=== PATIENT | female | born 1950 | race Two or more races ===

== ENCOUNTER 2020-11-10 10:00 | Outpatient (RCR) | payer MEDICARE, SELFPAY | END 2020-12-15 10:14 | disposition home or self-care (01) | LOC: HO.OT 10:00 | PROVIDERS: Visit Provider Orthopaedic Surgery | DX: S52.502P Unspecified fracture of the lower end of left radius, subsequent encounter for closed fracture with malunion (principal) | CPT/HCPCS: 29125; 97110; 97165; 97760 ==

== ENCOUNTER 2024-02-01 13:22 | Emergency (ER) | payer MEDICARE, SELFPAY ==
--- NOTE | ~2024-02-01 | XR_ITS ---
EXAMINATION: XR RIBS, RIGHT CLINICAL INFORMATION: Tenderness to palpation right-sided rib cage. COMPARISON: Chest radiograph 03/29/2017. TECHNIQUE: 3 views of the right ribs were obtained. FINDINGS: Normal appearance of the cardiomediastinal silhouette. No focal consolidation, pleural effusion or pneumothorax. Nondisplaced deformity of the left posterior fourth rib. Otherwise, no evidence of displaced rib fractures. XR/XR ribs RT min 3V w CXR1V IMPRESSION: 1. Nondisplaced fracture of the left posterior fourth rib. 2. No acute cardiopulmonary findings. 3. No evidence of right-sided rib fractures. Electronically signed by: Ilene Olivas MD 02/01/2024 03:00 PM EDT
[2024-02-01 13:33] VITALS: BP 145/84; PULSE 66; RESP 14; TEMP 36.1; O2SAT 95; BMI 27.1
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
--- NOTE | 2024-02-01 15:03 | ECG_ITS ---
Test Reason : rt side pain Blood Pressure : / mmHG Vent. Rate : 060 BPM Atrial Rate : 060 BPM P-R Int : 126 ms QRS Dur : 090 ms QT Int : 356 ms P-R-T Axes : 065 053 070 degrees QTc Int : 356 ms Normal sinus rhythm Nonspecific T wave abnormality Abnormal ECG When compared with ECG of 29-MAR-2017 17:31, Nonspecific T wave abnormality now evident in Lateral leads Referred By: Cony Flores Electronically Signed By:DANNY SANCHEZ
[2024-02-01 15:44] VITALS: BP 145/84; PULSE 66; RESP 14; TEMP 36.1; O2SAT 95
== END 2024-02-01 15:45 | disposition home or self-care (01) ==
PROVIDERS: Emergency Provider Emergency Medicine Emergency Medical Services
DX: R07.89 Other chest pain (principal); N64.4 Mastodynia; S22.32XA Fracture of one rib, left side, initial encounter for closed fracture; S27.9XXA Injury of unspecified intrathoracic organ, initial encounter; X58.XXXA Exposure to other specified factors, initial encounter; Y93.9 Activity, unspecified; Y92.9 Unspecified place or not applicable; Y99.9 Unspecified external cause status
CPT/HCPCS: 71101; 93005; 99283

== ENCOUNTER 2024-03-16 10:12 | Inpatient (IN) | payer MEDICARE, MEDICAID, SELFPAY ==
--- NOTE | ~2024-03-16 | XR_ITS ---
EXAMINATION: XR CHEST CLINICAL INFORMATION: Cough COMPARISON: Chest x-ray on 03/29/2017 TECHNIQUE: Frontal view of the chest was obtained. FINDINGS: The cardiac silhouette is normal. There is mild diffuse bronchial wall thickening. There are no areas of consolidation. There are no pleural effusions or pneumothoraces. The bones and soft tissues are unremarkable for the patient's age. XR/XR chest 1V IMPRESSION: Bronchial wall thickening may be infectious and/or inflammatory in etiology. Electronically signed by: Kathleen Long MD 03/16/2024 12:36 [place] [facility] [place]
[2024-03-16 10:26] VITALS: BP 126/37; PULSE 76; RESP 18; TEMP 36; O2SAT 92; BMI 31.8
--- NOTE | 2024-03-16 14:23 | ED.GENADULT ---
HPI - General Adult General Chief complaint: Dyspnea Stated complaint: sob Time Seen by Provider: 03/16/24 14:20 Source: patient and family Mode of arrival: ambulatory Limitations: no limitations History of Present Illness ED Provider: Sandra [facility] narrative: Patient is a 73-year-old female with history of COPD, smoking, currently smoking <1/2 PPD presenting to the emergency department with complaint of ongoing shortness of breath, dyspnea on exertion, cough productive of green sputum after recent treatment with azithromycin, prednisone and albuterol. Does not currently have a PCP because she recently arrived from [place], but has an appointment to establish care with one on 03/26. Denies chest pain or palpitations. Denies fevers. MD complaint: shortness of breath Onset (ago): week(s) Relieving factors: rest Exacerbating factors: other (exertion) Associated symptoms: cough Treatments prior to arrival: other Related Data Allergies Allergy/AdvReac Type Severity Reaction Status Date / Time No Known Allergies Allergy Verified 03/16/24 10:29 Review of Systems Review of Systems: As per HPI. Yes all other systems are reviewed and are negative Constitutional: Constitutional: Reports as per HPI [facility] Social History Social History Unable to assess alcohol history related to: Unknown Use of substances other than those prescribed or required for medical reasons: Unknown Advance Directives: No Advance Directives Information Provided: Yes Do you have a plan to hurt others: No Plan Physical Exam ED Vital Signs: Vital Signs - 24 hr 03/16/24 10:26 03/16/24 15:40 03/16/24 15:46 Temperature 96.8 F 98.7 F Pulse Rate 76 77 73 Respiratory Rate 18 18 18 Blood Pressure 126/37 L 135/52 L Pulse Oximetry 92 90 L Oxygen Delivery Method Room Air Room Air Oxygen Flow Rate 03/16/24 15:59 03/16/24 15:59 Temperature Pulse Rate Respiratory Rate Blood Pressure Pulse Oximetry 83 L 93 Oxygen Delivery Method Nasal Cannula Oxygen Flow Rate 2 BMI result Body Mass Index 31.8 Vital signs have been reviewed and appear to be correct. Blood pressure normal. Heart rate normal. Respiratory rate normal. Temperature normal. Oxygen saturation normal. Const General: cooperative, healthy appearing and no acute distress Orientation/consciousness: oriented to person, oriented to place, oriented to time and patient oriented x3 Limitations: no limitations HENMT Head: Yes normocephalic and Yes atraumatic Ears: external ears normal General nose exam: Normal external nose present Face and sinus: Yes face symmetric Mouth: oropharynx normal and moist mucous membranes Throat: Yes uvula midline Eyes Pupils: Equal, round and reactive pupils present Neck Neck: Yes normal visual inspection and Yes supple Resp Effort & Inspection: normal respiratory effort and able to speak in complete sentences Auscultation: diminished lung sounds diffuse Cardio Rate: regular rate Rhythm: regular rhythm Heart sounds: S1 normal heart sound present and S2 normal heart sound present GI Palpation (GI): Soft to palpation and nontender Auscultation: normoactive bowel sounds General: Yes no CVA tenderness Back/Spine/Pelvis Back: no CVA tenderness Skin General skin exam: elasticity normal and turgor normal Neuro General: oriented to person, oriented to place, oriented to time, patient oriented x3, moves all extremities, no focal motor deficits and CN's II-XI intact bilaterally Cranial nerves: Yes Equal, round and reactive pupils present Cognition (Neuro): normal cognition Extrem General: Yes full ROM, Yes no pedal edema and Yes no calf tenderness Psych Mental Status: mental status grossly normal Affect: normal affect Thought process: Normal thought process present Medications Administered Discontinued Medications Generic Name Dose Route Start Last Admin Trade Name Freq PRN Reason Stop Dose Admin Albuterol Sulfate 2.5 mg/ 0 mg 03/16/24 15:37 03/16/24 15:40 Albuterol/Ipratropium 3 ml INHALE 03/16/24 15:38 1 dose ONCE ONE Administration Medical Decision Making Medical Decision Making [facility] Narrative: Patient is a 73-year-old female with history of COPD, smoking, currently smoking <1/2 PPD presenting to the emergency department with complaint of ongoing shortness of breath, dyspnea on exertion, cough productive of green sputum after recent treatment with azithromycin, prednisone and albuterol. On exam patient is awake, A+Ox3, hypoxic on room air, VS otherwise WNL, afebrile, normal neurological exam without focal deficits, physical exam findings as above. Given reported symptoms and physical exam findings, initial differential includes COPD exacerbation, viral illness, covid, flu, bronchitis, pneumonia. Labs notable for slight leukocytosis without left shift. X-ray chest notable for bronchial wall thickening. My interpretation is in agreement with the radiologist's interpretation. Oxygen noted to drop to 83% on room air during ambulation trial. Patient placed on oxygen at 2lpm. VBG and respiratory panel ordered as well as mag and solu-medrol. Admission accepted by Haris Garcia NP. Differential Diagnosis Differential Diagnoses: The differential diagnosis associated with the presentation includes As per [facility] Admission/Observation Consideration of admission/observation: Escalation of care including admission/observation considered Consult Healthcare Provider Management of the patient was discussed with: Hospitalist Lab Data [facility] Lab Attestation statement: I reviewed the patient's lab results. As per [facility] 03/16/24 15:18 03/16/24 15:18 Labs: Lab Results 03/16/24 03/16/24 Range/Units 14:17 15:18 WBC 11.0 H (4.8-10.8) X10*3/uL RBC 4.53 (4.20-5.50) X10*6/uL Hgb 12.5 (12.0-16.0) g/dl Hct 39.5 (37.0-47.0) % MCV 87.2 (80.0-98.0) fL MCH 27.6 (27.0-33.0) pg MCHC 31.6 (31.0-35.0) g/dl RDW 15.9 (11.0-16.0) % Plt Count 330 (160-400) X10*3/uL MPV 9.5 (9.4-12.3) fL Immature Gran % (Auto) 0.7 H (0.0-0.4) % Neut % (Auto) 65.4 (45-73) % Lymph % (Auto) 23.3 (20-40) % [place] % (Auto) 9.4 (2-11) % Eos % (Auto) 0.8 (0-4) % Baso % (Auto) 0.4 (0-2) % Lymph # (Auto) 2.6 (1.2-4.9) X10*3/uL [place] # (Auto) 1.0 (0.1-1.2) X10*3/uL Eos # (Auto) 0.1 (0.0-0.4) X10*3/uL Baso # (Auto) 0.0 (0.0-0.2) X10*3/uL Abs Immat Gran (auto) 0.08 H (0.00-0.03) X10*3/uL Absolute Neuts (auto) 7.2 (2.0-8.3) x10*3/uL Absolute Nucleated RBC 0.000 (0.0-0.012) X10*3/uL Nucleated RBC % (auto) 0.0 (0.0-0.2) /100WBC Sodium 142 (135-145) mmol/L Potassium 4.4 (3.3-5.1) mmol/L Chloride 105 (96-108) mmol/L Carbon Dioxide 27 (22-29) mmol/L Anion Gap 14 (12-20) BUN 17 H (9-16) mg/dL Creatinine 0.88 (0.5-1.4) mg/dL Estim Creat Clear Calc 59.6 Estimated GFR > 60 Random Glucose 97 (60-115) mg/dL Calcium 9.5 (8.4-10.2) mg/dL Total Bilirubin 0.4 (0.0-1.0) mg/dL AST 16 (5-31) U/L ALT 11 (0-31) U/L Alkaline Phosphatase 61 (39-117) U/L Total Protein 7.2 (6.5-8.0) g/dL Albumin 3.7 (3.5-5.0) g/dL Influenza Type A (PCR) NEGATIVE (Negative) Influenza Type B (PCR) NEGATIVE (Negative) RSV RNA Qual (PCR) NEGATIVE (Negative) SARS-CoV-2 RNA (RT-PCR) NEGATIVE (Negative) Independent Interpretation I performed an independent interpretation of an: Plain X-Ray Interpretation: Bronchial wall thickening on cxr Radiology Impression Discussion of test interpretation with radiology: I have reviewed the radiologist's reading. Radiologist Impression: XR/XR chest 1V IMPRESSION: Bronchial wall thickening may be infectious and/or inflammatory in etiology. External Record Review External record reviewed: Inpatient record, Office record and Outpatient record Prescription Management I considered prescription management with: Antibiotic and Other Chronic Conditions Patient?s care impacted by: Other Discharge Plan Discharge Patient Disposition: Admitted As Inpatient Print Language: Greenlandic
[2024-03-16 15:18] LABS: Influenza A PCR NEGATIVE (Negative); Influenza B PCR NEGATIVE (Negative); Resp Syncy Virus RNA Qual PCR NEGATIVE (Negative); SARS COV2 PCR INHOUSE NEGATIVE (Negative)
[2024-03-16 15:21] LABS: MANUAL DIFF FLAG NO
[2024-03-16 15:24] LABS: Basophils Percent Auto 0.4 % (0-2); Eosinophils Absolute Auto 0.1 X10*3/uL (0.0-0.4); Eosinophils Percent Auto 0.8 % (0-4); Hematocrit 39.5 % (37.0-47.0); Hemoglobin 12.5 g/dl (12.0-16.0); Imm Gran Abs Auto 0.08 X10*3/uL (0.00-0.03); Imm Gran Pct Auto 0.7 % (0.0-0.4); Lymphocytes Absolute Auto 2.6 X10*3/uL (1.2-4.9); Lymphocytes Percent Auto 23.3 % (20-40); Mean Corpuscular HGB Conc 31.6 g/dl (31.0-35.0); Mean Corpuscular Hemoglobin 27.6 pg (27.0-33.0); Mean Corpuscular Volume 87.2 fL (80.0-98.0); Mean Platelet Volume 9.5 fL (9.4-12.3); Monocytes Percent Auto 9.4 % (2-11); Neutrophils Absolute Auto 7.2 x10*3/uL (2.0-8.3); Neutrophils Percent Auto 65.4 % (45-73); Platelet Count 330 X10*3/uL (160-400); Red Blood Count 4.53 X10*6/uL (4.20-5.50); Red Cell Distribution Width 15.9 % (11.0-16.0)
[2024-03-16 15:38] LABS: Alanine Aminotransferase 11 U/L (0-31); Albumin Level 3.7 g/dL (3.5-5.0); Alkaline Phosphatase 61 U/L (39-117); Anion Gap 14 (12-20); Aspartate Amino Transferase 16 U/L (5-31); Bilirubin Total 0.4 mg/dL (0.0-1.0); Blood Urea Nitrogen 17 mg/dL (9-16); Calcium 9.5 mg/dL (8.4-10.2); Carbon Dioxide 27 mmol/L (22-29); Chloride 105 mmol/L (96-108); Creatinine Clr Calc Pharmacy 59.6; Estimated Glomerular Filt Rate > 60; Glucose Random 97 mg/dL (60-115); Potassium 4.4 mmol/L (3.3-5.1); Sodium 142 mmol/L (135-145); Total Protein 7.2 g/dL (6.5-8.0)
[2024-03-16 15:40] VITALS: PULSE 77; RESP 18; O2SAT 91
[2024-03-16] MEDS: Albuterol Sulfate 2.5 MG, Albuterol/Iprat 2.5/0.5MG 3 ML 3 ML INHALE (15:40)
[2024-03-16 15:46] VITALS: BP 135/52; PULSE 73; RESP 18; TEMP 37.1; O2SAT 90
[2024-03-16 15:59] VITALS: O2SAT 83; O2SAT 93
--- NOTE | 2024-03-16 15:59 | PC.NURSE ---
this nurse took over care of patient at 3pm, RT was at bedside giving patient an updraft, this nurse obtained vitals while updraft was obtained pt was low 90s during updraft, a walking O2 ambulatioin trial was done- pt became WOO and began wheezing, pt O2 sat dropped to 83%, pt was returned to [facility] and placed on O2- pt currently 94% on 2L NC
[2024-03-16 17:21] LABS: Venous Blood Gas Refer to POC result
[2024-03-16 17:23] LABS: VBG Base Excess 5.2 mmol/L; VBG HCO3 31 mmol/L (22-26); VBG pCO2 53 mmHg; VBG pH 7.38 (7.32-7.43); VBG pO2 59 mmHg
--- NOTE | 2024-03-16 17:26 | PM.IMHP ---
History of Present Illness Date of Service: 03/16/24 Chief Complaint: cough 73-year-old woman presented with complaints of worsening shortness of breath and cough. She reports that she was treated for COPD exacerbation paroxysmal 1 week ago and completed a short steroid taper and antibiotics but she continued to feel unwell. She went to urgent care today and they sent her to the ER. Chest x-ray did show possible infectious process. Flu, RSV and COVID negative. No fever leukocytosis. Patient denied chest pain, nausea, vomiting, diarrhea, recent illness, sick contacts. She reports that she still smokes about half a pack of cigarettes a day. In the ER she was given a dose of albuterol, Rocephin, doxycycline and Solu-Medrol. She will be admitted for further management and treatment of acute hypoxic respiratory failure secondary to COPD exacerbation and pneumonia. Review of Systems Review of Systems: Denies any recent fever chills or decrease in appetite respiratory See HPI cardiovascular denied chest pain gastrointestinal denies any dysphagia abdominal pain nausea vomiting or diarrhea genitourinary denies any dysuria frequency or hematuria musculoskeletal denies any joint pain or swelling neuropsych denies any weakness or seizures all other systems reviewed are negative [facility] Medical History (Updated 03/16/24 @ 17:28 by Sabrina Garcia NP) Smoker COPD (chronic obstructive pulmonary disease) Social History Unable to assess alcohol history related to: Unknown Patient Tobacco Use Status: Current everyday Tobacco user Use of substances other than those prescribed or required for medical reasons: Unknown Advance Directives: No Advance Directives Information Provided: Yes Do you have a plan to hurt others: No Plan Nutrition Risks: No Nutritional Risk Meds Allergies Allergy/AdvReac Type Severity Reaction Status Date / Time No Known Allergies Allergy Verified 03/16/24 10:29 Active Medications: Current Medications Acetaminophen (Acetaminophen 325 Mg Tablet) 650 mg PO Q6H PRN PRN Reason: Pain, Mild (Pain Scale 1-3), fever or headache Albuterol Sulfate (Albuterol Sulfate (0.083%) 2.5 Mg/3 Ml Vial.Neb) 2.5 mg INHALE RQ4H WHILE AWAKE ASHELY Calcium Carbonate (Calcium Carbonate 750 Mg Tab.Chew) 750 mg PO Q4H PRN PRN Reason: Heartburn Ceftriaxone Sodium (Ceftriaxone Sodium 1 Gm Vial) 1 gm IVPUSH Q24H ASHELY Enoxaparin Sodium (Enoxaparin Sodium 40 Mg/0.4 Ml Syringe) 40 mg SUBCUT Q24H ASHELY Magnesium Sulfate (Magnesium Sulfate/H2o) 2 gm in 50 mls @ 25 mls/hr IV ONCE ONE Stop: 03/16/24 18:26 Azithromycin 500 mg/ Sodium (Chloride) 250 mls @ 125 mls/hr IV Q24H ASHELY Magnesium Hydroxide (Milk Of Magnesia 30 Ml Oral.Susp) 30 ml PO DAILY PRN PRN Reason: Constipation Melatonin (Melatonin 3 Mg Tablet) 6 mg PO BEDTIME PRN PRN Reason: Insomnia Methylprednisolone Sodium Succinate (Methylprednisolone Sod Succ 40 Mg/Ml Vial) 40 mg IVPUSH Q12H ASHELY Ondansetron HCl (Ondansetron Hcl 4 Mg/2 Ml Vial) 4 mg IVPUSH Q8H PRN PRN Reason: Nausea and Vomiting Sodium Chloride (0.9 % Sodium Chloride Flush 3 Ml Syringe) 3 ml IVFLUSH QSHIFT [facility] Home Medications ?Medication ?Instructions ?Recorded ?Confirmed ?Last Taken ?Type albuterol sulfate 0.63 mg/3 mL 0.63 mg inhalation Q4-6H wheezing 03/16/24 Unknown History solution for nebulization Physical Exam Vital Signs and Narrative: Vital Signs: Last Vital Signs Temp 98.7 F 03/16/24 15:46 Pulse 73 03/16/24 15:46 Resp 18 03/16/24 15:46 BP 135/52 L 03/16/24 15:46 Pulse Ox 93 03/16/24 15:59 O2 Del Method Nasal Cannula 03/16/24 15:59 O2 Flow Rate 2 03/16/24 15:59 BMI result Body Mass Index 31.8 Appearing in no acute distress head is normocephalic atraumatic eyes pupils are PERRLA sclera is anicteric mouth throat mucous membranes are intact and moist neck is supple no lymphadenopathy, no JVD noted lung sounds diminished heart regular rate rhythm, clear S1, S2 positive bowel sounds, abdomen is soft, nontender neuro patient is alert x3, no focal deficits Results Labs 03/16/24 15:18 03/16/24 15:18 Labs: Laboratory Results - last 24 hr 03/16/24 03/16/24 03/16/24 14:17 15:18 17:18 MCV 87.2 MCH 27.6 MCHC 31.6 RDW 15.9 Plt Count 330 MPV 9.5 Immature Gran % (Auto) 0.7 H Neut % (Auto) 65.4 Lymph % (Auto) 23.3 [place] % (Auto) 9.4 Eos % (Auto) 0.8 Baso % (Auto) 0.4 Lymph # (Auto) 2.6 [place] # (Auto) 1.0 Eos # (Auto) 0.1 Baso # (Auto) 0.0 Abs Immat Gran (auto) 0.08 H Absolute Neuts (auto) 7.2 Absolute Nucleated RBC 0.000 Nucleated RBC % (auto) 0.0 VBG pH 7.38 VBG pCO2 53 VBG pO2 59 VBG HCO3 31 H VBG O2 Saturation 91.0 VBG Base Excess 5.2 Anion Gap 14 Estim Creat Clear Calc 59.6 Estimated GFR > 60 Random Glucose 97 Calcium 9.5 Total Bilirubin 0.4 AST 16 ALT 11 Alkaline Phosphatase 61 Total Protein 7.2 Albumin 3.7 Influenza Type A (PCR) NEGATIVE Influenza Type B (PCR) NEGATIVE RSV RNA Qual (PCR) NEGATIVE SARS-CoV-2 RNA (RT-PCR) NEGATIVE Imaging Radiologist's Impressions: Impressions Chest X-Ray 03/16/24 10:50 IMPRESSION: Bronchial wall thickening may be infectious and/or inflammatory in etiology. Electronically signed by: Kathleen Long MD 03/16/2024 12:[address] [facility] Assessment and Plan (1) Acute exacerbation of chronic obstructive airways disease: Status: Acute Plan 73-year-old woman admitted with acute hypoxic respiratory failure secondary to COPD exacerbation and pneumonia Acute hypoxic respiratory failure secondary to COPD and pneumonia Failed outpatient therapy Rocephin and azithromycin Supplemental oxygen to keep oxygen saturation greater than 91% Cough suppressant Solu-Medrol, scheduled DuoNebs Smoker Discussed the importance of smoking cessation Nicotine replacement Obesity class 1. BMI 31.8 Discussed importance of weight management as this may be contributing to worsening of other comorbidities DVT prophylaxis with Lovenox Full code Quality Stroke Does the patient have a stroke diagnosis?: No VTE Prior VTE?: No VTE Risk Level:: Medical - moderate - high VTE Device Contraindication: Treatment Not Indicated VTE Drug Contraindication: N/A - Med Ordered
[2024-03-16] MEDS: cefTRIAXone sodium 1 GM VIAL IVPUSH (17:40)
[2024-03-16] MEDS: methylPREDNISolone Sod Succ 125 MG/2 ML VIAL 60 MG IVPUSH (17:40)
[2024-03-16] MEDS: Doxycycline Monohydrate 100 MG CAPSULE PO (17:40)
[2024-03-16] MEDS: Enoxaparin Sodium 40 MG/0.4 ML SYRINGE SUBCUT (17:41)
[2024-03-16] MEDS: Magnesium Sulfate/H2O 2 GM/50 ML PIGGYBACK IV (17:46)
--- NOTE | 2024-03-16 17:50 | PC.NURSE ---
pt medicated per orders, pt did not have blood cultures or lactic done- this nurse spoke with the provider who stated pt was COPD and white count wasnt elevated enough to require cultures/lactic. pt was medicated with abx per orders.
--- NOTE | 2024-03-16 17:57 | PHA.MEDREC ---
Addendum entered by Dayna Burnett RPh 03/16/24 18:27: Med rec reviewed by this [facility]. Original Note: Pharmacy Consult ? Medication Reconciliation Pharmacy has completed the medication reconciliation. Confirmed medications with patient family at bedside. They confirmed she finished the Albuterol inhaler, Prednisone 10mg tabs and Azithromycin 250mg tab last night. They confirmed she does not take any other medications; prescription or OTC.
[2024-03-16] MEDS: Azithromycin 500 MG in 0.9 % Sodium Chloride 250 ML 125 MG IV (18:16)
[2024-03-16] MEDS: Albuterol Sulfate (0.083%) 2.5 MG/3 ML VIAL.NEB INHALE (19:13)
[2024-03-16 19:14] VITALS: PULSE 73; RESP 18; O2SAT 95
[2024-03-17] VITALS (9 sets, daily range): BP systolic 131–160; BP diastolic 55–70; PULSE 65–90; RESP 16–18; TEMP 36.3–36.8; O2SAT 91–98; BMI 31.7
--- NOTE | 2024-03-17 00:47 | MHC.EDTECH ---
This pct assumed care of Patient at 0000 ,vitals taken and Patient belongings list done ,Call buchanan within Pt reach .
[2024-03-17 06:31] LABS: Basophils Percent Auto 0.1 % (0-2); Hematocrit 35.8 % (37.0-47.0); Hemoglobin 11.4 g/dl (12.0-16.0); Imm Gran Pct Auto 0.6 % (0.0-0.4); Lymphocytes Absolute Auto 1.2 X10*3/uL (1.2-4.9); Lymphocytes Percent Auto 7.7 % (20-40); MANUAL DIFF FLAG SCAN; Mean Corpuscular HGB Conc 31.8 g/dl (31.0-35.0); Mean Corpuscular Hemoglobin 27.5 pg (27.0-33.0); Mean Corpuscular Volume 86.5 fL (80.0-98.0); Mean Platelet Volume 9.7 fL (9.4-12.3); Monocytes Absolute Auto 0.2 X10*3/uL (0.1-1.2); Monocytes Percent Auto 1.3 % (2-11); Neutrophils Absolute Auto 14.1 x10*3/uL (2.0-8.3); Neutrophils Percent Auto 90.3 % (45-73); Platelet Count 328 X10*3/uL (160-400); Red Blood Count 4.14 X10*6/uL (4.20-5.50); Red Cell Distribution Width 15.7 % (11.0-16.0); SCAN SMEAR FLAG 1; White Blood Count 15.6 X10*3/uL (4.8-10.8)
[2024-03-17 06:53] LABS: Anion Gap 16 (12-20); Blood Urea Nitrogen 21 mg/dL (9-16); Calcium 9.4 mg/dL (8.4-10.2); Carbon Dioxide 25 mmol/L (22-29); Chloride 104 mmol/L (96-108); Creatinine Clr Calc Pharmacy 60.4; Estimated Glomerular Filt Rate > 60; Glucose Random 148 mg/dL (60-115); Magnesium 2.4 mg/dL (1.6-2.6); Potassium 4.6 mmol/L (3.3-5.1); Sodium 140 mmol/L (135-145)
[2024-03-17 07:23] LABS: SLIDE REVIEW VERIFIED
[2024-03-17] MEDS: Albuterol Sulfate (0.083%) 2.5 MG/3 ML VIAL.NEB INHALE ×4 (07:39→20:27)
--- NOTE | 2024-03-17 09:07 | MHC.CM.PN ---
IMM 03/17/24 Female DX COPD EXAC. Her son lives with her. She uses a cane prn. She could uses help with ADLs per son, Lux. A referral has been sent to [facility]. A new PCP appointment is scheduled 03/26/24 with Gemini Davalos. A HCP has been documented, copied + scanned into EMR. DP home with [facility]. Patients son will provide transportation home at discharge.
[2024-03-17] MEDS: guaiFENesin DM 100/10/5 ML 5 ML SYRUP PO ×2 (09:31→17:17)
[2024-03-17] MEDS: Nicotine Polacrilex 2 MG GUM BUCCAL ×2 (09:31→17:09)
[2024-03-17 09:35] LABS: Adenovirus PCR Not Detected (Not Detect.); Bordetella parapertussis PCR Not Detected (Not Detect.); Bordetella pertussis PCR Not Detected (Not Detect.); Chlamydia pneumoniae PCR Not Detected (Not Detect.); Coronavirus 229E PCR Not Detected (Not Detect.); Coronavirus HKU1 PCR Not Detected (Not Detect.); Coronavirus NL63 PCR Not Detected (Not Detect.); Coronavirus OC43 PCR Not Detected (Not Detect.); Human metapneumovirus PCR Not Detected (Not Detect.); Influenza A PCR Not Detected (Not Detect.); Influenza B PCR Not Detected (Not Detect.); Mycoplasma pneumoniae PCR Not Detected (Not Detect.); Parainfluenza 1 PCR Not Detected (Not Detect.); Parainfluenza 2 PCR Not Detected (Not Detect.); Parainfluenza 3 PCR Not Detected (Not Detect.); Parainfluenza 4 PCR Not Detected (Not Detect.); RSV PCR Not Detected (Not Detect.); Rhino/Enterovirus PCR Not Detected (Not Detect.)
[2024-03-17] MEDS: Flu Vacc TS2024-25(6mos up)/PF 0.5 ML SYRINGE IM (09:52)
[2024-03-17 10:03] LABS: SARS-CoV-2 PCR Not Detected (Not Detect.)
--- NOTE | 2024-03-17 10:20 | HO.PM.IMPN ---
Subjective Subjective Date of Service: 03/17/24 Review of Systems Follow up COPD exacerabtion feeling better but still wheezy Physical Exam Vital Signs: Vital Signs: Last Vital Signs Temp 97.3 F 03/17/24 08:00 Pulse 84 03/17/24 08:00 Resp 18 03/17/24 08:00 BP 160/70 H 03/17/24 08:00 Pulse Ox 91 L 03/17/24 08:00 O2 Del Method Room Air 03/17/24 08:00 O2 Flow Rate 1 03/17/24 06:17 BMI result Body Mass Index 31.7 Appearing in no acute distress lung sounds exp wheezing heart regular rate rhythm, clear S1, S2 positive bowel sounds, abdomen is soft, nontender neuro patient is alert x3, no focal deficits Objective Data Active Medications Acetaminophen (Acetaminophen 325 Mg Tablet) 650 mg PO Q6H PRN PRN Reason: Pain, Mild (Pain Scale 1-3), fever or headache Albuterol Sulfate (Albuterol Sulfate (0.083%) 2.5 Mg/3 Ml Vial.Neb) 2.5 mg INHALE RQ4H WHILE AWAKE [facility] Last Admin: 03/17/24 07:39 Dose: 2.5 mg Documented By: LAURENT Calcium Carbonate (Calcium Carbonate 750 Mg Tab.Chew) 750 mg PO Q4H PRN PRN Reason: Heartburn Ceftriaxone Sodium (Ceftriaxone Sodium 1 Gm Vial) 1 gm IVPUSH Q24H [facility] Enoxaparin Sodium (Enoxaparin Sodium 40 Mg/0.4 Ml Syringe) 40 mg SUBCUT Q24H [facility] Last Admin: 03/16/24 17:41 Dose: 40 mg Documented By: DUSTIN Guaifenesin/Dextromethorphan (Guaifenesin Dm 100/10/5 Ml 5 Ml Syrup) 5 ml PO Q4H PRN PRN Reason: Cough Last Admin: 03/17/24 09:31 Dose: 5 ml Documented By: CHUCK Azithromycin 500 mg/ Sodium (Chloride) 250 mls @ 125 mls/hr IV Q24H [facility] Last Infusion: 03/17/24 08:42 Dose: Infused Documented By: CHUCK Magnesium Hydroxide (Milk Of Magnesia 30 Ml Oral.Susp) 30 ml PO DAILY PRN PRN Reason: Constipation Melatonin (Melatonin 3 Mg Tablet) 6 mg PO BEDTIME PRN PRN Reason: Insomnia Methylprednisolone Sodium Succinate (Methylprednisolone Sod Succ 40 Mg/Ml Vial) 40 mg IVPUSH Q12H [facility] Nicotine Polacrilex (Nicotine Polacrilex 2 Mg Gum) 2 mg BUCCAL Q1H PRN PRN Reason: Nicotine Cravings Last Admin: 03/17/24 09:31 Dose: 2 mg Documented By: CHUCK Ondansetron HCl (Ondansetron Hcl 4 Mg/2 Ml Vial) 4 mg IVPUSH Q8H PRN PRN Reason: Nausea and Vomiting Sodium Chloride (0.9 % Sodium Chloride Flush 3 Ml Syringe) 3 ml IVFLUSH QSHIFT [facility] Last Admin: 03/17/24 08:42 Dose: Not Given Documented By: CHUCK Non-Admin Reason: Off Unit: Surgery Labs 03/17/24 06:23 03/17/24 06:23 Labs: Laboratory Results - last 24 hr 03/16/24 03/16/24 03/16/24 14:17 15:18 17:18 MCV 87.2 MCH 27.6 MCHC 31.6 RDW 15.9 Plt Count 330 MPV 9.5 Immature Gran % (Auto) 0.7 H Neut % (Auto) 65.4 Lymph % (Auto) 23.3 [place] % (Auto) 9.4 Eos % (Auto) 0.8 Baso % (Auto) 0.4 Lymph # (Auto) 2.6 [place] # (Auto) 1.0 Eos # (Auto) 0.1 Baso # (Auto) 0.0 Abs Immat Gran (auto) 0.08 H Absolute Neuts (auto) 7.2 Absolute Nucleated RBC 0.000 Nucleated RBC % (auto) 0.0 Smear Tech's Comments VBG pH 7.38 VBG pCO2 53 VBG pO2 59 VBG HCO3 31 H VBG O2 Saturation 91.0 VBG Base Excess 5.2 Anion Gap 14 Estim Creat Clear Calc 59.6 Estimated GFR > 60 Random Glucose 97 Calcium 9.5 Magnesium Total Bilirubin 0.4 AST 16 ALT 11 Alkaline Phosphatase 61 Total Protein 7.2 Albumin 3.7 Respiratory Panel [place]alera Adenovirus (Rapid PCR) B.pert (TEM-PCR) B.parapertussis DNA PCR C. pneumoniae DNA (PCR) Coronavirus OC43 (PCR) Coronavirus HKU1 (PCR) Coronavirus 229E (PCR) Coronavirus NL63 (PCR) Human Metapneumovir PCR Influenza A (RT-PCR) Influenza Type A (PCR) NEGATIVE Influenza B (RT-PCR) Influenza Type B (PCR) NEGATIVE M. pneumoniae (PCR) Parainfluenza 1 (PCR) Parainfluenza 2 (PCR) Parainfluenza 3 (PCR) Parainfluenza 4 (PCR) RSV (PCR) RSV RNA Qual (PCR) NEGATIVE Entero/Rhino (PCR) SARS-CoV-2 RNA (RT-PCR) NEGATIVE 03/16/24 03/17/24 19:52 06:23 MCV 86.5 MCH 27.5 MCHC 31.8 RDW 15.7 Plt Count 328 MPV 9.7 Immature Gran % (Auto) 0.6 H Neut % (Auto) 90.3 H Lymph % (Auto) 7.7 L [place] % (Auto) 1.3 L Eos % (Auto) 0.0 Baso % (Auto) 0.1 Lymph # (Auto) 1.2 [place] # (Auto) 0.2 Eos # (Auto) 0.0 Baso # (Auto) 0.0 Abs Immat Gran (auto) 0.10 H Absolute Neuts (auto) 14.1 H Absolute Nucleated RBC 0.000 Nucleated RBC % (auto) 0.0 Smear Tech's Comments VERIFIED VBG pH VBG pCO2 VBG pO2 VBG HCO3 VBG O2 Saturation VBG Base Excess Anion Gap 16 Estim Creat Clear Calc 60.4 Estimated GFR > 60 Random Glucose 148 H Calcium 9.4 Magnesium 2.4 Total Bilirubin AST ALT Alkaline Phosphatase Total Protein Albumin Respiratory Panel Escalera See Note Adenovirus (Rapid PCR) Not Detected B.pert (TEM-PCR) Not Detected B.parapertussis DNA PCR Not Detected C. pneumoniae DNA (PCR) Not Detected Coronavirus OC43 (PCR) Not Detected Coronavirus HKU1 (PCR) Not Detected Coronavirus 229E (PCR) Not Detected Coronavirus NL63 (PCR) Not Detected Human Metapneumovir PCR Not Detected Influenza A (RT-PCR) Not Detected Influenza Type A (PCR) Influenza B (RT-PCR) Not Detected Influenza Type B (PCR) M. pneumoniae (PCR) Not Detected Parainfluenza 1 (PCR) Not Detected Parainfluenza 2 (PCR) Not Detected Parainfluenza 3 (PCR) Not Detected Parainfluenza 4 (PCR) Not Detected RSV (PCR) Not Detected RSV RNA Qual (PCR) Entero/Rhino (PCR) Not Detected SARS-CoV-2 RNA (RT-PCR) Not Detected Assessment and Plan (1) Acute exacerbation of chronic obstructive airways disease: Status: Acute Plan 73-year-old woman admitted with acute hypoxic respiratory failure secondary to COPD exacerbation and pneumonia Acute hypoxic respiratory failure secondary to COPD and pneumonia Failed outpatient therapy Continue Rocephin and azithromycin, cough suppressant Solu-Medrol, scheduled DuoNebs Supplemental oxygen to keep oxygen saturation greater than 91% Leukocytosis Likely secondary to steroids Smoker Discussed the importance of smoking cessation Nicotine replacement Obesity class 1. BMI 31.7 Discussed importance of weight management as this may be contributing to worsening of other comorbidities DVT prophylaxis with Lovenox Attending Dr. Vora Full code Quality Stroke Does the patient have a stroke diagnosis?: No VTE Prior VTE?: No VTE Risk Level:: Medical - moderate - high VTE Device Contraindication: Treatment Not Indicated VTE Drug Contraindication: N/A - Med Ordered
[2024-03-17] MEDS: Enoxaparin Sodium 40 MG/0.4 ML SYRINGE SUBCUT (17:08)
[2024-03-17] MEDS: cefTRIAXone sodium 1 GM VIAL IVPUSH (17:09)
[2024-03-17] MEDS: 0.9 % Sodium Chloride Flush 3 ML SYRINGE IVFLUSH ×2 (17:09→22:00)
[2024-03-17] MEDS: Azithromycin 500 MG in 0.9 % Sodium Chloride 250 ML 125 MG IV (17:17)
--- NOTE | 2024-03-17 18:07 | P.DS_ITS ---
DS: Providers Provider Date of admission: 03/16/24 17:19 Primary care physician: Lindsay Nelson MD DS: Diagnosis Discharge Diagnosis (1) Acute exacerbation of chronic obstructive airways disease: Status: Acute DS: Summary Hospital Course Hospital Course: HP as per admitting provider. 73-year-old woman presented with complaints of worsening shortness of breath and cough. She reports that she was treated for COPD exacerbation paroxysmal 1 week ago and completed a short steroid taper and antibiotics but she continued to feel unwell. She went to urgent care today and they sent her to the ER. Chest x-ray did show possible infectious process. Flu, RSV and COVID negative. No fever leukocytosis. Patient denied chest pain, nausea, vomiting, diarrhea, recent illness, sick contacts. She reports that she still smokes about half a pack of cigarettes a day. In the ER she was given a d ose of albuterol, Rocephin, doxycycline and Solu-Medrol. She will be admitted for further management and treatment of acute hypoxic respiratory failure secondary to COPD exacerbation and pneumonia. 73 year old women admitted for acute hypoxic respiratory failure secondary to COPD exacerbation and pneumonia. Treated with scheduled IV steroids and duonebs as well as rocephin and azithromycin for pneumonia. Patient has been off oxygen and ambulating without difficulty. Leukocytosis secondary to steroid use and not sepsis. She is a smoker and was educated in the importance of smoking cessation to avoid further episodes of COPD exacerbation. Plan is to discharge patient on short course of prednisone taper and albuterol inhalor. She can follow up with her PCP on management of this. Obesity class 1. BMI 31.7 Discussed importance of weight management as this may be contributing to worsening of other comorbidities Physical Exam Vital Signs: Vital Signs: Last Vital Signs Temp 97.8 F 03/17/24 15:29 Pulse 90 03/17/24 17:04 Resp 17 03/17/24 17:04 BP 132/58 L 03/17/24 15:29 Pulse Ox 92 03/17/24 15:29 O2 Del Method Room Air 03/17/24 15:29 O2 Flow Rate 1 03/17/24 06:17 BMI result Body Mass Index 31.7 DS: Data Data Completed and Pending Labs on day of discharge: Laboratory Results - last 24 hr 03/16/24 03/17/24 19:52 06:23 WBC 15.6 H RBC 4.14 L Hgb 11.4 L Hct 35.8 L MCV 86.5 MCH 27.5 MCHC 31.8 RDW 15.7 Plt Count 328 MPV 9.7 Immature Gran % (Auto) 0.6 H Neut % (Auto) 90.3 H Lymph % (Auto) 7.7 L [place] % (Auto) 1.3 L Eos % (Auto) 0.0 Baso % (Auto) 0.1 Lymph # (Auto) 1.2 [place] # (Auto) 0.2 Eos # (Auto) 0.0 Baso # (Auto) 0.0 Abs Immat Gran (auto) 0.10 H Absolute Neuts (auto) 14.1 H Absolute Nucleated RBC 0.000 Nucleated RBC % (auto) 0.0 Smear Tech's Comments VERIFIED Sodium 140 Potassium 4.6 Chloride 104 Carbon Dioxide 25 Anion Gap 16 BUN 21 H Creatinine 0.87 Estim Creat Clear Calc 60.4 Estimated GFR > 60 Random Glucose 148 H Calcium 9.4 Magnesium 2.4 Respiratory Panel Escalera See Note Adenovirus (Rapid PCR) Not Detected B.pert (TEM-PCR) Not Detected B.parapertussis DNA PCR Not Detected C. pneumoniae DNA (PCR) Not Detected Coronavirus OC43 (PCR) Not Detected Coronavirus HKU1 (PCR) Not Detected Coronavirus 229E (PCR) Not Detected Coronavirus NL63 (PCR) Not Detected Human Metapneumovir PCR Not Detected Influenza A (RT-PCR) Not Detected Influenza B (RT-PCR) Not Detected M. pneumoniae (PCR) Not Detected Parainfluenza 1 (PCR) Not Detected Parainfluenza 2 (PCR) Not Detected Parainfluenza 3 (PCR) Not Detected Parainfluenza 4 (PCR) Not Detected RSV (PCR) Not Detected Entero/Rhino (PCR) Not Detected SARS-CoV-2 RNA (RT-PCR) Not Detected Discharge Plan Discharge Patient Disposition: Home, Self-Care Discharge Diagnosis: COPD exacerbation Referrals: Lindsay Nelson MD [Primary Care Provider] - 1 Week Discharge Medications: New albuterol sulfate 90 mcg/actuation aerosol powdr breath activated 2 inh inhalation Q4H PRN (Reason: shortness of breath or wheezing) Qty: 1 0RF prednisone 10 mg tablet See Taper PO DIRECTED Qty: 20 0RF Taper: Prednisone 40 mg daily for 2 Days and 0 Hour 30 mg daily for 2 Days and 0 Hour 20 mg daily for 2 Days and 0 Hour 10 mg daily for 2 Days and 0 Hour Rx Instructions: see taper instructions No Action No Known Home Meds Diet: Advance to usual diet Activity on Discharge: As tolerated Stand Alone Forms: Patient Portal Discharge page Print Language: [place]anian Care Plan Goals: Complete prednisone taper use albuterol as needed Health Concerns: COPD exacerbation Plan of Treatment: Follow up with primary care provider as needed Assessment: See discharge summary
[2024-03-17] MEDS: methylPREDNISolone Sod Succ 40 MG/ML VIAL IVPUSH (21:59)
[2024-03-18] VITALS (8 sets, daily range): BP systolic 142–163; BP diastolic 63–71; PULSE 62–79; RESP 16–24; TEMP 36.1–37.1; O2SAT 91–98
[2024-03-18] MEDS: Albuterol Sulfate (0.083%) 2.5 MG/3 ML VIAL.NEB INHALE ×4 (03:30→21:09)
[2024-03-18] MEDS: methylPREDNISolone Sod Succ 40 MG/ML VIAL IVPUSH (08:25)
[2024-03-18] MEDS: 0.9 % Sodium Chloride Flush 3 ML SYRINGE IVFLUSH ×3 (08:25→20:14)
--- NOTE | 2024-03-18 11:25 | MHC.CM.PN ---
Per MD rounds no DC today. Patient continues with wheezing. Steroid dose has been increased. DP home with [facility]. Her son will provide transportation home.
--- NOTE | 2024-03-18 12:03 | P.PNIM_ITS ---
Subjective Subjective Date of Service: 03/18/24 Interval History: Minimal improvement since admission per patient. States feels short of breath with minimal exertion Review of Systems Denies chest pain Admits shortness of breath Denies nausea vomiting diarrhea Denies fever chills Physical Exam 2 Vital Signs: Vital Signs: Last Vital Signs Temp 97.6 F 03/18/24 07:36 Pulse 76 03/18/24 11:40 Resp 18 03/18/24 11:40 BP 145/65 H 03/18/24 07:36 Pulse Ox 97 03/18/24 07:36 O2 Del Method Room Air 03/18/24 07:36 O2 Flow Rate 1 03/17/24 06:17 BMI result Body Mass Index 31.7 Const: Other: Awake alert oriented x3 speaking in short sentences only Resp: Other: Diminished throughout with dense expiratory wheezes in bases Cardio: Other: No S4; positive S1-S2; no S3 murmurs rubs or gallops GI: Other: Soft nontender nondistended normoactive bowel sounds Neuro: Other: Cranial nerves 2-12 grossly intact as tested. Motor 5/5 all extremities. Sensation is intact. Gait not observed Extrem: Other: No edema bilaterally Objective Data Active Medications Acetaminophen (Acetaminophen 325 Mg Tablet) 650 mg PO Q6H PRN PRN Reason: Pain, Mild (Pain Scale 1-3), fever or headache Albuterol Sulfate (Albuterol Sulfate (0.083%) 2.5 Mg/3 Ml Vial.Neb) 2.5 mg INHALE RQ4H WHILE AWAKE [facility] Last Admin: 03/18/24 11:38 Dose: 2.5 mg Documented By: TRINA Calcium Carbonate (Calcium Carbonate 750 Mg Tab.Chew) 750 mg PO Q4H PRN PRN Reason: Heartburn Ceftriaxone Sodium (Ceftriaxone Sodium 1 Gm Vial) 1 gm IVPUSH Q24H [facility] Last Admin: 03/17/24 17:09 Dose: 1 gm Documented By: CHUCK Enoxaparin Sodium (Enoxaparin Sodium 40 Mg/0.4 Ml Syringe) 40 mg SUBCUT Q24H [facility] Last Admin: 03/17/24 17:08 Dose: 40 mg Documented By: CHUCK Guaifenesin/Dextromethorphan (Guaifenesin Dm 100/10/5 Ml 5 Ml Syrup) 5 ml PO Q4H PRN PRN Reason: Cough Last Admin: 03/17/24 17:17 Dose: 5 ml Documented By: CHUCK Azithromycin 500 mg/ Sodium (Chloride) 250 mls @ 125 mls/hr IV Q24H [facility] Last Infusion: 03/17/24 20:47 Dose: Infused Documented By: JONATHAN Magnesium Hydroxide (Milk Of Magnesia 30 Ml Oral.Susp) 30 ml PO DAILY PRN PRN Reason: Constipation Melatonin (Melatonin 3 Mg Tablet) 6 mg PO BEDTIME PRN PRN Reason: Insomnia Methylprednisolone Sodium Succinate (Methylprednisolone Sod Succ 125 Mg/2 Ml Vial) 60 mg IVPUSH Q6H [facility] Nicotine Polacrilex (Nicotine Polacrilex 2 Mg Gum) 2 mg BUCCAL Q1H PRN PRN Reason: Nicotine Cravings Last Admin: 03/17/24 17:09 Dose: 2 mg Documented By: CHUCK Ondansetron HCl (Ondansetron Hcl 4 Mg/2 Ml Vial) 4 mg IVPUSH Q8H PRN PRN Reason: Nausea and Vomiting Sodium Chloride (0.9 % Sodium Chloride Flush 3 Ml Syringe) 3 ml IVFLUSH QSHIFT [facility] Last Admin: 03/18/24 08:25 Dose: 3 ml Documented By: LUCY Labs 03/17/24 06:23 03/17/24 06:23 Assessment and Plan (1) Acute exacerbation of chronic obstructive airways disease: Status: Acute (2) Pneumonia: Status: Acute Plan 73-year-old woman admitted with acute hypoxic respiratory failure secondary to COPD exacerbation and pneumonia ; failed outpatient therapies. Minimal improvement since admission 1.Acute hypoxic respiratory failure secondary to COPD and pneumonia -CTX/azithromycin (3) -increase solu-Medrol to 60 mg q.6 hours -supplemental O2 to maintain saturation greater than 91% -scheduled DuoNebs 2.Leukocytosis -reactive -follow CBC in a.m. Lovenox Full code Requires ongoing hospitalization to treat pneumonia with IV antibiotics that has failed outpatient therapies and to receive IV steroids Quality Stroke Does the patient have a stroke diagnosis?: No VTE Prior VTE?: No VTE Risk Level:: Medical - moderate - high VTE Device Contraindication: Treatment Not Indicated VTE Drug Contraindication: N/A - Med Ordered
[2024-03-18] MEDS: methylPREDNISolone Sod Succ 125 MG/2 ML VIAL 60 MG IVPUSH ×2 (15:14→20:13)
[2024-03-18] MEDS: cefTRIAXone sodium 1 GM VIAL IVPUSH (18:08)
[2024-03-18] MEDS: Enoxaparin Sodium 40 MG/0.4 ML SYRINGE SUBCUT (18:08)
[2024-03-18] MEDS: Azithromycin 500 MG in 0.9 % Sodium Chloride 250 ML 125 MG IV (18:14)
[2024-03-18] MEDS: Acetaminophen 325 MG TABLET 650 MG PO (21:02)
[2024-03-19] MEDS: methylPREDNISolone Sod Succ 125 MG/2 ML VIAL 60 MG IVPUSH ×2 (02:50→07:50)
[2024-03-19 03:37] VITALS: BP 150/65; PULSE 75; RESP 15; TEMP 36.2; O2SAT 92
[2024-03-19 06:54] LABS: Basophils Percent Auto 0.1 % (0-2); Hematocrit 35.9 % (37.0-47.0); Hemoglobin 11.3 g/dl (12.0-16.0); Imm Gran Abs Auto 0.18 X10*3/uL (0.00-0.03); Lymphocytes Absolute Auto 0.8 X10*3/uL (1.2-4.9); Lymphocytes Percent Auto 4.8 % (20-40); MANUAL DIFF FLAG SCAN; Mean Corpuscular HGB Conc 31.5 g/dl (31.0-35.0); Mean Corpuscular Hemoglobin 27.2 pg (27.0-33.0); Mean Corpuscular Volume 86.5 fL (80.0-98.0); Mean Platelet Volume 10.7 fL (9.4-12.3); Monocytes Absolute Auto 0.2 X10*3/uL (0.1-1.2); Monocytes Percent Auto 1.3 % (2-11); Neutrophils Absolute Auto 16.4 x10*3/uL (2.0-8.3); Neutrophils Percent Auto 92.8 % (45-73); Platelet Count 361 X10*3/uL (160-400); Red Blood Count 4.15 X10*6/uL (4.20-5.50); Red Cell Distribution Width 15.8 % (11.0-16.0); SCAN SMEAR FLAG 1; White Blood Count 17.7 X10*3/uL (4.8-10.8)
[2024-03-19 07:13] LABS: Alanine Aminotransferase 9 U/L (0-31); Albumin Level 3.4 g/dL (3.5-5.0); Alkaline Phosphatase 58 U/L (39-117); Anion Gap 14 (12-20); Aspartate Amino Transferase 13 U/L (5-31); Bilirubin Total 0.3 mg/dL (0.0-1.0); Blood Urea Nitrogen 22 mg/dL (9-16); Calcium 9.4 mg/dL (8.4-10.2); Carbon Dioxide 25 mmol/L (22-29); Chloride 105 mmol/L (96-108); Creatinine Clr Calc Pharmacy 62.5; Estimated Glomerular Filt Rate > 60; Glucose Fasting 164 mg/dL (60-99); Potassium 4.4 mmol/L (3.3-5.1); Sodium 140 mmol/L (135-145); Total Protein 6.5 g/dL (6.5-8.0)
[2024-03-19 07:43] VITALS: BP 163/71; PULSE 64; RESP 17; TEMP 36.6; O2SAT 92
[2024-03-19] MEDS: 0.9 % Sodium Chloride Flush 3 ML SYRINGE IVFLUSH (07:51)
[2024-03-19] MEDS: Albuterol Sulfate (0.083%) 2.5 MG/3 ML VIAL.NEB INHALE ×2 (08:13→11:58)
[2024-03-19 08:32] LABS: SLIDE REVIEW VERIFIED
[2024-03-19 11:01] VITALS: O2SAT 87; O2SAT 96
[2024-03-19 12:00] VITALS: PULSE 72; RESP 18
--- NOTE | 2024-03-19 13:57 | P.DS_ITS ---
DS: Providers Provider Date of Service: 03/19/24 Date of admission: 03/16/24 17:19 Date of discharge: 03/19/24 Primary care physician: Lindsay Nelson MD DS: Diagnosis Discharge Diagnosis (1) Acute exacerbation of chronic obstructive airways disease: Status: Acute (2) Pneumonia: Status: Acute DS: Summary Hospital Course Hospital Course: HP as per admitting provider. 73-year-old woman presented with complaints of worsening shortness of breath and cough. She reports that she was treated for COPD exacerbation paroxysmal 1 week ago and completed a short steroid taper and antibiotics but she continued to feel unwell. She went to urgent care today and they sent her to the ER. Chest x-ray did show possible infectious process. Flu, RSV and COVID negative. No fever leukocytosis. Patient denied chest pain, nausea, vomiting, diarrhea, recent illness, sick contacts. She reports that she still smokes about half a pack of cigarettes a day. In the ER she was given a dose of albuterol, Rocephin, doxycycline and Solu-Medrol. She will be admitted for further management and treatment of acute hypoxic respiratory failure secondary to COPD exacerbation and pneumonia. 73 year old women admitted for acute hypoxic respiratory failure secondary to COPD exacerbation and pneumonia. Treated with scheduled IV steroids and duonebs as well as rocephin and azithromycin for pneumonia. Patient has been off oxygen and ambulating without difficulty. Leukocytosis secondary to steroid use and not sepsis. She is a smoker and was educated in the importance of smoking cessation to avoid further episodes of COPD exacerbation. Plan is to discharge patient on short course of prednisone taper and albuterol inhalor. She can follow up with her PCP on management of this. Obesity class 1. BMI 31.7 Discussed importance of weight management as this may be contributing to worsening of other comorbidities Time Attestation Discharge Coordination Time (in mins): 35 Quality: Safe Use of Opioids Does Pt have an Active Cancer Diagnosis on the Problem List?: No Quality: Stroke Does the patient have a stroke diagnosis?: No Physical Exam Vital Signs: Vital Signs: Last Vital Signs Temp 98 F 03/19/24 07:43 Pulse 72 03/19/24 12:00 Resp 18 03/19/24 12:00 BP 163/71 H 03/19/24 07:43 Pulse Ox 87 L 03/19/24 11:01 O2 Del Method Room Air 03/19/24 11:01 O2 Flow Rate 1 03/17/24 06:17 BMI result Body Mass Index 31.7 Const: Other: Awake alert oriented x3 speaking in short sentences only Resp: Other: Diminished throughout with dense expiratory wheezes in bases Cardio: Other: No S4; positive S1-S2; no S3 murmurs rubs or gallops GI: Other: Soft nontender nondistended normoactive bowel sounds Neuro: Other: Cranial nerves 2-12 grossly intact as tested. Motor 5/5 all extremities. Sensation is intact. Gait not observed Extrem: Other: No edema bilaterally DS: Data Data Completed and Pending Labs on day of discharge: Laboratory Results - last 24 hr 03/19/24 05:33 WBC 17.7 H RBC 4.15 L Hgb 11.3 L Hct 35.9 L MCV 86.5 MCH 27.2 MCHC 31.5 RDW 15.8 Plt Count 361 MPV 10.7 Immature Gran % (Auto) 1.0 H Neut % (Auto) 92.8 H Lymph % (Auto) 4.8 L [place] % (Auto) 1.3 L Eos % (Auto) 0.0 Baso % (Auto) 0.1 Lymph # (Auto) 0.8 L [place] # (Auto) 0.2 Eos # (Auto) 0.0 Baso # (Auto) 0.0 Abs Immat Gran (auto) 0.18 H Absolute Neuts (auto) 16.4 H Absolute Nucleated RBC 0.000 Nucleated RBC % (auto) 0.0 Smear Tech's Comments VERIFIED Sodium 140 Potassium 4.4 Chloride 105 Carbon Dioxide 25 Anion Gap 14 BUN 22 H Creatinine 0.84 Estim Creat Clear Calc 62.5 Estimated GFR > 60 Fasting Glucose 164 H Calcium 9.4 Total Bilirubin 0.3 AST 13 ALT 9 Alkaline Phosphatase 58 Total Protein 6.5 Albumin 3.4 L Discharge Plan Discharge Anticipated Discharge Date/Time: 03/19/24 13:52 Patient Disposition: Home, Self-Care Discharge Diagnosis: COPD exacerbation Referrals: Lindsay Nelson MD [Primary Care Provider] - 1 Week Discharge Medications: New albuterol sulfate 90 mcg/actuation aerosol powdr breath activated 2 inh inhalation Q4H PRN (Reason: shortness of breath or wheezing) Qty: 1 0RF prednisone 10 mg tablet See Rx Instructions .Route .COMPLEX Qty: 45 0RF Rx Instructions: 10 mg orally; 5 tabs p.o. daily x3 days; 4 tabs p.o. daily x3 days; 3 tabs daily x3 days; 2 tabs daily x3 days; 1 tab daily x3 days cefuroxime axetil 500 mg tablet 500 mg PO BID 7 Days Qty: 14 0RF Discharge Orders: Discharge Order (Routine); Ordered 03/19/24 Ordered By: Dickson Wallace Diet: Advance to usual diet Activity on Discharge: As tolerated Stand Alone Forms: Patient Portal Discharge page Print Language: [place] Care Plan Goals: Complete prednisone taper use albuterol as needed Health Concerns: COPD exacerbation Plan of Treatment: Follow up with primary care provider as needed Assessment: See discharge summary
[2024-03-19 14:03] VITALS: PULSE 82; PULSE 91; O2SAT 89; O2SAT 93
--- NOTE | 2024-03-19 14:19 | MHC.CM.PN ---
IMM 03/19/24 Patient is discharged today to home self care. She has a new PCP appt scheduled 03/26/24. Her son will provide transportation home.
== END 2024-03-19 14:51 | disposition home or self-care (01) | DRG 190 ==
LOC: HO.ED 16:44 → HO.EDOVER 17:24 → HO.S3 03-17 00:37
PROVIDERS: Physician Assistant Medical; Registered Nurse Emergency; Admitting Provider Nurse Practitioner Acute Care; Emergency Provider Emergency Medicine; PCP Internal Medicine; Visit Provider Hospitalist
DX: J44.0 Chronic obstructive pulmonary disease with (acute) lower respiratory infection (principal); J18.9 Pneumonia, unspecified organism; J96.01 Acute respiratory failure with hypoxia; J44.1 Chronic obstructive pulmonary disease with (acute) exacerbation; E66.811 Obesity, class 1; Z68.31 Body mass index [BMI] 31.0-31.9, adult; Z71.3 Dietary counseling and surveillance; F17.210 Nicotine dependence, cigarettes, uncomplicated; Z71.6 Tobacco abuse counseling; Z23 Encounter for immunization
CPT/HCPCS: 0241U; 36415; 71045; 80048; 80053; 82803; 83735; 85025; 87633; 90656; 94640; 99285; J0456; J0696; J1650; J2919; J3475

== ENCOUNTER → 2024-03-16 17:19 | Outpatient (BNV) | payer MEDICARE, MEDICAID, SELFPAY | PROVIDERS: Admitting Provider Nurse Practitioner Acute Care; Emergency Provider Emergency Medicine; Visit Provider Nurse Practitioner Acute Care | DX: J44.1 Chronic obstructive pulmonary disease with (acute) exacerbation (principal); J18.9 Pneumonia, unspecified organism | CPT/HCPCS: 99223; 99232; 99239 ==

== ENCOUNTER 2024-04-01 11:34 | Outpatient (REF) | payer MEDICARE, MEDICAID, SELFPAY | END 2024-04-01 11:35 | disposition home or self-care (01) | LOC: HO.MAMMO 11:34 | PROVIDERS: PCP Internal Medicine; Visit Provider Internal Medicine | DX: Z13.89 Encounter for screening for other disorder (principal) ==

== ENCOUNTER 2024-04-21 06:38 | Outpatient (REF) | payer MEDICARE, MEDICAID, SELFPAY ==
[2024-04-21 08:07] LABS: Alanine Aminotransferase 13 U/L (0-31); Albumin Level 3.6 g/dL (3.5-5.0); Alkaline Phosphatase 70 U/L (39-117); Anion Gap 11 (12-20); Aspartate Amino Transferase 17 U/L (5-31); Bilirubin Total 0.2 mg/dL (0.0-1.0); Blood Urea Nitrogen 15 mg/dL (9-16); Calcium 9.2 mg/dL (8.4-10.2); Carbon Dioxide 28 mmol/L (22-29); Chloride 106 mmol/L (96-108); Cholesterol 185 mg/dL (<200); Estimated Glomerular Filt Rate > 60; Glucose Random 103 mg/dL (60-115); HDL Cholesterol 39 mg/dL (>40); LDL Cholesterol Calculated 120 mg/dL (<100); Potassium 4.4 mmol/L (3.3-5.1); Sodium 141 mmol/L (135-145); Total Protein 7.3 g/dL (6.5-8.0); Triglycerides 130 mg/dL (<150)
[2024-04-21 08:21] LABS: Estimated Average Glucose 146 mg/dL; Hemoglobin A1C 145.6891 umol/L; Hemoglobin A1c % 6.7 % (<6.0)
[2024-04-21 08:34] LABS: Thyroid Stimulating Hormone 2.89 uIU/mL (0.32-4.0)
== END 2024-04-21 06:39 | disposition home or self-care (01) ==
LOC: HO.LAB 06:38
PROVIDERS: PCP Internal Medicine; Visit Provider Internal Medicine
DX: H26.9 Unspecified cataract (principal); I10 Essential (primary) hypertension; J44.9 Chronic obstructive pulmonary disease, unspecified; R09.02 Hypoxemia; R73.01 Impaired fasting glucose; R92.8 Other abnormal and inconclusive findings on diagnostic imaging of breast
CPT/HCPCS: 36415; 80053; 80061; 83036; 84443

== ENCOUNTER 2024-05-13 10:35 | Outpatient (REF) | payer MEDICARE, MEDICAID, SELFPAY ==
--- NOTE | ~2024-05-13 | MM_ITS ---
EXAMINATION: MM DIAGNOSTIC DIGITAL BREAST TOMOSYNTHESIS, BILATERAL CLINICAL INFORMATION: Calcifications in the upper inner right breast from outside institution were previously recommended for biopsy. COMPARISON: Mammography: Comparison is made with relevant prior exams. TECHNIQUE: Digital breast mammography with tomosynthesis is performed in both the craniocaudal and mediolateral oblique views along with computer-aided detection (CAD). FINDINGS: There are scattered areas of fibroglandular density (ACR BI-RADS breast composition Category b). There are 3-4 punctate coarse calcifications in the upper central upper inner right breast middle depth. No suspicious masses or other abnormal findings. Results are provided to the patient at time of visit by the technologist. MM/MM tomosynthesis diagnostic BI IMPRESSION: 3-4 punctate coarse calcifications in the upper inner breast. Stereotactic core needle biopsy versus six-month follow-up was offered to the patient. The patient prefers six-month follow-up with magnification views for further evaluation of stability. ASSESSMENT: BI-RADS BI-RADS 3 - Probably benign finding(s) - 6 month follow-up suggested RECOMMENDATION: 6 Month F/U This patient's information was entered into a reminder system with a target due date for their next mammogram. Electronically signed by: Josefina Meléndez DO 05/13/2024 11:33 AM YOVANI
== END 2024-05-13 10:36 | disposition home or self-care (01) ==
LOC: HO.MAMMO 10:35
PROVIDERS: PCP Internal Medicine; Visit Provider Internal Medicine
DX: R92.8 Other abnormal and inconclusive findings on diagnostic imaging of breast (principal)
CPT/HCPCS: 77062; 77066

== ENCOUNTER → 2024-05-13 11:30 | Outpatient (BNV) | payer MEDICARE, MEDICAID, SELFPAY | PROVIDERS: PCP Internal Medicine; Visit Provider Internal Medicine | DX: R92.1 Mammographic calcification found on diagnostic imaging of breast (principal) | CPT/HCPCS: 77066; G0279 ==

== ENCOUNTER 2024-05-21 10:21 | Outpatient (AMB) | payer MEDICARE, MEDICAID, SELFPAY ==
[2024-05-21 10:22] VITALS: BP 118/60; PULSE 80; O2SAT 94
--- NOTE | 2024-05-21 10:22 | A.OFFVIS_ITS ---
Vital Signs 05/21/24 10:22 Weight 164 lb 3.91 oz BP 118/60 Blood Pressure Location Rt brachial Position Sitting Pulse 80 Pulse Source Pulse Oximeter Pulse Oximetry (%) 94 Oxygen Delivery Method Room Air Intake Visit Reasons: copd/hypoxia Allergies No Known Allergies Allergy (Verified 05/21/24 10:28) HPI Comments Details: The patient is here for pulmonary evaluation. The patient is a 74 year woman with known history tobacco dependency and COPD. The patient has been struggling now for more than a year with worsening shortness of breath. She does have an oximeter in the house and sometimes her oxygen drops to the 70s. She has been trying to get oxygen but is been hard for her to do so. The patient has been on Trelegy inhaler. She also has a nebulizer. Although is very old more than 5 years that she brought from [place]. She has not been able to get any supplies for it. Is no longer working appropriately were not providing enough air pressure. At this point the nebulizer is broken beyond repair will request a replacement. The patient did go for walking oximetry in the office. She did desaturate down to about 86% with activity. We did place her on a portable oxygen concentrator at 3 L pulsing we are able to maintain a pulse ox of 93% with activity. Therefore, she qualifies for a POC with activity in this provide her with better portability outside of the home. Patient understands that she needs to quit smoking. She is still smoking about 4 cigarettes a day. She is willing to try the Nicorette gum. She understands that she should not be smoking especially with the oxygen home. In addition to that the patient is interested in participating in the lung cancer screening program. She did have an x-ray back in March demonstrating some evidence of peribronchial cuffing in bronchitis he can also have possibly have some bronchiectasis. The patient will come back in a couple months with PFTs. If she has any issues prior to that she will call for an earlier assessment. Operative should be setting up her oxygen getting her nebulizer. [facility] Medical History (Updated 05/21/24 @ 21:49 by Raymond Garcia MD) Chronic hypoxemic respiratory failure Smoker COPD (chronic obstructive pulmonary disease) Social History Household Members: Family Housing: Apartment Do you presently have visiting nurse or other home services: No Unable to assess alcohol history related to: Unknown Patient Tobacco Use Status: Current everyday Tobacco user Tobacco use type: Cigarette Cigarettes Per Day: 10 Second Hand Smoke Exposure: No service: No Review of Systems Const Denies fever(s) Eyes Reports no additional complaints ENT Reports nasal congestion Card Denies chest pain and Reports dyspnea on exertion Resp Reports chest congestion, Reports cough, Reports dyspnea on exertion and Reports wheezing GI Reports no additional complaints Musc Reports abnormal gait and Reports myalgias Skin/Breast Denies rash Neuro Reports abnormal gait Tomás/Lymph Reports no additional complaints Aller/Immun Reports wheezing Physical Exam Vital Signs: Last Vital Signs Pulse 80 05/21/24 10:22 BP 118/60 05/21/24 10:22 Pulse Ox 94 05/21/24 10:22 Oxygen Delivery Method Room Air 05/21/24 10:22 Const General: comfortable HEENT Head: Yes normocephalic Neck Neck: Yes supple Chest Chest palpation & inspection: normal inspection of the chest Resp Effort & Inspection: normal respiratory effort Auscultation: rhonchi, wheezes and diminished lung sounds Cardio Heart sounds: S1 normal heart sound present and S2 normal heart sound present GI Palpation (GI): Soft to palpation Skin General skin exam: no rashes or lesions noted Extrem General: No cyanosis Office Procedures 6 Minute Walk Time:: 21:57 SPO2 % at rest: 94 Pulse at rest: 89 SPO2 % during excercise: 86 Pulse during excercise: 99 Distance in yards walked: 100 Romie Score: 6 Supplemental Oxygen: desaturated with activity 86%, placed on 2-3L/pulse and maintained pox 93% with acitivity 17523 - 6 Minute Walk Immunizations pneumoc 20-blanche conj-dip cr(PF) 0.5 mL IM syringe Performing Provider: Raymond Garcia MD Performing Location: [facility] Administered by: Marcelle Reece LPN on 05/21/24 11:12 Dose Route Admin Location Dispensed Lot Number Expiration Date [facility] Executive Director 0.5 mL IM Left Deltoid 0.5 mL [id number] 06/05/25 7224-8276-73 [employer] VIS Given Date VIS Provided VIS Publication Date 05/21/24 Single Vaccine 21 Eligibility Eligibility Date Funding Source Not [facility] Eligible 05/21/24 Private Assessment & Plan Assessment & Plan (1) COPD (chronic obstructive pulmonary disease): Code(s): J44.9 - Chronic obstructive pulmonary disease, unspecified Category: Medical Qualifiers: COPD type: chronic bronchitis Chronic bronchitis type: mixed simple and mucopurulent Qualified Code(s): J41.8 - Mixed simple and mucopurulent chronic bronchitis (2) Chronic hypoxemic respiratory failure: Code(s): J96.11 - Chronic respiratory failure with hypoxia Category: Medical (3) Smoker: Code(s): F17.200 - Nicotine dependence, unspecified, uncomplicated Category: Social Hx Plan increase Trelegy 200 daily MITA as needed Needs a nebulizer to continue duoneb BID PFTs LDCT referral tobacco cessation: gum start oxygen supplementatio: POC 3l/pulse with activity, 2l/min while sleeping. The POC will provide better portability and safety outside of the home. F/U 2 months Orders: Orders Pneumococcal 20 Immunization Today F17.200 - Nicotine dependence, unspecified, uncomplicated, J44.9 - Chronic obstructive pulmonary disease, unspecified, Z23 - Encounter for immunization PFT pulmonary function test Today F17.200 - Nicotine dependence, unspecified, uncomplicated, J44.9 - Chronic obstructive pulmonary disease, unspecified Referrals Lung Cancer Screening Referral F17.200 - Nicotine dependence, unspecified, uncomplicated, J44.9 - Chronic obstructive pulmonary disease, unspecified Medications: New nicotine (polacrilex) (Nicorette) 2 mg buccal Q2H 100 ea 2RF 30 days vfhvvvnusze-fsxctkuby-ttaoeivm 200-62.5-25 mcg (Trelegy Ellipta) 1 inh inhalation DAILY 60 ea 12RF 30 days Discontinued prednisone Discontinued Reason: Patient no longer taking 10 mg orally; 5 tabs p.o. daily x3 days; 4 tabs p.o. daily x3 days; 3 tabs daily x3 days; 2 tabs daily x3 days; 1 tab daily x3 days 45 tabs 0RF cefuroxime axetil Discontinued Reason: Patient Completed Course 500 mg PO BID 7 days 14 tabs 0RF Coding Level of Care Code New Pt Level 5 (82492) Diagnoses Mixed simple and mucopurulent chronic bronchitis J41.8 COPD type: chronic bronchitis Chronic bronchitis type: mixed simple and mucopurulent Chronic hypoxemic respiratory failure J96.11 Smoker F17.200 CPT Codes Coding ([id number]) Time Spent (min) 50
[2024-05-21 21:55] VITALS: PULSE 89; O2SAT 94
== END 2024-05-21 11:10 | disposition home or self-care (01) ==
PROVIDERS: PCP Internal Medicine; Visit Provider Hospitalist
DX: Z23 Encounter for immunization (principal); J41.8 Mixed simple and mucopurulent chronic bronchitis; J96.11 Chronic respiratory failure with hypoxia; F17.210 Nicotine dependence, cigarettes, uncomplicated
CPT/HCPCS: 94618; 99204

== ENCOUNTER → 2024-05-21 10:21 | Outpatient (BNVA) | payer MEDICARE, MEDICAID, SELFPAY | PROVIDERS: PCP Internal Medicine; Visit Provider Hospitalist | DX: Z23 Encounter for immunization (principal); J41.8 Mixed simple and mucopurulent chronic bronchitis; J96.11 Chronic respiratory failure with hypoxia; F17.210 Nicotine dependence, cigarettes, uncomplicated | CPT/HCPCS: 90471; 90677; 94618; 99202 ==

== ENCOUNTER 2024-06-26 10:16 | Outpatient (AMB) | payer MEDICARE, MEDICAID, SELFPAY ==
--- NOTE | 2024-06-26 07:43 | A.OFFVIS_ITS ---
Intake Visit Reasons: LDCT Allergies No Known Allergies Allergy (Verified 05/21/24 10:28) HPI HPI LDCT: Details: Initial visit for this 74yo smoker with a 90PYH. Patient started smoking at age 12 for 62 years at 1-2ppd. Recently cut down to 3 cigarets a day - as she is on portable O2. . Denies marijuana use. Denies second hand smoke exposure. Denies exposure to chemicals or substances like asbestos. . Denies known family history of lung cancer. Denies personal history of cancers. Denies chest CT in last year. . Denies recent travel outside the [place]. Denies recent respiratory illness or recent hospitalization for respiratory issues. Denies testing positive for COVID. Admits receiving COVID Vaccine. . Denies fever, chills, new/worsening cough, hemoptysis, hoarseness or dysphagia. Denies significant chest pain, significant dyspnea or unintentional weight loss. Patient Lung Cancer Screening Questionnaire reviewed with patient by provider. . Shared Decision Making Completed. Patient meets criteria. Discussed in detail with patient, the risk vs benefit of LDCT screening. Patient consents to proceed with scan. Discussed smoking cessation. [facility] Medical History (Updated 06/26/24 @ 10:28 by Diamond eDy PA-C) O2 dependent Chronic hypoxemic respiratory failure COPD (chronic obstructive pulmonary disease) Nicotine dependence, cigarettes, uncomplicated Hyperlipidemia Impaired fasting blood sugar (~2023) Osteopenia (~2011) History of hyperplastic polyp of colon (~2008) Surgical History (Updated 06/26/24 @ 10:23 by Diamond Dey PA-C) History of appendectomy History of right salpingo-oophorectomy History of colonoscopy Social History (Updated 06/26/24 @ 10:27 by Diamond Dey PA-C) Household Members: Family Housing: Apartment Do you presently have visiting nurse or other home services: No Unable to assess alcohol history related to: Unknown Patient Tobacco Use Status: Current everyday Tobacco user Tobacco use type: Cigarette Cigarettes Per Day: 3 Years Smoked: (onset 12yo, 1-2ppd x 62yrs, now 3cig/day - 90pyh) Second Hand Smoke Exposure: No service: No Assessment & Plan Assessment & Plan (1) Nicotine dependence, cigarettes, uncomplicated: Comment: (onset 12yo, 1-2ppd x 62yrs, now 3cig/day - 90pyh) Code(s): F17.210 - Nicotine dependence, cigarettes, uncomplicated Category: Medical Plan: - SDM visit completed today in office. - Patient meets criteria for LDCT for lung cancer screening purposes and is asymptomatic. - Smoking cessation counseling offered. Patients can always call [phone]. - Will arrange for a LDCT scan of the chest for screening purposes at [facility]. - Risks, benefits, and alternatives were discussed in detail and the patient agrees to proceed. - Risks discussed include but are not limited to: radiation exposure, anxiety during testing and while awaiting results, false negatives, false positives and possibility of additional intervention such as further imaging or surgical procedures for benign disease. - Benefits are obviously detection of lung cancer at an early stage which can lead to improved outcomes. - Discussed the importance of screening program compliance with adherence to yearly LDCT scan as scheduled - or sooner interval scans for personalized screening regimen. - Discussed follow up plan. Our office will send a letter discussing results and if needed set up phone call and office visit based on CT findings. - Patient educated on results categorization and the management decisions for suspicious findings potentially found on the screening LDCT scan. Any patient with a Lung RADS score of 3 or 4 will be reviewed by a multidisciplinary team at [facility] to form a plan of action in regards to scan findings. - If further work up is warranted for a suspicious lung finding this will be followed by the Lung Cancer Screening program in conjunction with the Thoracic Surgery Department at [facility]. - A copy of the office note and LDCT will be sent to the patient's PCP - as well as documentation on any associated further plans of care. - Incidental findings on LDCT are the PCP's responsibility. These findings are indicated with an S finding on the LDCT Assessment. A note discussing the findings will be sent to the PCP who is then responsible for further management. - All questions answered.? Coding Level of Care Code Lung Cancer Screening G0296 Diagnoses Nicotine dependence, cigarettes, uncomplicated F17.210
== END 2024-06-26 10:39 | disposition home or self-care (01) ==
PROVIDERS: PCP Internal Medicine; Visit Provider Physician Assistant Medical
DX: F17.210 Nicotine dependence, cigarettes, uncomplicated (principal)
CPT/HCPCS: G0296

== ENCOUNTER 2024-06-26 10:26 | Outpatient (REF) | payer MEDICARE, MEDICAID, SELFPAY ==
--- NOTE | ~2024-06-26 | CT_ITS ---
CLINICAL HISTORY: F17.210 - Nicotine dependence, cigarettes, uncomplicated CT lung cancer screening (LDCT) Comparison: CR/SR - XR CHEST 1V - 03/16/24 10:55 EST Technique: Axial CT images of the chest using low-dose technique. Referring provider counseled the patient on shared decision-making for LDCT screening. Additional counseling was provided on smoking cessation. Effective radiation dose total: DLP 44.1 mGycm, CTDIvol 1.4 mGy. Findings: Lung: Spiculated left upper lobe pulmonary nodule measuring 1.8 x 1.0 x 1.0 cm (series 6, image 33). This is suspicious. Elsewhere there are few scattered punctate pulmonary micro nodules measuring less than 6 mm. Mild pleural-parenchymal thickening/scarring at the right lung base. No pleural effusion. No pneumothorax. Coronary artery calcifications: Mild Limited upper abdomen: Unremarkable Other: None Impression: Spiculated left upper lobe pulmonary nodule measuring up to 1.8 cm. This is suspicious. Recommend pulmonology consultation and additional diagnostic testing and/or tissue sampling. LungRADS Category 4X: Suspicious, Additional diagnostics and/or tissue sampling recommended ##[id number]## Category 1: Normal; continue annual screening Category 2: Benign appearance or behavior, continue annual screening Category 3: Probably benign, [address] recommended Category 4A: Suspicious, [address] recommended; may consider PET/CT Category 4B: Suspicious, Additional diagnostics and/or tissue sampling recommended Category 4X: Suspicious, Additional diagnostics and/or tissue sampling recommended Category 0: Recalls (incomplete screen due to Incomplete coverage, Noise, Respiratory motion, Expiration, Obscured by acute abnormality) This document has been electronically signed by: Gladys Arizmendi MD on 06/26/2024 12:11:55
== END 2024-06-26 10:27 | disposition home or self-care (01) ==
LOC: HO.CT 10:26
PROVIDERS: PCP Internal Medicine; Visit Provider Physician Assistant Medical
DX: Z12.2 Encounter for screening for malignant neoplasm of respiratory organs (principal); F17.210 Nicotine dependence, cigarettes, uncomplicated
CPT/HCPCS: 71271; G0296

== ENCOUNTER → 2024-06-26 10:56 | Outpatient (BNV) | payer MEDICARE, MEDICAID, SELFPAY | PROVIDERS: PCP Internal Medicine; Visit Provider Radiology Diagnostic Radiology | DX: F17.210 Nicotine dependence, cigarettes, uncomplicated (principal) | CPT/HCPCS: 71271 ==

== ENCOUNTER 2024-07-08 08:49 | Outpatient (REF) | payer MEDICARE, MEDICAID, SELFPAY ==
--- NOTE | 2024-07-08 08:52 | PFT_ITS ---
Indication: COPD Spirometry [FEV1 to FVC 49%; FEV1 1.04 L; FVC 2.1 L. There was a significant response to bronchodilators noted.] Lung Volumes [Total lung capacity 78% predicted; residual volume 92% predicted] Diffusion Capacity [DLCO 41% predicted] Comparisons [None] Interpretation [There is an obstructive ventilatory defect consistent with moderate to severe COPD. Significant response to bronchodilators noted. Patient also appears to have a mild restrictive ventilatory defect consistent with mild restrictive lung disease. There is also a severe diffusion impairment secondary to the above. Clinical correlation warranted.] MTDD
[2024-07-08 09:31] VITALS: PULSE 78
== END 2024-07-08 08:50 | disposition home or self-care (01) ==
LOC: HO.RESP 08:49
PROVIDERS: PCP Internal Medicine; Visit Provider Hospitalist
DX: J44.9 Chronic obstructive pulmonary disease, unspecified (principal); F17.200 Nicotine dependence, unspecified, uncomplicated
CPT/HCPCS: 94010; 94640; 94727; 94729

== ENCOUNTER → 2024-07-08 08:52 | Outpatient (BNV) | payer MEDICARE, MEDICAID, SELFPAY | PROVIDERS: PCP Internal Medicine; Visit Provider Hospitalist | DX: J44.9 Chronic obstructive pulmonary disease, unspecified (principal) | CPT/HCPCS: 94060; 94727; 94729 ==

== ENCOUNTER 2024-07-13 09:23 | Outpatient (AMB) | payer MEDICARE, MEDICAID, SELFPAY ==
--- NOTE | 2024-07-13 09:28 | MHC.OFFVIS ---
Intake Visit Reasons: Lt upper lobe nodule Intake Note: Patient referred by Diamond Dey PA-C for Lt upper lobe nodule. Reports hx of cigarette smoking since age 12. Patient c/o: cough. On O2 tank. Lung CT: 06-26-2024 LFT: 07-08-2024 Sql Etl Developer Required: No Accompanied by: Mayra varner Allergies No Known Allergies Allergy (Verified 07/13/24 09:31) HPI Comments Details: Patient presents here for evaluation with a friend. She has on surveillance CT scan of chest found to have a left upper lobe spiculated very suspicious lung lesion. Patient has no new respiratory issues or complaints. She was appreciable COPD/emphysema. She is on 2 L of home O2. She has a 60 year history of smoking 1-2 packs per day. She is down through a few cigarettes a day she claims. She denies any new chronic cough, hemoptysis, chest pain. She has occasional wheezing. Her weight, energy, and appetite are stable. Chart was reviewed and patient evaluated. PFT's also evaluated. CT scan and case presentation were reviewed at the weekly thoracic surgical multidisciplinary conference. [facility] Medical History (Updated 06/26/24 @ 10:28 by Diamond Dey PA-C) O2 dependent Hyperlipidemia Impaired fasting blood sugar (~2023) Osteopenia (~2011) History of hyperplastic polyp of colon (~2008) Surgical History (Updated 07/13/24 @ 10:42 by Praveen Bradley MD) Nicotine dependence, cigarettes, uncomplicated Chronic hypoxemic respiratory failure COPD (chronic obstructive pulmonary disease) History of appendectomy History of right salpingo-oophorectomy History of colonoscopy Social History (Updated 06/26/24 @ 10:27 by Diamond Dey PA-C) Household Members: Family Housing: Apartment Do you presently have visiting nurse or other home services: No Unable to assess alcohol history related to: Unknown Patient Tobacco Use Status: Current everyday Tobacco user Tobacco use type: Cigarette Cigarettes Per Day: 3 Years Smoked: (onset 12yo, 1-2ppd x 62yrs, now 3cig/day - 90pyh) Second Hand Smoke Exposure: No service: No Physical Exam Const Other: Patient on 2 L of home/portable O2 Chest Other: Chest breath sounds bilaterally consistent with COPD. GI Other: Abdomen is soft, corpulent, benign Assessment & Plan Assessment & Plan (1) Left upper lobe pulmonary nodule: Comment: (Spiculated ALEXANDRE nodule 1.8 x 1.0 x 1.0 cm - noted on 06/26/24 LDCT) Code(s): R91.1 - Solitary pulmonary nodule Category: Surgical (2) Nicotine dependence, cigarettes, uncomplicated: Comment: (onset 12yo, 1-2ppd x 62yrs, now 3cig/day - 90pyh) Code(s): F17.210 - Nicotine dependence, cigarettes, uncomplicated Category: Surgical (3) COPD (chronic obstructive pulmonary disease): Code(s): J44.9 - Chronic obstructive pulmonary disease, unspecified Category: Surgical Qualifiers: COPD type: chronic bronchitis Chronic bronchitis type: mixed simple and mucopurulent Qualified Code(s): J41.8 - Mixed simple and mucopurulent chronic bronchitis (4) Chronic hypoxemic respiratory failure: Code(s): J96.11 - Chronic respiratory failure with hypoxia Category: Surgical Plan Patient had PET scan at [facility] and final results/readings are unavailable at this office date. Multiple attempts were made but unable to get results yet. I had reviewed with the patient therapeutic options which will be further reviewed once PET scan results are obtained. Because of the lesion location along the right heart border, at the thoracic conference, this was not felt to be amenable to IR biopsy. PET scan will be very helpful to see if this is a hot suspicious nodule as well as for staging. Has general conversation regarding interventions, we discussed possible wedge resection because the patient most probably will not be able tolerated lobectomy or radiation/chemotherapy. We will await the PET scan results indirect further therapy based these studies and she will see me after this. All questions answered. Coding Level of Care Code New Pt Level 4 (71823) Diagnoses Left upper lobe pulmonary nodule R91.1 Nicotine dependence, cigarettes, uncomplicated F17.210 Mixed simple and mucopurulent chronic bronchitis J41.8 COPD type: chronic bronchitis Chronic bronchitis type: mixed simple and mucopurulent Chronic hypoxemic respiratory failure J96.11
--- OUTSIDE RECORDS SUMMARY | 2024-07-13 10:03 | XMS_ITS | Clinical Summary ---
Author Organization [facility] Address [address] [place] [address] Phone Care Team Providers Care Tank House Operator Helper Name Role Phone Fredy Sol MD Primary Care Provider [phone] Encounters Date Type Department Care Team Description 07/10/2024 Telephone Thoracic Surgery - [place] [address] [address] Shane Loving MD new consult 07/09/2024 7:19 AM EST Hospital Encounter [facility] PET Scan [address] [place] [address] Solitary pulmonary nodule from Last 3 Months Surgical History Surgery Date Site/Laterality Comments APPENDECTOMY PROCEDURE: MT APPENDECTOMY Medical History Medical History Date Comments Asthma DX:Asthma Osteoporosis DX:Osteoporosis Osteoarthritis DX:Osteoarthriti s Hyperlipidemia DX:Hyperlipidemi a Social History Tobacco Use Types Packs/Day Years Used Date Smoking Tobacco: Every Day Cigarettes Smokeless Tobacco: Never Alcohol Use Standard Drinks/Week Comments Never 0 (1 standard drink = 0.6 oz pur e alcohol) Comments Unknown Sex and Gender Information Value Date Recorded Sex Assigned at Not on file Legal Sex Female 9:05 AM EST Gender Identity Not on file Sexual Orientation Not on file Obstetrics History Plan of Treatment Health Maintenance Due Date Last Done Comments Breast Cancer Screening 1950 DTaP,Tdap,and Td Vaccines (1 - Tdap) 1969 Zoster Vaccines (1 of 2) 2000 COVID-19 Vaccine ( - 2023-2 5 season) 2024 Colorectal Cancer Screening: Colonoscopy 07/09/2024 Depression Screening 07/09/2024 Falls Risk Assessment 07/09/2024 Hepatitis C Screening 07/09/2024 Osteoporosis Screening (Bone Density Screening) 07/09/2024 Social Influencers of Health Screening 07/09/2024 RSV Immunization Patients 60 + Years Old (1 - 1-dose 75+ series) 2025 Influenza Vaccine Completed 03/17/2024 Pneumococcal Vaccine: 50+ Years Completed HIB Vaccines Aged Out No longer eligi ble based on patient's age to complete this topic HPV Vaccines Aged Out No longer eligi ble based on patient's age to complete this topic Hepatitis A Vaccines Aged Out No long er eligible based on patient's age to complete this topic Hepatitis B Vaccines Aged Out No long er eligible based on patient's age to complete this topic IPV Vaccines Aged Out No longer eligi ble based on patient's age to complete this topic MMR Vaccines Aged Out No longer eligi ble based on patient's age to complete this topic Meningococcal ACWY Vaccine Aged Out N o longer eligible based on patient's age to complete this topic Meningococcal B Vacine Aged Out No lo nger eligible based on patient's age to complete this topic RSV Immunization Patients Un swetha 20 months Aged Out No longer eligible b ased on patient's age to complete this topic Varicella Vaccines Aged Out No longer eligible based on patient's age to complete this topic Care Teams Tank House Operator Helper Relationship Specialty Start Date End Date Fredy Sol MD [address] [place] [id number] PCP - General 02/22/1998
--- OUTSIDE RECORDS SUMMARY | 2024-07-13 10:03 | XMS_ITS | Encounter Summary ---
Author Organization [facility] Address [address] [place] [phone] Care Team Providers Care Crutching Contractor Name Role Phone Fredy Sol MD Primary Care Provider [phone] Reason for Referral * Imaging (Routine) - Pending Review Specialty Diagnoses / Procedures Referred By Contac t Referred To Contact Radiology Diagnoses Solitary pulmonary nodule Procedures PET CT Skull to Mid Thigh Initial Raymond Garcia MD [address] [address] Phone: tel: fax: [facility] Referral ID Status Reason Start Date Expiration Date V isits Requested Visits Authorized [id number] Pending Review 07/08/2024 07/08/2025 1 1 Reason for Visit * Imaging (Routine) - Pending Review Specialty Diagnoses / Procedures Referred By Lina fisher Referred To Contact Radiology Diagnoses Solitary pulmonary nodule Procedures PET CT Skull to Mid Thigh Initial Raymond Garcia MD [address] [address] Phone: tel: fax: [facility] Referral ID Status Reason Start Date Expiration Date V isits Requested Visits Authorized [id number] Pending Review 07/08/2024 07/08/2025 1 1 Encounter Details Date Type Department Care Team (Latest Contact Info) Description 07/09/2024 7:19 AM EST Hospital Encounter [facility] PET Scan [address] [place] [phone] Solitary pulmonary nodule Social History Tobacco Use Types Packs/Day Years [...] on file Sexual Orientation Not on file documented as of this encounter Plan of Treatment Pending Results Name Type Priority Associated Diagnoses Date /Time PET CT Skull to Mid Thigh Initial Imaging Routine Solitary pulmonary nodule 07/09/2024 9:25 AM EST Scheduled Orders Name Type Priority Associated Diagnoses Orde r Schedule PET CT Skull to Mid Thigh Initial Imaging Routine Solitary pulmonary nodule Once for 1 Occurrences starting 07/09/2024 until 07/09/2024 documented as of this encounter Visit Diagnoses Diagnosis Solitary pulmonary nodule documented in this encounter Administered Medications Inactive Administered Medications - up to 3 most recent administrations Medication Order MAR Action Action Date Dose Rate Site F-18 FDG pet diag radio-isotope injection 11.6 millicurie 11.6 millicurie, intravenous, Once in imaging, Starting on Nayeli 07/09/24 at 0815, For 1 dose Given 07/09/2024 8:23 AM EST 11.6 millicuries Left Hand documented in this encounter Orders Medications Ordered That Tomasz ht Not Have Been Administered Count Last Ordered Date First Ordered Date F-18 FDG pet diag radio-isot ope injection 11.6 millicurie 1 07/09/2024 documented in this encounter Care Teams Crutching Contractor Relationship Specialty Start Date End Date Fredy Sol MD [address] [place] [address] PCP - General 02/22/1998 documented as of this encounter
--- OUTSIDE RECORDS SUMMARY | 2024-07-13 10:03 | XMS_ITS | Encounter Summary ---
Author Organization [facility] Address [address] [place] [id number] Care Team Providers Care Locomotive Repairer Diesel Name Role Phone Fredy Sol MD Primary Care Provider [phone] Reason for Visit * Reason Onset Date Comments new consult 07/10/2024 Encounter Details Date Type Department Care Team (Late st Contact Info) Description 07/10/2024 Telephone Thoracic Surgery - [place] [address] [facility] [address] [place] [phone] Shane Loving MD [address] [facility] [address] [place] [address] new consult Social History Tobacco Use Types Packs/Day Years [...] on file documented as of this encounter Progress Notes * Luna Garber - 07/10/2024 2:16 PM EST Spoke to the steel fixer and tried to reach out to patient but she has no voice mail to leave a message. Patient needs a new patient consult. documented in this encounter Plan of Treatment Not on file documented as of this encounter Visit Diagnoses Not on filedocumented in this encounter Care Teams Locomotive Repairer Diesel Relationship Specialty Start Date End Date Fredy Sol MD [address] [place] [address] PCP - General 02/22/1998 documented as of this encounter
== END 2024-07-13 10:10 | disposition home or self-care (01) ==
PROVIDERS: PCP Internal Medicine; Referring Provider Hospitalist; Visit Provider Surgery
DX: R91.1 Solitary pulmonary nodule (principal); F17.210 Nicotine dependence, cigarettes, uncomplicated; J41.8 Mixed simple and mucopurulent chronic bronchitis; J96.11 Chronic respiratory failure with hypoxia
CPT/HCPCS: 99204

== ENCOUNTER → 2024-07-13 09:23 | Outpatient (BNVA) | payer MEDICARE, MEDICAID, SELFPAY | PROVIDERS: PCP Internal Medicine; Referring Provider Hospitalist; Visit Provider Surgery | DX: R91.1 Solitary pulmonary nodule (principal); J41.8 Mixed simple and mucopurulent chronic bronchitis; J96.11 Chronic respiratory failure with hypoxia; F17.210 Nicotine dependence, cigarettes, uncomplicated | CPT/HCPCS: 99202 ==

== ENCOUNTER 2024-07-24 13:41 | Outpatient (AMB) | payer MEDICARE, MEDICAID, SELFPAY ==
[2024-07-24 13:44] VITALS: BP 136/64; PULSE 75; O2SAT 95; BMI 28.2
--- NOTE | 2024-07-24 13:44 | MHC.OFFVIS ---
Vital Signs 07/24/24 13:44 Height 5 ft 4 in Weight 164 lb 3.91 oz BMI 28.2 BP 136/64 Blood Pressure Location Rt brachial Position Sitting Pulse 75 Pulse Source Pulse Oximeter Pulse Oximetry (%) 95 Oxygen Delivery Method Nasal Cannula Oxygen Flow Rate 2 Intake Visit Reasons: Pulmonary Nodule Allergies No Known Allergies Allergy (Verified 07/24/24 13:48) HPI Comments Details: The patient is a 74 year woman with known history tobacco dependency and COPD. The patient has been struggling now for more than a year with worsening shortness of breath. She does have an oximeter in the house and sometimes her oxygen drops to the 70s. She has been trying to get oxygen but is been hard for her to do so. The patient has been on Trelegy inhaler. She also has a nebulizer. Although is very old more than 5 years that she brought from [place]. She has not been able to get any supplies for it. Is no longer working appropriately were not providing enough air pressure. At this point the nebulizer is broken beyond repair will request a replacement. The patient did go for walking oximetry in the office. She did desaturate down to about 86% with activity. We did place her on a portable oxygen concentrator at 3 L pulsing we are able to maintain a pulse ox of 93% with activity. Therefore, she qualifies for a POC with activity in this provide her with better portability outside of the home. Patient understands that she needs to quit smoking. She is still smoking about 4 cigarettes a day. She is willing to try the Nicorette gum. She understands that she should not be smoking especially with the oxygen home. In addition to that the patient is interested in participating in the lung cancer screening program. She did have an x-ray back in March demonstrating some evidence of peribronchial cuffing in bronchitis he can also have possibly have some bronchiectasis. The patient will come back in a couple months with PFTs. If she has any issues prior to that she will call for an earlier assessment. Operative should be setting up her oxygen getting her nebulizer. 07/24/2024 the patient is here for pulmonary follow-up visit. Overall she is doing okay. She continues on the Trelegy inhaler. She continues use her oxygen supplementation with good effect. She has a POC now. In the meantime she is participating in the lung cancer screening program. She had an concerning nodule in the left upper lobe. She underwent a PET scan demonstrating avid nodule concerning for cancer. Therefore she was referred to thoracic surgery and also underwent PFTs. Her PFTs demonstrate moderate to severe COPD. Her DLCO was 40%. I did explain to her that she does have emphysema in the upper lung zones. The patient did undergo a the initial evaluation thoracic surgery and has a plan bronchoscopy for next week. I did encourage her to keep that appointment and then hopefully will get a diagnosis and ultimately surgical resection would be important if this is a malignant process for curative intent. COUNTS INCLUDE 234 BEDS AT THE [facility] Medical History (Updated 06/26/24 @ 10:28 by Diamond Dey PA-C) O2 dependent Hyperlipidemia Impaired fasting blood sugar (~2023) Osteopenia (~2011) History of hyperplastic polyp of colon (~2008) Surgical History (Updated 07/13/24 @ 10:42 by Praveen Bradley MD) Nicotine dependence, cigarettes, uncomplicated Chronic hypoxemic respiratory failure COPD (chronic obstructive pulmonary disease) History of appendectomy History of right salpingo-oophorectomy History of colonoscopy Social History (Updated 06/26/24 @ 10:27 by Diamond Dey PA-C) Household Members: Family Housing: Apartment Do you presently have visiting nurse or other home services: No Unable to assess alcohol history related to: Unknown Patient Tobacco Use Status: Current everyday Tobacco user Tobacco use type: Cigarette Cigarettes Per Day: 3 Years Smoked: (onset 12yo, 1-2ppd x 62yrs, now 3cig/day - 90pyh) Second Hand Smoke Exposure: No service: No Review of Systems Const Denies fever(s) Eyes Reports no additional complaints ENT Reports nasal congestion Card Denies chest pain and Reports dyspnea on exertion Resp Reports chest congestion, Reports cough, Reports dyspnea on exertion and Reports wheezing GI Reports no additional complaints Musc Reports abnormal gait and Reports myalgias Skin/Breast Denies rash Neuro Reports abnormal gait Tomás/Lymph Reports no additional complaints Aller/Immun Reports wheezing Physical Exam Vital Signs: Last Vital Signs Pulse 75 07/24/24 13:44 BP 136/64 07/24/24 13:44 Pulse Ox 95 07/24/24 13:44 Oxygen Delivery Method Nasal Cannula 07/24/24 13:44 Oxygen Flow Rate 2 07/24/24 13:44 BMI result Body Mass Index 28.2 Const General: comfortable HEENT Head: Yes normocephalic Neck Neck: Yes supple Chest Chest palpation & inspection: normal inspection of the chest Resp Effort & Inspection: normal respiratory effort Auscultation: rhonchi, wheezes and diminished lung sounds Cardio Heart sounds: S1 normal heart sound present and S2 normal heart sound present GI Palpation (GI): Soft to palpation Skin General skin exam: no rashes or lesions noted Extrem General: No cyanosis Assessment & Plan Assessment & Plan (1) COPD (chronic obstructive pulmonary disease): Code(s): J44.9 - Chronic obstructive pulmonary disease, unspecified Category: Surgical Qualifiers: COPD type: chronic bronchitis Chronic bronchitis type: mixed simple and mucopurulent Qualified Code(s): J41.8 - Mixed simple and mucopurulent chronic bronchitis (2) Chronic hypoxemic respiratory failure: Code(s): J96.11 - Chronic respiratory failure with hypoxia Category: Surgical (3) Smoker: Code(s): F17.200 - Nicotine dependence, unspecified, uncomplicated Category: Medical (4) Left upper lobe pulmonary nodule: Comment: (Spiculated ALEXANDRE nodule 1.8 x 1.0 x 1.0 cm - noted on 06/26/24 LDCT) Code(s): R91.1 - Solitary pulmonary nodule Category: Surgical Plan continue Trelegy 200 daily MITA as needed duoneb BID F/U with Thoracic surgery, Navigational bronchoscopy and likely resection tobacco cessation: needs to quit Continue oxygen supplementatio: POC 3l/pulse with activity, 2l/min while sleeping. Has POC F/U 3-4 months Coding Level of Care Code Est Pt Level 5 (35721) Diagnoses Mixed simple and mucopurulent chronic bronchitis J41.8 COPD type: chronic bronchitis Chronic bronchitis type: mixed simple and mucopurulent Chronic hypoxemic respiratory failure J96.11 Smoker F17.200 Left upper lobe pulmonary nodule R91.1 Time Spent (min) 45
--- OUTSIDE RECORDS SUMMARY | 2024-07-24 15:59 | XMS_ITS | Encounter Summary ---
Author Organization [facility] Address [address] [place] [address] Care Team Providers Care Community Life Director Name Role Phone Lindsay Nelson MD Primary Care Provider [phone] Reason for Visit * Reason Comments Lung Nodule Encounter Details Date Type Department Care Team ([facility] st Contact Info) Description 07/20/2024 10:00 AM EDT Consult Thoracic Surgery - [place] [address] [facility] [address] [place] [address] Shane Loving MD [address] [facility] [address] [place] [address] Pulmonary nodule (Primary Dx); Chronic obstructive pulmonary disease, unspecified COPD type (CMS/HCC); Neoplasm Social History Tobacco Use Types Packs/Day Years Used Date Smoking Tobacco: Former Cigarettes 1 61 S tarted: 1963 Smokeless Tobacco: Never Tobacco Cessation:Counseling Given: Not Answered Alcohol Use Standard Drinks/Week Comments Never 0 (1 standard drink = 0.6 oz pur e alcohol) Comments Unknown Sex and Gender Information Value Date Recorded Sex Assigned at Female 07/24/2024 8:58 AM EDT Legal Sex Female 9:05 AM EST Gender Identity Female 07/24/2024 8:58 AM EDT Sexual Orientation Straight 07/24/2024 8: 58 AM EDT documented as of this encounter Last Filed Vital Signs Vital Sign Reading Time Taken Comments Blood Pressure 144/58 07/20/2024 10:26 AM EDT Pulse 66 07/20/2024 10:26 AM EDT Temperature 36.7 ??C (98.1 ??F) 07/20/2024 1 0:26 AM EDT Respiratory Rate 18 07/20/2024 10:2 6 AM EDT Oxygen Saturation 97% 07/20/2024 10: 26 AM EDT on 2 lt o2 Inhaled Oxygen Concentration - - Weight 74.1 kg (163 lb 4.8 oz) 07/21/19 10:26 AM EDT Height 160 cm (5' 3 ) 07/20/2024 10:26 AM EDT Body Mass Index 28.93 07/20/2024 10:26 AM EDT documented in this encounter Progress Notes * Shane Loving MD - 07/20/2024 10:57 AM EDTAssociated Problem(s): Pulmonary nodule 74-year-old woman longtime former smoker quit last year with a suspicious chelated pulmonary noduleleft upper lobe clinical stage I lung cancer until proven otherwise. I had a long discussion with the patient and her son about the findings on her CAT scan and PET scan as described in HPI. We also talked about pulmonary nodules in general and how their size, shape, and casino change attendant time affect herlevel of suspicion for malignancy. Next, we talked about the diagnosis, staging, and treatment of lung cancer which they seem to understand. Finally, we talked about the options for pulmonary nodulesin general which are continued observation versus biopsy versus surgical wedge resection possible an atomic resection. Given the highly suspicious appearance of this nodule and her requirement of oxygen already, I do not think observation or surgery are her best options at this point. I did discuss risk benefits of each of these options however ultimately she decided on moving forward with biopsy.Plan then will be for navigational bronchoscopy with biopsy and endobronchial ultrasound in the coming weeks. She will see her primary care for a preoperative visit as this does require general anesthesia. All questions were answered. * Shane Loving MD - 07/20/2024 10:00 AM EDT NEW PATIENT CONSULTATION Name: Ntaalia Spears : 1950 Date of Visit: 07/20/2024 Referring Physician: Raymond Garcia MD Primary Care Physician: Lindsay Nelson MD Chief Complaint Patient presents with Lung Nodule HPI Ms. Spears is a 74 y.o. female who presents for outpatient consultation regarding the management of pulmonary nodule. 74-year-old woman former smoker quit last year but smoked about a pack per day from a young age until then who is currently on 2 L of oxygen at all times. She had a screening CT scan done at [facility] on 06/26/2024 reviewed and interpreted by me directly which shows a 1.8 cm spiculated left upper lobe nodule medially/apically. She then had a PET scan done on 07/09/2024 also reviewed andinterpreted by me directly showing increased PET uptake in the nodule itself SUV max of 3.6 withoutincreased uptake elsewhere in the chest or outside of the chest. There is some mild thyroid uptake and she may need a thyroid ultrasound for that. She is on 2 L of oxygen at all times. She reports feeling generally good health denies unintentional weight loss decreased appetite fevers chills or soaking sweats. She denies chest pain cough or hemoptysis. She actually denies shortness of breath although she is on 2 L of oxygen again at all times. 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 Also checksit at home when she did not have oxygen and it would drop to the 80s. She denies any neurologic symptoms. Past Medical History: Diagnosis Date Asthma DX:Asthma COPD (chronic obstructive pulmonary disease) ([facility]) Hyperlipidemia DX:Hyperlipidemia Osteoarthritis DX:Osteoarthritis Osteoporosis DX:Osteoporosis @ALL@ Current Outpatient Medications Medication Sig Dispense Refill acetaminophen (TYLENOL 8 HOUR) 650 mg 8 hr tablet TOME 1 TABLETA POR V A ORAL EDGAR VECES AL D A CUANDO SEA NECESARIO PARA EL DOLOR albuterol 0.63 mg/3 mL nebulizer solution TAKE 3 ML EVERY 4 TO 6 HOURS FOR 7 DAYS FOR SHORTNESS OF BREATH OR WHEEZING albuterol 2.5 mg /3 mL (0.083 %) nebulizer solution USE WITH NEBULIZER INHALE 1 VIA VIA NEBULIZER TWICE A DAY albuterol HFA (PROAIR HFA ; PROVENTIL HFA ; VENTOLIN HFA) 90 mcg/actuation inhaler TAKE 2 PUFFS EVERY 6 HOURS NEEDED FOR SHORTNESS OF BREATH OR WHEEZING FOR 30 DAYS atorvastatin (LIPITOR) 10 mg tablet TOME 1 TABLETA POR V A ORAL TODOS LOS D AL ACOSTARSE budesonide-formoteroL (SYMBICORT) 160-4.5 mcg/actuation inhaler TAKE 2 PUFFS 2 TIMES A DAY FOR 30 DAYS sertraline (ZOLOFT) 50 mg tablet TOME 1 TABLETA POR V A ORAL TODOS LOS D EN LA LUCY Simon Ellipta 100-62.5-25 mcg inhaler INHALE 1 PUFF POR V A ORAL A DIARIO ProAir RespiClick 90 mcg/actuation aerosol powdr breath activated TOME DOS INHALACIONES POR V A ORAL CADA CUATRO HORAS NEEDED FOR SHORTNESS OF BREATH No current facility-administered medications for this visit. Social History Tobacco Use Smoking status: Former Average packs/day: 1 pack/day for 61.0 years (61.0 ttl pk-yrs) Types: Cigarettes Start date: 1962 Smokeless tobacco: Never Substance Use Topics Alcohol use: Never Drug use: Never Social History Social History Narrative Not on file No family history on file. Review of Systems General - Negative for: weight loss/gain, fatigue, fever, chills, weakness, difficulty sleeping Head - Negative for: headache, trauma Eyes - Negative for: acute vision change, blurred vision, double vision, eye pain, conjunctival erythema, eyelid pain/swelling/erythema Ears - Negative for: acute change in hearing, tinnitus, ear pain, ear drainage Nose - Negative for: nasal discharge, nosebleed, itching, sinus pain Mouth/Throat - Negative for: sore throat, swollen throat, dry mouth, hoarseness, dysphagia, odynophagia, oral lesions Neck - Negative for: pain, stiffness, swelling, mass/lumps, swollen glands Cardiovascular - Negative for: chest pain/pressure, exertional chest pain, palpitations, lightheadedness, dizziness, orthopnea, extremity edema Respiratory -as above Gastrointestinal - Negative for: abdominal pain, abdominal distention, bloating, nausea, vomiting, early satiety, diarrhea, constipation, BRBPR, melena, poor appetite Genitourinary - Negative for: dysuria, hematura, urinary frequency, urinary urgency, incontinence Musculoskeletal - Negative for: muscle or joint pain, stiffness, back pain, joint swelling or erythema Neurologic - Negative for: dizziness, seizures, weakness, numbness, tingling, tremor, dysarthria, facial droop Hematologic - Negative for: easy bruising, easy bleeding, ecchymosis, petechiae Endocrine - Negative for: polyuriua, polydipsia, heat or cold intolerance Lymphatic - Negative for: swollen nodes, unexplained lumps/bumps in neck/axillae/groin Skin - Negative for: rashes, lumps, itching, dryness, color change, hair/nail changes Psychiatric - Negative for: depression, anxiety, nervousness, stress, memory change, SI/HI Physical Exam Vitals: 07/20/24 1026 BP: (!) 144/58 BP Location: Right arm Patient Position: Sitting BP Cuff Size: Large adult long Pulse: 66 Resp: 18 Temp: 36.7 ??C (98.1 ??F) TempSrc: Temporal SpO2: 97% Weight: 74.1 kg (163 lb 4.8 oz) Height: 1.6 m (63 ) General: Patient is sitting comfortably in no acute distress, well developed, well nourished Head: Normocephalic, atraumatic, symmetric Eyes: Sclera anicteric, eyelids without edema or erythema, +EOMS intact ENT: Oral mucosa and tongue are moist without lesions or exudates Neck: Soft, supple, symmetric, trachea midline, no crepitus, no mass visualized or palpated Cardiovascular: Regular rate and rhythm, no murmur/rubs/gallops, BUE and BLE without edema, no calftenderness bilaterally Respiratory: Lungs CTAB, breathing nonlabored, speaking in full sentences, on room air. No use of accessory muscles. No obvious chest wall abnormality or deformity Gastrointestinal: Soft, non-tender, non-distended, +normoactive bowel sounds. Lymphatic: no cervical, supraclavicular, infraclavicular, or other lymphadenopathy noted Neurological: Alert and oriented x 3, neurologic exam is grossly normal Psychiatric: No agitation, appropriate affect Pathology None Micro / Labs Reviewed Radiology Reviewed and interpreted by me directly as above I personally viewed the following imaging studies, in addition to reviewing the dictated report from the reading radiologist Assessment/Plan Problem List Items Addressed This Visit Respiratory Pulmonary nodule - Primary 74-year-old woman longtime former smoker quit last year with a suspicious chelated pulmonary noduleleft upper lobe clinical stage I lung cancer until proven otherwise. I had a long discussion with the patient and her son about the findings on her CAT scan and PET scan as described in HPI. We also talked about pulmonary nodules in general and how their size, shape, and casino change attendant time affect herlevel of suspicion for malignancy. Next, we talked about the diagnosis, staging, and treatment of lung cancer which they seem to understand. Finally, we talked about the options for pulmonary nodulesin general which are continued observation versus biopsy versus surgical wedge resection possible an atomic resection. Given the highly suspicious appearance of this nodule and her requirement of oxygen already, I do not think observation or surgery are her best options at this point. I did discuss risk benefits of each of these options however ultimately she decided on moving forward with biopsy.Plan then will be for navigational bronchoscopy with biopsy and endobronchial ultrasound in the coming weeks. She will see her primary care for a preoperative visit as this does require general anesthesia. All questions were answered. Relevant Medications albuterol HFA (PROAIR HFA ; PROVENTIL HFA ; VENTOLIN HFA) 90 mcg/actuation inhaler albuterol 0.63 mg/3 mL nebulizer solution albuterol 2.5 mg /3 mL (0.083 %) nebulizer solution ProAir RespiClick 90 mcg/actuation aerosol powdr breath activated budesonide-formoteroL (SYMBICORT) 160-4.5 mcg/actuation inhaler Trelegy Ellipta 100-62.5-25 mcg inhaler Other Relevant Orders Case Request Operating Room: Navigational bronchoscopy/EBUS with biopsies (Completed) NPO Instructions Prior to Day of Procedure Basic metabolic panel CBC and differential Prothrombin time with INR Activated partial thromboplastin time Type and screen ECG 12 lead - Procedural (No Charge) COPD (chronic obstructive pulmonary disease) ([facility]) Relevant Medications albuterol HFA (PROAIR HFA ; PROVENTIL HFA ; VENTOLIN HFA) 90 mcg/actuation inhaler albuterol 0.63 mg/3 mL nebulizer solution albuterol 2.5 mg /3 mL (0.083 %) nebulizer solution ProAir RespiClick 90 mcg/actuation aerosol powdr breath activated budesonide-formoteroL (SYMBICORT) 160-4.5 mcg/actuation inhaler Trelegy Ellipta 100-62.5-25 mcg inhaler Other Visit Diagnoses Neoplasm Relevant Orders Prothrombin time with INR Activated partial thromboplastin time Total time spent on date of this encounter: 64 minutes. Reviewing patient's chart, Independently reviewing current/past imaging, Visit with the patient, Counseling and educating patient/family on diagnosis, Discussion of ongoing management, Documenting clinical information in the patient's medical record, and Discussion of surgical intervention and/or biopsy Shane Loving MD on 07/20/2024 at 11:15 AM EDT CC: Raymond Garcia MD Purnima Adlakha, MD documented in this encounter Plan of Treatment Upcoming Encounters Date Type Department Care Team (Latest Contact Info) Description 07/30/2024 12:30 PM EDT Hospital Encounter [facility] [address] [place] [phone] Shane Loving MD [address] [address] 07/30/2024 12:30 PM EDT - 07/30/2024 2:00 PM EDT Surgery [facility] [place] [address] [place] [phone] Shane Loving MD [address] [address] Navigational bronchoscopy/EBUS with biopsies [[id number] (CPT??) +3 more] 08/13/2024 9:15 AM EDT Office Visit Thoracic Surgery - [place] [address] [phone] Shane Loving MD [address] [address] Pending Results Name Type Priority Associated Diagnoses Date /Time ECG 12 lead - Procedural (No Charge) ECG Routine Pulmonary nodule 07/24/2024 9:25 AM EDT Scheduled Procedures Name Priority Associated Diagnoses Date/Ti me BRONCHOSCOPY ELECTROMAGNETIC NAVIGATION Pulmonary nodule 07/30/2024 12:30 PM EDT documented as of this encounter Results * Type and screen (07/24/2024 8:48 AM EDT) ABO Group O 07/24/2024 10:25 AM EDT [facility] Rh Type Positive 07/24/2024 10:25 AM EDT [facility] Antibody Screen Negative 07/24/2024 10:25 AM EDT [facility] Blood Venous blood specimen / Unknown Venipuncture / Unknown 07/24/2024 8:48 AM EDT 07/24/2024 9:34 AM EDT us Shane Loving MD LAB BLOOD BANK TEST ORDERABLES F inal Result Performing Organization Address City/[facility]/ZIP Co de Phone Number [facility] [address] [place] [address], [place] [phone] * Activated partial thromboplastin time (07/24/2024 8:48 AM EDT) aPTT 37.8 24.1 - 39.3 sec LAB COAGULATION METHOD 07/24/2024 10:24 AM EDT [facility] Blood Venous blood specimen / Unknown Venipuncture / Unknown 07/24/2024 8:48 AM EDT 07/24/2024 9:33 AM EDT us Shane Loving MD LAB BLOOD ORDERABLES Final Resul t Performing Organization Address [facility]/ZIP Co de Phone Number [facility] [address] [place] [address], [place] [phone] * Prothrombin time with INR (07/24/2024 8:48 AM EDT) Protime 10.6 10.6 - 13.9 sec LAB COAGULATION METHOD 07/24/2024 10:24 AM EDT [facility] INR 0.8 LAB COAGULATION METHOD 07/24/2024 10:24 AM EDT [facility] Blood Venous blood specimen / Unknown Venipuncture / Unknown 07/24/2024 8:48 AM EDT 07/24/2024 9:33 AM EDT us Shane Loving MD LAB BLOOD ORDERABLES Final Resul t [facility] [address] [place] [address], [place] [phone] * (ABNORMAL) Basic metabolic panel (07/24/2024 8:48 AM EDT) [facility] Sodium 143 133 - 145 mmol/L LAB CHEMISTRY METHOD 07/24/2024 10:06 AM [facility] Potassium 3.9 3.5 - 5.5 mmol/L LAB CHEMISTRY METHOD 07/24/2024 10:06 AM [facility] Chloride 107 96 - 110 mmol/L LAB CHEMISTRY METHOD 07/24/2024 10:06 AM [facility] CO2 31 21 - 32 mmol/L LAB CHEMISTRY METHOD 07/24/2024 10:06 AM [facility] Anion Gap 5 3 - 11 LAB CHEMISTRY METHOD 07/24/2024 10:06 AM [facility] Glucose 102(H) 70 - 100 mg/dL LAB CHEMISTRY METHOD 07/24/2024 10:06 AM [facility] BUN 19 5 - 25 mg/dL LAB CHEMISTRY METHOD 07/24/2024 10:06 AM [facility] Creatinine 0.92 0.50 - 1.10 mg/dL LAB CHEMISTRY METHOD 07/24/2024 10:06 AM [facility] eGFR 65 >=60 mL/min/1. 73m2 LAB CHEMISTRY METHOD 07/24/2024 10:06 AM [facility] Comment:Calculation based on the??Chronic Kidney Disease Epidemiology Collaboration (CKD-EPI) equation refit??without adjustment for race. BUN/Creatinine Ratio 20.7 LAB CHEMISTRY METHOD 07/24/2024 10:06 AM EDT [facility] Calcium 9.6 8.5 - 10.5 mg/dL LAB CHEMISTRY METHOD 07/24/2024 10:06 AM EDT [facility] Blood Venous blood specimen / Unknown Venipuncture / Unknown 07/24/2024 8:48 AM EDT 07/24/2024 9:34 AM EDT us Shane Loving MD LAB BLOOD ORDERABLES Final Resul t [facility] [address] [place] [address], documented in this encounter Visit Diagnoses Diagnosis Pulmonary nodule- Primary Other diseases of lung, not elsewhere classified Chronic obstructive pulmonary disease, unspecified COPD type (CMS/HCC) Neoplasm Neoplasm of unspecified nature, site unspecified Pulmonary nodule- Primary Other diseases of lung, not elsewhere classified Pulmonary nodule Other diseases of lung, not elsewhere classified documented in this encounter Historical Medications * This list may reflect changes made after this encounter. sertraline (ZOLOFT) 50 mg tablet Take 1 tablet (50 mg total) by mouth 1 (one) time each day. 04/23/2024 budesonide-formo teroL (SYMBICORT) 160-4.5 mcg/actuation inhaler 2 puffs 2 (two) times a day. 07/16/2024 atorvastatin (LIPITOR) 10 mg tablet Take 1 tablet (10 mg total) by mouth 1 (one) time each day. 04/23/2024 ProAir RespiClick 90 mcg/actuation aerosol powdr breath activated TOME DOS INHALACIONES POR V A ORAL CADA CUATRO HORAS NEEDED FOR SHORTNESS OF BREATH albuterol 2.5 mg /3 mL (0.083 %) nebulizer solution USE WITH NEBULIZER INHALE 1 VIA VIA NEBULIZER TWICE A DAY 06/08/2024 albuterol 0.63 mg/3 mL nebulizer solution TAKE 3 ML EVERY 4 TO 6 HOURS FOR 7 DAYS FOR SHORTNESS OF BREATH OR WHEEZING 03/07/2024 albuterol HFA (PROAIR HFA ; PROVENTIL HFA ; VENTOLIN HFA) 90 mcg/actuation inhaler TAKE 2 PUFFS EVERY 6 HOURS NEEDED FOR SHORTNESS OF BREATH OR WHEEZING FOR 30 DAYS 07/16/2024 acetaminophen (TYLENOL 8 HOUR) 650 mg 8 hr tablet TOME 1 TABLETA POR V A ORAL EDGAR VECES AL D A CUANDO SEA NECESARIO PARA EL DOLOR 04/23/2024 Trelegy Ellipta 100-62.5-25 mcg inhaler INHALE 1 PUFF POR V A ORAL A DIARIO 04/23/2024 added in this encounter Orders Nursing Count Last Ordered Date First Orde red Date DIET INSTRUCTIONS TO NURSING 1 07/20/2024 Case Request Count Last Ordered Date First Orde red Date CASE REQUEST OPERATING ROOM 1 07/20/2024 documented in this encounter Care Teams Community Life Director Relationship Specialty Start Date End Date Lindsay Nelson MD [address] [place] [address] [place] [address] PCP - General Internal Medicine 07/20/[address] 06/26/24 documented as of this encounter
--- OUTSIDE RECORDS SUMMARY | 2024-07-24 15:59 | XMS_ITS | Encounter Summary ---
Author Organization [facility] Address [address] [place] [address] Care Team Providers Care Ear Nose And Throat Specialist Name Role Phone Lindsay Nelson MD Primary Care Provider [phone] Reason for Visit * Reason Onset Date Comments Procedure 07/21/2024 PCP , PAT , foll ow up no auth needed Encounter Details Date Type Department Care Team ([facility] st Contact Info) Description 07/21/2024 Telephone Thoracic Surgery - [place] [address] [facility] [address] [place] [phone] Shane Loving MD 299 [facility] [address] [place] [address] Procedure (PCP , PAT , follow up no auth needed ) Social History Tobacco Use Types Packs/Day Years Used Date Smoking Tobacco: Former Cigarettes 1 61 S tarted: 1963 Smokeless Tobacco: Never Alcohol Use Standard Drinks/Week Comments Never 0 (1 standard drink = 0.6 oz pur e alcohol) Comments Unknown Sex and Gender Information Value Date Recorded Sex Assigned at Female 07/24/2024 8:58 AM EDT Legal Sex Female 9:05 AM EST Gender Identity Female 07/24/2024 8:58 AM EDT Sexual Orientation Straight 07/24/2024 8: 58 AM EDT documented as of this encounter Progress Notes * Barbara Mayo - 07/21/2024 9:[address] Loving ct- 06/26 its ok to use * Barbara Mayo - 07/21/2024 9:43 AM EDT Patient is schedule for surgery on 07/30/24 at 12:00 pm arrival time 11:00 am PAT: 07/24/24 AT 9:30 AM FOLLOW UP 08/13/24 AT 9:30 AM NO AUTH NEEDED Pcp 07/22/[address]- 06/26 [place] No other testing needed. documented in this encounter Plan of Treatment Upcoming Encounters Date Type Department Care Team (Latest Contact Info) Description 07/30/2024 12:30 PM EDT Hospital Encounter [facility] Main OR [address] [place] [address] Shane Loving MD [address] [address] 07/30/2024 12:30 PM EDT - 07/30/2024 2:00 PM EDT Surgery [facility] Main OR [address] [place] [address] Shane Loving MD [address] [address] Navigational bronchoscopy/EBUS with biopsies [[id number] (CPT??) +3 more] 08/13/2024 9:15 AM EDT Office Visit Thoracic Surgery - [place] [address] [phone] Shane Loving MD [address] [address] Scheduled Procedures Name Priority Associated Diagnoses Date/Ti me BRONCHOSCOPY ELECTROMAGNETIC NAVIGATION Pulmonary nodule 07/30/2024 12:30 PM EDT documented as of this encounter Visit Diagnoses Not on filedocumented in this encounter Care Teams Ear Nose And Throat Specialist Relationship Specialty Start Date End Date Lindsay Nelson MD [address] [place] [address] [place] [address] PCP - General Internal Medicine 07/20/24 ISAURA Dill Physician [employer]ing Mill Operator 06/26/24 documented as of this encounter
--- OUTSIDE RECORDS SUMMARY | 2024-07-24 15:59 | XMS_ITS | Clinical Summary ---
Author Organization [facility] Address [address] [place] [phone] Phone Care Team Providers Care Ice Guard Inspector Name Role Phone Lindsay Nelson MD Primary Care Provider [phone] Allergies No known active allergies Medications acetaminophen (TYLENOL 8 HOUR) 650 mg 8 hr tablet TOME 1 TABLETA POR V A ORAL EDGAR VECES AL D A CUANDO SEA NECESARIO PARA EL DOLOR 4 Active albuterol HFA (PROAIR HFA ; PROVENTIL HFA ; VENTOLIN HFA) 90 mcg/actuation inhaler TAKE 2 PUFFS EVERY 6 HOURS NEEDED FOR SHORTNESS OF BREATH OR WHEEZING FOR 30 DAYS 5 Active albuterol 0.63 mg/3 mL nebulizer solution TAKE 3 ML EVERY 4 TO 6 HOURS FOR 7 DAYS FOR SHORTNESS OF BREATH OR WHEEZING 4 Active albuterol 2.5 mg /3 mL (0.083 %) nebulizer solution USE WITH NEBULIZER INHALE 1 VIA VIA NEBULIZER TWICE A DAY 5 Active ProAir RespiClick 90 mcg/actuation aerosol powdr breath activated TOME DOS INHALACIONES POR V A ORAL CADA CUATRO HORAS NEEDED FOR SHORTNESS OF BREATH Active atorvastatin (LIPITOR) 10 mg tablet Take 1 tablet (10 mg total) by mouth 1 (one) time each day. 4 Active budesonide-for moteroL (SYMBICORT) 160-4.5 mcg/actuation inhaler 2 puffs 2 (two) times a day. 5 Active sertraline (ZOLOFT) 50 mg tablet Take 1 tablet (50 mg total) by mouth 1 (one) time each day. 4 Active ketorolac (ACULAR) 0.5 % ophthalmic solution Administer 1 drop into both eyes 4 (four) times a day. 5 Active Trelegy Ellipta 100-62.5-25 mcg inhaler INHALE 1 PUFF POR V A ORAL A DIARIO 4 025 Discontin ued(Formu filiberto change) Active Problems Problem Noted Date Diagnosed Date Pulmonary nodule 07/20/2024 Assessment & Plan (07/20/2024 10:57 AM EDT): 74-year-old woman longtime former smoker quit last year with a suspicious chelated pulmonary nodule left upper lobe clinical stage I lung cancer until proven otherwise. I had a long discussion with the patient and her son about the findings on her CAT scan and PET scan as described in HPI. We also talked about pulmonary nodules in general and how their size, shape, and guide changer time affect her level of suspicion for malignancy. Next, we talked about the diagnosis, staging, and treatment of lung cancer which they seem to understand. Finally, we talked about the options for pulmonary nodules in general which are continued observation versus biopsy versus surgical wedge resection possible anatomic resection. Given the highly suspicious appearance of this nodule and her requirement of oxygen already, I do not think observation or surgery are her best options at this point. I did discuss risk benefits of each of these options however ultimately she decided on moving forward with biopsy. Plan then will be for navigational bronchoscopy with biopsy and endobronchial ultrasound in the coming weeks. She will see her primary care for a preoperative visit as this does require general anesthesia. All questions were answered. COPD (chronic obstructive pulmonary disease) Encounters Date Type Department Care Team Description 07/21/2024 Telephone Thoracic Surgery - [address] [place] [phone] Shane Loving MD Procedure (PCP , PAT , follow up no auth needed ) 07/20/2024 10:00 AM EDT Consult Thoracic Surgery - [address] [phone] Shane Loving MD Pulmonary nodule (Primary Dx); Chronic obstructive pulmonary disease, unspecified COPD type (CMS/HCC); Neoplasm 07/10/2024 Telephone Thoracic Surgery - [place] [address] [facility] [address] [place] [address] Shane Loving MD new consult 07/09/2024 7:19 AM EST - 07/09/2024 11:59 PM EST Hospital Encounter [facility] PET Scan [address] [place] [address] Solitary pulmonary nodule Discharge Disposition: Home or Self Care from Last 3 Months Surgical History Surgery Date Site/Laterality Comments APPENDECTOMY PROCEDURE: SD APPENDECTOMY OTHER SURGICAL HISTORY EYE SURGERY CATARACT EXTRACTION HYSTERECTOMY Medical History Medical History Date Comments Asthma DX:Asthma Osteoporosis DX:Osteoporosis Osteoarthritis DX:Osteoarthriti s Hyperlipidemia DX:Hyperlipidemi a COPD (chronic obstructive pulmonary disease) (CM S/HCC) Pulmonary nodule Joint pain Social History Tobacco Use Types Packs/Day Years [...] Orientation Straight 07/24/2024 8: 58 AM EDT Obstetrics History Last Filed Vital Signs Vital Sign Reading Time Taken Comments Blood Pressure 144/58 07/20/2024 10:26 AM EDT Pulse 66 07/20/2024 10:26 AM EDT Temperature 36.7 ??C (98.1 ??F) 07/20/2024 10:26 AM E DT Respiratory Rate 18 07/20/2024 10:26 AM EDT Oxygen Saturation 97% 07/20/2024 10:26 AM EDT on 2 lt o2 Inhaled Oxygen Concentration - - Weight 73.9 kg (163 lb) 07/21/2024 3:00 PM EDT Height 157.5 cm (5' 2 ) 07/21/2024 3:00 PM EDT Body Mass Index 29.81 07/21/2024 3:00 PM EDT Plan of Treatment Upcoming Encounters Date Type Department Care Team (Latest Contact Info) Description 07/30/2024 12:30 PM EDT Hospital Encounter [facility] Main OR [address] [place] [phone] Shane Loving MD [address] [address] 07/30/2024 12:30 PM EDT - 07/30/2024 2:[address] [facility] Main OR [address] [place] [phone] Shane Loving MD [address] [address] Navigational bronchoscopy/EBUS with biopsies [63990 (CPT??) +3 more] 08/13/2024 9:15 AM EDT Office Visit Thoracic Surgery - [place] [address] [phone] Shane Loving MD [address] [address] Scheduled Procedures Name Priority Associated Diagnoses Date/Ti me BRONCHOSCOPY ELECTROMAGNETIC NAVIGATION Pulmonary nodule 07/30/2024 12:30 PM EDT Health Maintenance Due Date Last Done Comments Breast Cancer Screening 1950 DTaP,Tdap,and Td Vaccines (1 - Tdap) 1969 Zoster Vaccines (1 of 2) 2000 RSV Immunization Patients 60 + Years Old (1 - Risk 60-74 years 1-dose series) 2010 COVID-19 Vaccine (1 - 2023-2 5 season) 2024 Colorectal Cancer Screening: Colonoscopy 07/09/2024 Depression Screening 07/09/2024 Falls Risk Assessment 07/09/2024 Hepatitis C Screening 07/09/2024 Medicare Annual Wellness Visit 07/09/2024 Osteoporosis Screening (Bone Density Screening) 07/09/2024 Social Influencers of Health Screening 07/09/2024 Influenza Vaccine Completed 03/17/2024 Pneumococcal Vaccine: 50+ [...] on patient's age to complete this topic Procedures Procedure Name Priority Date/Time Associated Diagnosis Comments PROCEDURAL ECG Routine 07/24/2024 9:25 AM EDT Pulmonary nodule CBC WITH AUTO DIFFERENTIAL Routine 07/24/2024 8:48 AM EDT Pulmonary nodule TYPE AND SCREEN Routine 07/24/2024 8:48 AM EDT Pulmonary nodule ACTIVATED PARTIAL THROMBOPLASTIN TIME Routine 07/24/2024 8:48 AM EDT Pulmonary nodule Neoplasm PROTHROMBIN TIME WITH INR Routine 07/24/2024 8:48 AM EDT Pulmonary nodule Neoplasm CBC AND DIFFERENTIAL Routine 07/24/2024 8:48 AM EDT Pulmonary nodule BASIC METABOLIC PANEL Routine 07/24/2024 8:48 AM EDT Pulmonary nodule PET CT SKULL TO MID THIGH INITIAL Routine 07/09/2024 9:25 AM EST Solitary pulmonary nodule from Last 3 Months Results * (ABNORMAL) CBC auto differential (07/24/2024 8:48 AM EDT) WBC 5.8 4.8 - 10.8 K[facility] 07/24/2024 9:38 AM [facility] RBC 3.90 3.80 - 4.80 M/mcL LAB HEMETOLOGY METHOD 07/24/2024 9:38 AM [facility] Hemoglobin 10.4(L) 11.5 - 16.0 g/dL LAB HEMETOLOGY METHOD 07/24/2024 9:38 AM [facility] Hematocrit 34.4(L) 35.0 - 47.0 % LAB HEMETOLOGY METHOD 07/24/2024 9:38 AM [facility] MCV 88.7 79.0 - 98.0 FL LAB HEMETOLOGY METHOD 07/24/2024 9:38 AM [facility] MCH 26.8(L) 27.0 - 32.0 pcg LAB HEMETOLOGY METHOD 07/24/2024 9:38 AM [facility] MCHC 30.2(L) 32.0 - 37.0 g/dL LAB HEMETOLOGY METHOD 07/24/2024 9:38 AM [facility] RDW 17.6(H) 11.0 - 15.0 % LAB HEMETOLOGY METHOD 07/24/2024 9:38 AM [facility] Platelets 359 130 - 400 K/mcL LAB HEMETOLOGY METHOD 07/24/2024 9:38 AM [facility] MPV 10.3 7.0 - 11.0 FL LAB HEMETOLOGY METHOD 07/24/2024 9:38 AM [facility] NRBC 0.0 <1.0 % LAB HEMETOLOGY METHOD 07/24/2024 9:38 AM [facility] NRBC Absolute 0.00 <0.10 K/mcL LAB HEMETOLOGY METHOD 07/24/2024 9:38 AM [facility] Neutrophils Relative 62.7 % LAB HEMETOLOGY METHOD 07/24/2024 9:38 AM [facility] Lymphocytes Relative 27.8 % LAB HEMETOLOGY METHOD 07/24/2024 9:38 AM [facility] Monocytes Relative 7.5 % LAB HEMETOLOGY METHOD 07/24/2024 9:38 AM [facility] Eosinophils Relative 1.6 % LAB HEMETOLOGY METHOD 07/24/2024 9:38 AM [facility] Basophils Relative 0.2 % LAB HEMETOLOGY METHOD 07/24/2024 9:38 AM [facility] Immature Granulocytes Relative 0.2 % LAB HEMETOLOGY METHOD 07/24/2024 9:38 AM [facility] Neutrophils Absolute 3.62 1.50 - 7.00 K/mcL LAB HEMETOLOGY METHOD 07/24/2024 9:38 AM [facility] Lymphocytes Absolute 1.60 1.00 - 5.00 K/mcL LAB HEMETOLOGY METHOD 07/24/2024 9:38 AM [facility] Monocytes Absolute 0.43 0.20 - 1.00 K/mcL LAB HEMETOLOGY METHOD 07/24/2024 9:38 AM [facility] Eosinophils Absolute 0.09 0.00 - 0.50 K/mcL LAB HEMETOLOGY METHOD 07/24/2024 9:38 AM [facility] Basophils Absolute 0.01 0.00 - 0.20 K/mcL LAB HEMETOLOGY METHOD 07/24/2024 9:38 AM [facility] Immature Granulocytes Absolute 0.01 0.00 - 0.03 K/mcL LAB HEMETOLOGY METHOD 07/24/2024 9:38 AM [facility] Blood Venous blood specimen / Unknown Venipuncture / Unknown 07/24/2024 8:48 AM EDT 07/24/2024 9:34 AM EDT us Shane Loving MD LAB BLOOD ORDERABLES Final Resul t Performing Organization Address City/[facility]/ZIP Co de Phone Number [facility] [address] [place] [address], [place] [phone] * Activated partial thromboplastin time (07/24/2024 8:48 AM EDT) aPTT 37.8 24.1 - 39.3 sec LAB COAGULATION METHOD 07/24/2024 10:24 AM EDT [facility] Blood Venous blood specimen / Unknown Venipuncture / Unknown 07/24/2024 8:48 AM EDT 07/24/2024 9:33 AM EDT us Shane Loving MD LAB BLOOD ORDERABLES Final Resul t Performing Organization Address [facility] Co de Phone Number [facility] [address] [place] [address], [place] [phone] * Prothrombin time with INR (07/24/2024 8:48 AM EDT) [facility] Protime 10.6 10.6 - 13.9 sec LAB COAGULATION METHOD 07/24/2024 10:24 AM EDT [facility] INR 0.8 LAB COAGULATION METHOD 07/24/2024 10:24 AM EDT [facility] Blood Venous blood specimen / Unknown Venipuncture / Unknown 07/24/2024 8:48 AM EDT 07/24/2024 9:33 AM EDT us Shane Loving MD LAB BLOOD ORDERABLES Final Resul t Performing Organization Address [facility]/ZIP Co de Phone Number [facility] [address] [place] [address], [place] [phone] * Type and screen (07/24/2024 8:48 AM EDT) ABO Group O 07/24/2024 10:25 AM EDT [facility] Rh Type Positive 07/24/2024 10:25 AM EDT [facility] Antibody Screen Negative 07/24/2024 10:25 AM T [facility] Blood Venous blood specimen / Unknown Venipuncture / Unknown 07/24/2024 8:48 AM EDT 07/24/2024 9:34 AM EDT us Shane Loving MD LAB BLOOD BANK TEST ORDERABLES F inal Result [facility] [address] [place] [address], * (ABNORMAL) Basic metabolic panel (07/24/2024 8:48 AM EDT) Pathologist [facility] Sodium 143 133 - 145 mmol/L LAB CHEMISTRY METHOD 07/24/2024 10:06 AM [facility] Potassium 3.9 3.5 - 5.5 mmol/L LAB CHEMISTRY METHOD 07/24/2024 10:06 AM [facility] Chloride 107 96 - 110 mmol/L LAB CHEMISTRY METHOD 07/24/2024 10:06 AM [facility] CO2 31 21 - 32 mmol/L LAB CHEMISTRY METHOD 07/24/2024 10:06 AM [facility] Anion Gap 5 3 - 11 LAB CHEMISTRY METHOD 07/24/2024 10:06 AM [facility] Glucose 102(H) 70 - 100 mg/dL LAB CHEMISTRY METHOD 07/24/2024 10:06 AM [facility] BUN 19 5 - 25 mg/dL LAB CHEMISTRY METHOD 07/24/2024 10:06 AM [facility] Creatinine 0.92 0.50 - 1.10 mg/dL LAB CHEMISTRY METHOD 07/24/2024 10:06 AM EDT [facility] eGFR 65 >=60 mL/min/1. 73m2 LAB CHEMISTRY METHOD 07/24/2024 10:06 AM EDT [facility] Comment:Calculation based on the??Chronic Kidney Disease Epidemiology Collaboration (CKD-EPI) equation refit??without adjustment for race. BUN/Creatinine Ratio 20.7 LAB CHEMISTRY METHOD 07/24/2024 10:06 AM EDT [facility] Calcium 9.6 8.5 - 10.5 mg/dL LAB CHEMISTRY METHOD 07/24/2024 10:06 AM EDT [facility] Blood Venous blood specimen / Unknown Venipuncture / Unknown 07/24/2024 8:48 AM EDT 07/24/2024 9:34 AM EDT us Shane Loving MD LAB BLOOD ORDERABLES Final Resul t [facility] [address] [place] [address], * PET CT Skull to Mid Thigh Initial (07/09/2024 9:25 AM EST) Anatomical Region Laterality Modality Body Radiographic Malina ging 07/14/2024 3:53 AM EDT Impressions 07/14/2024 5:27 AM EDT 1. ??FDG avid left upper lobe pulmonary nodule suspicious for lung neoplasm 2. ??No significant FDG avid lymphadenopathy or osseous involvement 3. ??FDG avid left thyroid nodule. ??Correlation with thyroid ultrasound is recommended. Please note: The CT was acquired at a low radiation dose settings. ??The images are of nondiagnostic quality and used solely for purposes of attenuation correction and slice localization for the PET scan. ??If a diagnostic CT study is desired it must be ordered separately. -------- FINAL REPORT -------- Dictated By: Lyla Jackson Dictated Date: 07/14/2024 03:53 ET Assigned Physician: Lyla Jackson Reviewed and Electronically Signed By: Lyla Jackson Signed Date: 07/14/2024 05:27 ET Workstation ID: [id number] Transcribed By: Self Edit Transcribed Date: 07/14/2024 04:17 ET Narrative 07/14/2024 5:27 AM EDT INDICATION: Spiculated left upper lobe pulmonary nodule seen on prior outside chest CT. TECHNIQUE: FDG PET-CT imaging was performed from the skull bases through the thighs in a single acquisition with data set reconstructed in axial, coronal, and sagittal planes at the computer workstation with fused data from both the PET imaging study and attenuation correction CT. The CT portion of the examination was done strictly for attenuation correction and is not a true diagnostic CT examination. DLP: ??549 mGy-cm Radiopharmaceutical: 11.6 mCi of F-18 FDG IV. Blood glucose: 109 mg/dl. COMPARISON: Correlation is made with outside chest CT June 2024. FINDINGS: HEAD AND NECK: 15 mm low-attenuation nodule in the left thyroid lobe SUV max 3.3. THORAX: 10 mm pulmonary nodule left upper lobe SUV max 3.6. ??Other smaller sub- 5 mm pulmonary nodules do not demonstrate significant FDG activity due to small size. ??Atelectasis in the lower lobes. Nonenlarged mediastinal lymph nodes without significant FDG activity compared to mediastinal blood pool. ??For example subcarinal SUV max 2.2, right paratracheal SUV max 1.2, prevascular SUV Max 1.1 (mediastinal blood pool SUV Max 2.7). ??No significant hilar or axillary activity. Thoracic aortic and mild coronary artery calcifications. ABDOMEN/PELVIS: No abnormal FDG activity. Diverticulosis. ??Low-attenuation lesion in the left ovary likely representing a cyst without significant FDG activity SUV max 1.0. MUSCULOSKELETAL: No abnormal FDG activity. ??Degenerative changes. Procedure Note Lyla Jackson MD - 07/14/2024 INDICATION: Spiculated left upper lobe pulmonary nodule seen on prioroutside chest CT. TECHNIQUE: FDG PET-CT imaging was performed from the skull bases throughthe thighs in a single acquisition with data set reconstructed in axial,coronal, and sagittal planes at the computer workstation with fused datafrom both the PET imaging study and attenuation correction CT. The CTportion of the examination was done strictly for attenuation correctionand is not a true diagnostic CT examination. DLP: 549 mGy-cm Radiopharmaceutical: 11.6 mCi of F-18 FDG IV. Blood glucose: 109 mg/dl. COMPARISON: Correlation is made with outside chest CT June 2024. FINDINGS: HEAD AND NECK: 15 mm low-attenuation nodule in the left thyroid lobe SUVmax 3.3. THORAX: 10 mm pulmonary nodule left upper lobe SUV max 3.6. Other smallersub-5 mm pulmonary nodules do not demonstrate significant FDG activity dueto small size. Atelectasis in the lower lobes. Nonenlarged mediastinal lymph nodes without significant FDG activitycompared to mediastinal blood pool. For example subcarinal SUV max 2.2,right paratracheal SUV max 1.2, prevascular SUV Max 1.1 (mediastinal bloodpool SUV Max 2.7). No significant hilar or axillary activity. Thoracic aortic and mild coronary artery calcifications. ABDOMEN/PELVIS: No abnormal FDG activity. Diverticulosis. Low-attenuation lesion in the left ovary likelyrepresenting a cyst without significant FDG activity SUV max 1.0. MUSCULOSKELETAL: No abnormal FDG activity. Degenerative changes. IMPRESSION: 1. FDG avid left upper lobe pulmonary nodule suspicious for lungneoplasm 2. No significant FDG avid lymphadenopathy or osseous involvement 3. FDG avid left thyroid nodule. Correlation with thyroid ultrasound isrecommended. Please note: The CT was acquired at a low radiation dose settings. The images are ofnondiagnostic quality and used solely for purposes of attenuationcorrection and slice localization for the PET scan. If a diagnostic CTstudy is desired it must be ordered separately. -------- FINAL REPORT -------- Dictated By: Lyla Jackson Dictated Date: 07/14/2024 03:53 ET Assigned Physician: Lyla Jackson Reviewed and Electronically Signed By: Lyla Jackson Signed Date: 07/14/2024 05:27 ET Workstation ID: [id number] Transcribed By: Self Edit Transcribed Date: 07/14/2024 04:17 ET us Raymond Garcia MD IMG NM PROCEDURES Final Re sult from Last 3 Months [place] [facility] [id number] MEDICARE MEDICAID - [place] Care Teams Ice Guard Inspector Relationship Specialty Start Date End Date Lindsay Nelson MD [address] [place] [address] [place] [id number] PCP - General Internal Medicine 07/20/24 ISAURA Dill Physician [employer] Installer 06/26/24
--- OUTSIDE RECORDS SUMMARY | 2024-07-24 15:59 | XMS_ITS | Encounter Summary ---
Author Organization [facility] [address] Address [address] [place] [phone] Care Team Providers Care Mental Health Program Manager Name Role Phone Fredy Sol MD Primary Care Provider Reason for Referral * Imaging (Routine) - Closed Specialty Diagnoses / Procedures Referred By Lina fisher Referred To Contact Radiology Diagnoses Solitary pulmonary nodule Procedures PET CT Skull to Mid Thigh Initial Raymond Garcia MD 175 [facility] [address] [place] [address] Phone: tel: fax: [facility] Referral ID Status Reason Start Date Expiration Date Visits Re quested Visits Authorized [id number] Closed 07/08/2024 07/08/2025 1 1 Reason for Visit * Imaging (Routine) - Closed Specialty Diagnoses / Procedures Referred By Lina fisher Referred To Contact Radiology Diagnoses Solitary pulmonary nodule Procedures PET CT Skull to Mid Thigh Initial Raymond Garcia MD 175 [facility] [address] [place] [address] Phone: tel: fax: [facility] Referral ID Status Reason Start Date Expiration Date Visits Re quested Visits Authorized [id number] Closed 07/08/2024 07/08/2025 1 1 Encounter Details Date Type Department Care Team (Latest Contact Info) Description 07/09/2024 7:19 AM EST - 07/09/2024 11:59 PM EST Hospital Encounter [facility] PET Scan [address] [place] [phone] Solitary pulmonary nodule Discharge Disposition: Home or Self Care Social History Tobacco Use Types Packs/Day Years [...] AM EDT documented as of this encounter Medications at Time of Discharge acetaminophen (TYLENOL 8 HOUR) 650 mg 8 hr tablet TOME 1 TABLETA POR V A ORAL EDGAR VECES AL D A CUANDO SEA NECESARIO PARA EL DOLOR 04/23/2024 albuterol 0.63 mg/3 mL nebulizer solution TAKE 3 ML EVERY 4 TO 6 HOURS FOR 7 DAYS FOR SHORTNESS OF BREATH OR WHEEZING 03/07/2024 albuterol 2.5 mg /3 mL (0.083 %) nebulizer solution USE WITH NEBULIZER INHALE 1 VIA VIA NEBULIZER TWICE A DAY 06/08/2024 atorvastatin (LIPITOR) 10 mg tablet Take 1 tablet (10 mg total) by mouth 1 (one) time each day. 04/23/2024 ketorolac (ACULAR) 0.5 % ophthalmic solution Administer 1 drop into both eyes 4 (four) times a day. 06/25/2024 sertraline (ZOLOFT) 50 mg tablet Take 1 tablet (50 mg total) by mouth 1 (one) time each day. 04/23/2024 Trelegy Ellipta 100-62.5-25 mcg inhaler INHALE 1 PUFF POR V A ORAL A DIARIO 04/23/2024 documented as of this encounter Discharge Disposition Disposition Code Departure Means Destination Home or Self Care documented in this encounter Plan of Treatment Upcoming Encounters Date Type Department Care Team (Latest Contact Info) Description 07/30/2024 12:30 PM EDT Hospital Encounter [facility] Main OR [address] [place] [phone] Shane Loving MD [address] [address] 07/30/2024 12:30 PM EDT - 07/30/2024 2:00 PM EDT Surgery [facility] Main OR [address] [place] [phone] Shane Loving MD 299 [facility] [place] [address] [place] [phone] Navigational bronchoscopy/EBUS with biopsies [[address] (CPT??) +3 more] 08/13/2024 9:15 AM EDT Office Visit Thoracic Surgery - [place] [address] [phone] Shane Loving MD [address] [address] Scheduled Procedures Name Priority Associated Diagnoses Date/Ti me BRONCHOSCOPY ELECTROMAGNETIC NAVIGATION Pulmonary nodule 07/30/2024 12:30 PM EDT documented as of this encounter Procedures Procedure Name Priority Date/Time Associated Diagnosis Comments PET CT SKULL TO MID THIGH INITIAL Routine 07/09/2024 9:25 AM EST Solitary pulmonary nodule documented in this encounter Results * PET CT Skull to Mid Thigh [...] Signed Date: 07/14/2024 05:27 ET Workstation ID: [id number] Transcribed By: Self Edit Transcribed Date: 07/14/2024 [...] Signed Date: 07/14/2024 05:27 ET Workstation ID: [id number] Transcribed By: Self Edit Transcribed Date: 07/14/2024 04:17 ET us Raymond Garcia MD IMG NM PROCEDURES Final Re sult documented in this encounter Visit Diagnoses Diagnosis Solitary pulmonary nodule Pulmonary nodule Other diseases of lung, not elsewhere classified documented in this encounter Administered Medications Inactive [...] 07/09/2024 documented in this encounter Care Teams Mental Health Program Manager Relationship Specialty Start Date End Date Fredy Sol MD [address] [place] [address] PCP - General 02/22/1998 07/19/24 ISAURA Dill Physician Catering Cook 06/26/24 documented as of this encounter
--- OUTSIDE RECORDS SUMMARY | 2024-07-24 15:59 | XMS_ITS | Encounter Summary ---
Author Organization [facility] Address [address] [place] [address] Care Team Providers Care Parasitology Teacher Name Role Phone Fredy Sol MD Primary Care Provider [phone] Reason for Visit * Reason Onset Date Comments new consult 07/10/2024 Encounter Details Date Type Department Care Team (Late st Contact Info) Description 07/10/2024 Telephone Thoracic Surgery - [place] [address] [facility] [address] [place] [phone] Shane Loving MD [address] [facility] [address] [place] [address] new consult Social History Tobacco Use Types [...] 07/10/2024 2:16 PM EST Spoke to the master cook and tried to reach out to patient but she has no voice mail to leave a message. Patient needs a new patient consult. documented in this encounter Plan of Treatment Upcoming Encounters Date Type Department Care Team (Latest Contact Info) Description 07/30/2024 12:30 PM EDT Hospital Encounter [facility] [address] [place] [phone] Shane Loving MD [address] [address] 07/30/2024 12:30 PM EDT - 07/30/2024 2:[address] [facility] [place] [address] [place] [phone] Shane Loving MD [address] [address] Navigational bronchoscopy/EBUS with biopsies [[id number] (CPT??) +3 more] 08/13/2024 9:15 AM EDT Office Visit Thoracic Surgery - [place] [address] [phone] Shane Loving MD [address] [address] Scheduled Procedures Name Priority Associated Diagnoses Date/Ti me BRONCHOSCOPY ELECTROMAGNETIC NAVIGATION Pulmonary nodule 07/30/2024 12:30 PM EDT documented as of this encounter Visit Diagnoses Not on filedocumented in this encounter Care Teams Parasitology Teacher Relationship Specialty Start Date End Date Fredy Sol MD [address] [place] [address] PCP - General 02/22/1998 07/19/24 ISAURA Dill Physician Color Control Supervisor 06/26/24 documented as of this encounter
== END 2024-07-24 14:09 | disposition home or self-care (01) ==
LOC: HO.HPS 13:42
PROVIDERS: PCP Internal Medicine; Visit Provider Hospitalist
DX: R91.1 Solitary pulmonary nodule (principal); J41.8 Mixed simple and mucopurulent chronic bronchitis; J96.11 Chronic respiratory failure with hypoxia; F17.210 Nicotine dependence, cigarettes, uncomplicated
CPT/HCPCS: 99215

== ENCOUNTER → 2024-07-24 13:41 | Outpatient (BNVA) | payer MEDICARE, MEDICAID, SELFPAY | PROVIDERS: PCP Internal Medicine; Visit Provider Hospitalist | DX: R91.1 Solitary pulmonary nodule (principal); J41.8 Mixed simple and mucopurulent chronic bronchitis; J96.11 Chronic respiratory failure with hypoxia; F17.210 Nicotine dependence, cigarettes, uncomplicated | CPT/HCPCS: 99212 ==

== ENCOUNTER 2024-10-07 08:57 | Outpatient (AMB) | payer MEDICARE, MEDICAID, SELFPAY ==
--- NOTE | 2024-10-07 09:00 | A.OFFVIS_ITS ---
Vital Signs 10/07/24 09:02 Height 5 ft 4 in Weight 163 lb 2.273 oz BMI 28.0 BP 120/30 L Blood Pressure Location Lt brachial Position Sitting Pulse 82 Pulse Source Pulse Oximeter Pulse Oximetry (%) 97 Oxygen Delivery Method Nasal Cannula Oxygen Flow Rate 2 Intake Visit Reasons: COPD Allergies No Known Allergies Allergy (Verified 10/07/24 09:03) HPI Comments Details: The patient is a 74 year woman with known history tobacco dependency and COPD. The patient has been struggling now for more than a year with worsening shortness of breath. She does have an oximeter in the house and sometimes her oxygen drops to the 70s. She has been trying to get oxygen but is been hard for her to do so. The patient has been on Trelegy inhaler. She also has a nebulizer. Although is very old more than 5 years that she brought from [place]. She has not been able to get any supplies for it. Is no longer working appropriately were not providing enough air pressure. At this point the nebulizer is broken beyond repair will request a replacement. The patient did go for walking oximetry in the office. She did desaturate down to about 86% with activity. We did place her on a portable oxygen concentrator at 3 L pulsing we are able to maintain a pulse ox of 93% with activity. Therefore, she qualifies for a POC with activity in this provide her with better portability outside of the home. Patient understands that she needs to quit smoking. She is still smoking about 4 cigarettes a day. She is willing to try the Nicorette gum. She understands that she should not be smoking especially with the oxygen home. In addition to that the patient is interested in participating in the [facility] cancer screening program. She did have an x-ray back in March demonstrating some evidence of peribronchial cuffing in bronchitis he can also have possibly have some bronchiectasis. The patient will come back in a couple months with PFTs. If she has any issues prior to that she will call for an earlier assessment. Operative should be setting up her oxygen getting her nebulizer. 07/24/2024 the patient is here for pulmonary follow-up visit. Overall she is doing okay. She continues on the Trelegy inhaler. She continues use her oxygen supplementation with good effect. She has a POC now. In the meantime she is participating in the lung cancer screening program. She had an concerning nodule in the left upper lobe. She underwent a PET scan demonstrating avid nodule concerning for cancer. Therefore she was referred to thoracic surgery and also underwent PFTs. Her PFTs demonstrate moderate to severe COPD. Her DLCO was 40%. I did explain to her that she does have emphysema in the upper lung zones. The patient did undergo a the initial evaluation thoracic surgery and has a plan bronchoscopy for next week. I did encourage her to keep that appointment and then hopefully will get a diagnosis and ultimately surgical resection would be important if this is a malignant process for curative intent. 10/07/2024 the patient is here for pulmonary follow-up visit. Overall she is doing okay. Unfortunately she continues to smoke cigarettes. She is using her oxygen with good effect. She did follow-up with thoracic surgery and is planned to undergo a repeat bronchoscopy likely robotic bronchoscopy at [facility] and likely will have a biopsy. Based on the biopsy then further intervention will be discussed. For now she needs to work on the smoking. I did offer her Chantix. She is going to try to quit cold turkey. She continues her respiratory therapy as prescribed. Therefore will continue with current regimen continue the oxygen will follow-up with the biopsy results from interventional pulmonary. [facility] Medical History (Updated 06/26/24 @ 10:28 by Diamond Dey PA-C) O2 dependent Hyperlipidemia Impaired fasting blood sugar (~2023) Osteopenia (~2011) History of hyperplastic polyp of colon (~2008) Surgical History (Updated 07/13/24 @ 10:42 by Praveen Bradley MD) Nicotine dependence, cigarettes, uncomplicated Chronic hypoxemic respiratory failure COPD (chronic obstructive pulmonary disease) History of appendectomy History of right salpingo-oophorectomy History of colonoscopy Social History Household Members: Family Housing: Apartment Do you presently have visiting nurse or other home services: No Unable to assess alcohol history related to: Unknown Patient Tobacco Use Status: Current everyday Tobacco user Tobacco use type: Cigarette Cigarettes Per Day: 3 Years Smoked: (onset 12yo, 1-2ppd x 62yrs, now 3cig/day - 90pyh) Second Hand Smoke Exposure: No service: No Review of Systems Const Denies fever(s) Eyes Reports no additional complaints ENT Reports nasal congestion Card Denies chest pain and Reports dyspnea on exertion Resp Reports chest congestion, Reports cough, Reports dyspnea on exertion and Reports wheezing GI Reports no additional complaints Musc Reports abnormal gait and Reports myalgias Skin/Breast Denies rash Neuro Reports abnormal gait Tomás/Lymph Reports no additional complaints Aller/Immun Reports wheezing Physical Exam Vital Signs: Last Vital Signs Pulse 82 10/07/24 09:02 BP 120/30 L 10/07/24 09:02 Pulse Ox 97 10/07/24 09:02 Oxygen Delivery Method Nasal Cannula 10/07/24 09:02 Oxygen Flow Rate 2 10/07/24 09:02 BMI result Body Mass Index 28.0 Const General: comfortable HEENT Head: Yes normocephalic Neck Neck: Yes supple Chest Chest palpation & inspection: normal inspection of the chest Resp Effort & Inspection: normal respiratory effort Auscultation: diminished lung sounds Cardio Heart sounds: S1 normal heart sound present and S2 normal heart sound present GI Palpation (GI): Soft to palpation Skin General skin exam: no rashes or lesions noted Extrem General: No cyanosis Assessment & Plan Assessment & Plan (1) COPD (chronic obstructive pulmonary disease): Code(s): J44.9 - Chronic obstructive pulmonary disease, unspecified Category: Surgical Qualifiers: COPD type: chronic bronchitis Chronic bronchitis type: mixed simple and mucopurulent Qualified Code(s): J41.8 - Mixed simple and mucopurulent chronic bronchitis (2) Chronic hypoxemic respiratory failure: Code(s): J96.11 - Chronic respiratory failure with hypoxia Category: Surgical (3) Smoker: Code(s): F17.200 - Nicotine dependence, unspecified, uncomplicated Category: Social Hx (4) Left upper lobe pulmonary nodule: Comment: (Spiculated ALEXANDRE nodule 1.8 x 1.0 x 1.0 cm - noted on 06/26/24 LDCT) Code(s): R91.1 - Solitary pulmonary nodule Category: Surgical Plan continue Trelegy 200 daily MITA as needed duoneb BID F/U with Thoracic surgery, Navigational bronchoscopy and likely resection tobacco cessation: needs to quit Continue oxygen supplementatio: POC 3l/pulse with activity, 2l/min while sleeping. F/U 4-6 months Coding Level of Care Code Est Pt Level 4 (19716) Complex EM visit Add On G2211 Diagnoses Mixed simple and mucopurulent chronic bronchitis J41.8 COPD type: chronic bronchitis Chronic bronchitis type: mixed simple and mucopurulent Chronic hypoxemic respiratory failure J96.11 Smoker F17.200 Left upper lobe pulmonary nodule R91.1 Time Spent (min) 17
[2024-10-07 09:02] VITALS: BP 120/30; PULSE 82; O2SAT 97; BMI 28.0
--- OUTSIDE RECORDS SUMMARY | 2024-10-07 09:23 | XMS_ITS | Clinical Summary ---
Author Organization [facility] Address [address] [place] [phone] Phone Care Team Providers Care [place] Superintendent Name Role Phone Lindsay Nelson MD Primary Care Provider Allergies No known active allergies Medications acetaminophen [...] 1 (one) time each day. 4 Active budesonide-form oteroL (SYMBICORT) 160-4.5 mcg/actuation inhaler 2 puffs 2 (two) times a day. 5 Active sertraline (ZOLOFT) 50 mg tablet Take 1 tablet (50 mg total) by mouth 1 (one) time each day. 4 Active ketorolac (ACULAR) 0.5 % ophthalmic solution Administer 1 drop into both eyes 4 (four) times a day. 5 Active amoxicillin-cla vulanate (AUGMENTIN) 875-125 mg per tabletIndicatio ns:Acute bronchitis due to Haemophilus influenzae Take 1 tablet by mouth 2 (two) times a day for 5 days. 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 COPD (chronic obstructive pu lmonary disease) ([facility] V24, [facility] V28) 07/20/2024 Encounters Date Type Department Care Team Description 09/22/2024 4:00 PM EDT Consult Pulmonology - [address] [phone] Paulette Berman MD Acute bronchitis due to Haemophilus influenzae (Primary Dx); Pulmonary nodule; SOB (shortness of breath) 09/21/2024 9:30 AM EDT Office Visit Thoracic Surgery - [place] [address] [place] [address] Shane Loving MD Pulmonary nodule (Primary Dx); Chronic obstructive pulmonary disease, unspecified COPD type ([facility] V24, [facility] V28) 09/14/2024 1:39 PM EDT - 09/14/2024 11:59 PM EDT Hospital Encounter [facility] CT Scan [address] [place] [address] Pulmonary nodule Discharge Disposition: Home or Self Care 09/01/2024 Telephone Thoracic Surgery - [place] [address] [place] [phone] Dea Garza [place] 08/13/2024 9:15 AM EDT Office Visit Thoracic Surgery [facility] [address] [facility] [address] [place] [phone] Shane Loving MD Pulmonary nodule (Primary Dx); Chronic obstructive pulmonary disease, unspecified COPD type ([facility] V24, [facility] V28) 07/30/2024 9:00 AM EDT - 07/30/2024 10:30 AM EDT Surgery [facility] Main OR [address] [place] [address] Shane Loving MD Navigational bronchoscopy/EBUS with biopsies [95514 (CPT??) +3 more] 07/30/2024 8:59 AM EDT Anesthesia Event [facility] Main OR [address] [place] [phone] Elicia Rojas MD Pierce, Trudy A, FREDRICK 07/30/2024 7:33 AM EDT - 07/30/2024 12:46 PM EDT Hospital Encounter [facility] Main OR [address] [place] [address] Shane Loving MD Pulmonary nodule Discharge Disposition: Home or Self Care 07/30/2024 7:15 AM EDT - 07/30/2024 11:59 PM EDT Hospital Encounter [facility] Xray [address] [place] [address] Pain Discharge Disposition: Home or Self Care 07/21/2024 Telephone Thoracic Surgery - [place] [address] [facility] [address] [place] [phone] Shane Loving MD Procedure (PCP , PAT , follow up no auth needed ) 07/20/2024 10:00 AM EDT Consult Thoracic Surgery - [address] [phone] Shane Loving MD Pulmonary nodule (Primary Dx); Chronic obstructive pulmonary disease, unspecified COPD type ([facility] V24, [facility] V28); Neoplasm 07/10/2024 Telephone Thoracic Surgery - [address] [phone] Shane Loving MD new consult 07/09/2024 7:19 AM EST - 07/09/2024 11:59 PM EST Hospital Encounter [facility] PET Scan [address] [place] [address] Solitary pulmonary nodule Discharge Disposition: Home or Self Care from Last 3 Months Surgical History Surgery Date Site/Laterality Comments APPENDECTOMY PROCEDURE: MD APPENDECTOMY OTHER SURGICAL HISTORY EYE SURGERY CATARACT EXTRACTION HYSTERECTOMY BRONCHOSCOPY 07/30/202407/30 Navigational bronchoscopy/EBUS with biopsies Medical History Medical History Date Comments Asthma DX:Asthma Osteoporosis DX:Osteoporosis Osteoarthritis DX:Osteoarthriti s Hyperlipidemia DX:Hyperlipidemi a COPD (chronic obstructive pu lmonary disease) ([facility] V24, [facility] V28) Pulmonary nodule Joint pain Social History Tobacco Use Types Packs/Day Years Used Date Smoking Tobacco: Every Day Cigarettes 1 61 Started: 1962 Smokeless Tobacco: Never Tobacco Cessation:Ready to Q uit: Not Asked; Counseling Given: Not Answered Alcohol Use Standard Drinks/Week Comments Never 0 (1 standard drink = 0.6 oz pur e alcohol) Comments No Sex and Gender Information Value Date Recorded Sex Assigned at Female 07/24/2024 8:58 AM EDT Legal Sex Female 9:05 AM EST Gender Identity Female 07/24/2024 8:58 AM EDT Sexual Orientation Straight 07/24/2024 8: 58 AM EDT Obstetrics History Last Filed Vital Signs Vital Sign Reading Time Taken Comments Blood Pressure 141/51 09/22/2024 3:54 PM EDT Pulse 69 09/22/2024 3:54 PM EDT Temperature 36.8 ??C (98.2 ??F) 09/22/2024 3 :54 PM EDT Respiratory Rate 18 08/13/2024 9:20 AM EDT Oxygen Saturation 98% 09/22/2024 3:5 4 PM EDT patient on 3L of oxygen Inhaled Oxygen Concentration - - Weight 71.5 kg (157 lb 11.2 oz) 09/22/2024 3:54 PM EDT Height 160 cm (5' 3 ) 09/22/2024 3:54 PM EDT Body Mass Index 27.94 09/22/2024 3:54 PM EDT Plan of Treatment Upcoming Encounters Date Type Department Care Team (Latest Contact Info) Description 10/21/2024 10:40 AM EDT Hospital Encounter [facility] [place] [address] [place] [phone] Paulette Berman MD [address] [place] [phone] 10/21/2024 10:40 AM EDT - 10/21/2024 1:05 PM EDT Surgery [facility] [place] [address] [place] [phone] Paulette Berman MD [address] [place] [phone] ROBOTIC ASSISTED BRONCHOSCOPY W. FNA, TBBX, BRUSH, BAL [20993 (CPT??)] 10/27/2024 8:00 AM EDT Office Visit Pulmonology - [address] [phone] Paulette Berman MD [address] [place] [phone] Scheduled Procedures Name Priority Associated Diagnoses Date/Ti me BRONCHOSCOPY Lung nodule 10/21/2024 10:40 AM EDT BRONCHOSCOPY NODULE 1 ROBOT Lung nodule 10/21/2024 10:40 AM EDT BRONCHOSCOPY NODULE 2 ROBOT Lung nodule 10/21/2024 10:40 AM EDT BRONCHOSCOPY NODULE 3 ROBOT Lung nodule 10/21/2024 10:40 AM EDT Health Maintenance Due Date Last Done Comments Breast Cancer Screening 1950 DTaP,Tdap,and Td Vaccines (1 - Tdap) 1969 Zoster Vaccines (1 of 2) 2000 RSV Immunization Adult Patie nts (1 - Risk 60-74 years 1-dose series) 2010 COVID-19 Vaccine (1 - 2023-2 5 season) 2024 Cholesterol Screening (Lipid Panel) 07/09/2024 Colorectal Cancer Screening: Colonoscopy 07/09/2024 Depression Screening 07/09/2024 Hepatitis C Screening 07/09/2024 Lung Cancer Screening (Low D ose CT) 07/09/2024 Medicare Annual Wellness Visit 07/09/2024 Osteoporosis Screening (Bone Density Screening) 07/09/2024 Social Influencers of Health Screening 07/09/2024 Falls Risk Assessment 07/30/2025 07/30/2024 Influenza Vaccine Completed 03/17/2024 Pneumococcal Vaccine: 50+ [...] age to complete this topic Meningococcal B Vaccine Aged Out No l onger eligible based on patient's age to complete this topic RSV Immunization Patients Un swetha 20 months Aged Out No longer eligible b ased on patient's age to complete this topic Varicella Vaccines Aged Out No longer eligible based on patient's age to complete this topic Procedures Procedure Name Priority Date/Time Associated Diagnosis Comments CT CHEST WO CONTRAST Routine 09/14/2024 2:25 PM EDT Pulmonary nodule XR CHEST 1 VIEW STAT 07/30/2024 11:19 AM EDT OXYGEN THERAPY, ADULT Routine 07/30/2024 10:43 AM EDT OXYGEN THERAPY, ADULT Routine 07/30/2024 10:43 AM EDT XR CHEST 1 VIEW Routine 07/30/2024 9:56 AM EDT Pain ..CONCENTRATION Routine 07/30/2024 9:51 AM EDT Pulmonary nodule ACID FAST BACILLI STAIN Routine 07/30/2024 9:51 AM EDT Pulmonary nodule CULTURE BRONCHIAL WITH GRAM STAIN Routine 07/30/2024 9:51 AM EDT Pulmonary nodule CULTURE, AFB AND SMEAR WITH REFLEX TO IDENTIFICATION AND SUSCEPTIBILITY Routine 07/30/2024 9:51 AM EDT Pulmonary nodule CULTURE FUNGAL, OTHER Routine 07/30/2024 9:51 AM EDT Pulmonary nodule NON-GYNECOLOGIC CYTOLOGY Routine 07/30/2024 9:49 AM EDT Pulmonary nodule TH AN ENDOTRACHEAL(NO CHARGE) Routine 07/30/2024 9:48 AM EDT FINE NEEDLE ASPIRATION Routine 07/30/2024 9:40 AM EDT Pulmonary nodule MD BRONCHOSCOPY RIGID/FLEXIBLE W/EBUS >=3 MEDIASTINAL/HILAR LYMPH NODES 07/30/2024 9:01 AM EDT Pulmonary nodule Case Notes C-ARM, endobronchial ultrasound, move to OR15 Special Needs C-arm- endobronchial ultrasound TIME CHANGE VIA PHONE W/JANAE PUTNAM 07/28 MD BRONCHOSCOPY INCL FLUOROSCOPIC GUID W EBUS DURING PERIPHERAL LESION 07/30/2024 9:01 AM EDT Pulmonary nodule Case Notes C-ARM, endobronchial ultrasound, move to OR15 Special Needs C-arm- endobronchial ultrasound TIME CHANGE VIA PHONE W/JANAE PUTNAM 07/28 MD BRONCHOSCOPY INCL FLUROSCOPIC GUIDANCE W PLCMNT FIDUCIAL MARKER SGL/MULT 07/30/2024 9:01 AM EDT Pulmonary nodule Case Notes C-ARM, endobronchial ultrasound, move to OR15 Special Needs C-arm- endobronchial ultrasound TIME CHANGE VIA PHONE Radha/JANAE PUTNAM 07/28 MD BRONCHOSCOPY RIGID/FLEXIBLE COMPUTER ASSISTED IMAGE GUIDED NAVIGATION 07/30/2024 9:01 AM EDT Pulmonary nodule Case Notes C-ARM, endobronchial ultrasound, move to OR15 Special Needs C-arm- endobronchial ultrasound TIME CHANGE VIA PHONE W/JANAE PUTNAM 07/28 PROCEDURAL ECG Routine 07/24/2024 9:25 AM EDT [...] nodule from Last 3 Months Results * CT Chest wo Contrast (09/14/2024 2:25 PM EDT) Anatomical Region Laterality Modality Body Computed Tomogra phy 09/14/2024 4:39 PM EDT Impressions 09/14/2024 4:46 PM EDT A spiculated nodule in the medial left upper lobe is slightly larger than on the 06/26/[address] and was FDG avid on an interval PET scan. ??The finding is again concerning for a primary lung neoplasm. -------- FINAL REPORT -------- Dictated By: Gary Ho Dictated Date: 09/14/2024 16:39 ET Assigned Physician: Gary Ho Reviewed and Electronically Signed By: Gary Ho Signed Date: 09/14/2024 16:46 ET Workstation ID: [id number] Transcribed By: Self Edit Transcribed Date: 09/14/2024 16:39 ET Narrative 09/14/2024 4:46 PM EDT PROCEDURE: CT of the chest without intravenous contrast. TECHNIQUE: CT of the chest without intravenous contrast administration. ??Coronal and sagittal reformats and MIP reconstructions were created. Dose length product: 160 mGy-cm. HISTORY: Lung nodule, 6-8mm COMPARISON: 06/26/2024. FINDINGS: LUNGS/PLEURA: Normal caliber central airways. ??Mild bronchial wall thickening and mild mucus plugging in the small caliber airways in the lower lobes at the bases. ??Moderate centrilobular emphysema. ??A spiculated nodule in the right upper lobe at the medial apex is slightly larger, measuring 1.6 x 1.0 cm, previously 1.6 x 0.8 cm. ??No pleural effusion or pneumothorax. MEDIASTINUM/MARIAM: Heterogeneous thyroid gland suggestion of a nodule in the left lower pole. ??The thyroid could be better evaluated with ultrasound. ??No mediastinal mass or lymphadenopathy. ??No appreciable hilar lymphadenopathy on limited noncontrast evaluation. VASCULATURE: Normal caliber pulmonary arteries. ??Moderate atherosclerotic calcifications of the aorta and great vessels. CARDIAC: Normal heart size. ??Mild aortic annular and minimal coronary artery calcification. CHEST WALL: No axillary or supraclavicular lymphadenopathy. LIMITED ABDOMEN: Unremarkable. BONES: Diffusely demineralized. ??Mild degenerative changes of the thoracic spine with findings of DISH. ??Mild degenerative changes of the glenohumeral joints. ??Remote fracture deformity of the posterior left 4th rib. Procedure Note Gary Ho MD - 09/14/2024 PROCEDURE: CT of the chest without intravenous contrast. TECHNIQUE: CT of the chest without intravenous contrast administration.Coronal and sagittal reformats and MIP reconstructions were created. Dose length product: 160 mGy-cm. HISTORY: Lung nodule, 6-8mm COMPARISON: 06/26/2024. FINDINGS: LUNGS/PLEURA: Normal caliber central airways. Mild bronchial wallthickening and mild mucus plugging in the small caliber airways in thelower lobes at the bases. Moderate centrilobular emphysema. A spiculatednodule in the right upper lobe at the medial apex is slightly larger,measuring 1.6 x 1.0 cm, previously 1.6 x 0.8 cm. No pleural effusion orpneumothorax. MEDIASTINUM/MARIAM: Heterogeneous thyroid gland suggestion of a nodule inthe left lower pole. The thyroid could be better evaluated withultrasound. No mediastinal mass or lymphadenopathy. No appreciable hilarlymphadenopathy on limited noncontrast evaluation. VASCULATURE: Normal caliber pulmonary arteries. Moderate atheroscleroticcalcifications of the aorta and great vessels. CARDIAC: Normal heart size. Mild aortic annular and minimal coronaryartery calcification. CHEST WALL: No axillary or supraclavicular lymphadenopathy. LIMITED ABDOMEN: Unremarkable. BONES: Diffusely demineralized. Mild degenerative changes of the thoracicspine with findings of DISH. Mild degenerative changes of theglenohumeral joints. Remote fracture deformity of the posterior left 4thrib. IMPRESSION: A spiculated nodule in the medial left upper lobe is slightly larger thanon the 06/26/[address] and was FDG avid on an interval PET scan.The finding is again concerning for a primary lung neoplasm. -------- FINAL REPORT -------- Dictated By: Gary Ho Dictated Date: 09/14/2024 16:39 ET Assigned Physician: Gary Ho Reviewed and Electronically Signed By: Gary Ho Signed Date: 09/14/2024 16:46 ET Workstation ID: [id number] Transcribed By: Self Edit Transcribed Date: 09/14/2024 16:39 ET us Shane Loving MD IMG CT PROCEDURES Final Result * XR Chest 1 View (07/30/2024 11:19 AM EDT) Only the most recent of2 resultswithin the time period is included. Anatomical Region Laterality Modality Body Radiographic Malina ging 07/30/2024 11:2 4 AM EDT Impressions 07/30/2024 11:26 AM EDT Left perihilar/midlung zone attenuation likely represents a small amount of postbiopsy hemorrhage. -------- FINAL REPORT -------- Dictated By: Zhang Hatfield Dictated Date: 07/30/2024 11:24 ET Assigned Physician: Zhang Hatfield Reviewed and Electronically Signed By: Zhang Hatfield Signed Date: 07/30/2024 11:26 ET Workstation ID: [id number] Transcribed By: Self Edit Transcribed Date: 07/30/2024 11:24 ET Narrative 07/30/2024 11:26 AM EDT INDICATION: Status post left lung biopsy FINDINGS: Single portable AP view of the chest obtained. Compared to study from March 16, 2024. PET/CT from July 09, 2024 reviewed. New airspace disease within the left perihilar region/midlung zone likely represents a small amount of post biopsy hemorrhage. No pneumothorax or pleural effusion. Right lung clear. Heart normal in size and shape. Bony structures are grossly intact and normal for the patient's age. Procedure Note Zhang Hatfield MD - 07/30/2024 INDICATION: Status post left lung biopsy FINDINGS: Single portable AP view of the chest obtained. Compared to studyfrom March 16, 2024. PET/CT from July 09, 2024 reviewed. New airspace disease within the left perihilar region/midlung zone likelyrepresents a small amount of post biopsy hemorrhage. No pneumothorax orpleural effusion. Right lung clear. Heart normal in size and shape. Bony structures are grossly intact and normal for the patient's age. IMPRESSION: Left perihilar/midlung zone attenuation likely represents a small amountof postbiopsy hemorrhage. -------- FINAL REPORT -------- Dictated By: Zhang Hatfield Dictated Date: 07/30/2024 11:24 ET Assigned Physician: Zhang Hatfield Reviewed and Electronically Signed By: Zhang Hatfield Signed Date: 07/30/2024 11:26 ET Workstation ID: [id number] Transcribed By: Self Edit Transcribed Date: 07/30/2024 11:24 ET Shane Loving MD IMG XR PROCEDURES Final Result * (ABNORMAL) Culture bronchial with gram stain (07/30/2024 9:51 AM EDT) Bronchial Culture Haemophilus parainfluenzae(A) 08/02/2024 2:29 PM EDT [facility] Comment: Beta-lactamase negative The organism value for this result has been updated. These results have been appended to the previously preliminary verified report. Beta Lactamase Negative 08/02/2024 2:29 PM EDT [facility] Gram Stain Result No polymorphonuclear leukocytes, No epithelial cells, and No organisms noted 08/02/2024 2:29 PM EDT [facility] Wash Structure of upper lobe of left lung / Unknown 07/30/2024 9:51 AM EDT 07/30/2024 11:05 AM EDT Shane Loving MD LAB MICROBIOLOGY - GENERAL ORDER FRANKI Final Result Performing Organization Address City/[facility]/ZIP Co de Phone Number [facility] [address] [place] [address], [place] [phone] * Concentration (07/30/2024 9:51 AM EDT) AFB Concentration Performed 025 2:05 PM EDT [facility] Wash Structure of upper lobe of left lung / Unknown 07/30/2024 9:51 AM EDT 07/30/2024 11:05 AM EDT Narrative [facility] - 09/15/2024 2:05 PM EDT Performed at: ??01 - [facility] [address] ??[id number] Manager Media Relations: Tati Patel MD, Phone: ??[phone] us Shane Loving MD LAB BLOOD ORDERABLES Edited Resu lt - Final [facility] * Culture, afb and smear with reflex to identification and susceptibility (07/30/2024 9:51 AM EDT) AFB Specimen Processing Concentration 09/15/2024 2:05 PM EDT [facility] Acid Fast Smear Negative 09/15/2024 2:05 PM EDT [facility] Acid Fast Culture Negative 09/15/2024 2:05 PM EDT [facility] Comment:No acid fast bacilli isolated after 6 weeks. Wash Structure of upper lobe of left lung / Unknown 07/30/2024 9:51 AM EDT 07/30/2024 11:05 AM EDT Narrative [facility] - 09/15/2024 2:05 PM EDT Performed at: ??01 - [facility] [address] ??[id number] Manager Media Relations: Tati Patel MD, Phone: ??[phone] Shane Loving MD LAB MICROBIOLOGY - GENERAL ORDER FRANKI Final Result Performing Organization Address [facility] [place] de Phone Number [facility] * Acid fast bacilli stain (07/30/2024 9:51 AM EDT) AFB Stain Result No Acid fast bacilli seen on direct smear (Fuchsin method, 1000x) No Acid Fast Bacilli seen on direct smear 07/30/2024 2:17 PM EDT [facility] Wash Structure of upper lobe of left lung / Unknown 07/30/2024 9:51 AM EDT 07/30/2024 11:05 AM EDT us Shane Loving MD LAB MICROBIOLOGY - GENERAL ORDER FRANKI Final Result Performing Organization Address [facility] Co de Phone Number [facility] [address] [place] [address], [place] [phone] * Culture fungal, other (07/30/2024 9:51 AM EDT) Culture, Fungus Negative for Fungus after 4 Weeks 08/31/2024 9:48 AM EDT [facility] Wash Structure of upper lobe of left lung / Unknown 07/30/2024 9:51 AM EDT 07/30/2024 11:05 AM EDT us Shane Loving MD LAB MICROBIOLOGY - GENERAL ORDER FRANKI Final Result [facility] [address] [place] [address], * Non-gynecologic cytology (07/30/2024 9:49 AM EDT) Final Diagnosis A. Lung, Left Upper Lobe, bronchial brushing, (ThinPrep, cell block): Negative for malignant cells. B. Lung, Left Upper Lobe, bronchial washing, (ThinPrep, cell block): Negative for malignant cells. 07/31/2024 10:45 AM EDT [facility] Specimen A Adequacy Satisfactory for evaluation 07/31/2024 10:45 AM EDT [facility] Specimen B Adequacy Satisfactory for evaluation 07/31/2024 10:45 AM EDT [facility] Gross Description A. Lung, Left Upper Lobe, Left Upper Lobe Bronchial Brushing: Received in Cytolyt 30 ml of clear fluid; 1 ThinPrep,1 cell block Cell block in formalin @11:30-total formalin fixation time 9.5 hours. B. Lung, Left Upper Lobe, Left Upper Lobe Bronchial Washing: Received in Cytolyt 30 ml of clear fluid; 1 ThinPrep, 1 cell block Cell block in formalin @11:30-total formalin fixation time 9.5 hours. 07/31/2024 10:45 AM EDT [facility] Disclaimer Unless otherwise specified, all tissue is 10% NB formalin fixed and paraffin embedded. Technical cytopathology services provided by [facility], at [address] [place] [id number] ([facility] # [id number]/Evelia Milan MD, [place] [employer]ing Supervisor.) 07/31/2024 10:45 AM EDT [facility] Brushing Structure of upper lobe of left lung / Unknown 07/30/2024 9:49 AM EDT 07/30/2024 11:27 AM EDT Specimen obtained by lavage (specimen) Structure of upper lobe of left lung / Unknown 07/30/2024 9:50 AM EDT 07/30/2024 11:28 AM EDT us Shane Loving MD LAB CYTOLOGY ORDERABLES Final Re sult [facility]) [facility] [address] [place] [address], [place] [phone] * TH AN ENDOTRACHEAL(NO CHARGE) (07/30/2024 9:48 AM EDT) Narrative Chyna Felipe CRNA - 07/30/2024 9:48 AM EDT Chyna Felipe CRNA ? 07/30/2024 ??9:49 AM General Information and Staff Patient location during procedure: OR Performed by: Chyna Felipe CRNA Authorized by: Elicia Rojas MD ?? Intubation Airway not difficult Urgency: elective Final Airway Details Successful airway: ETT Successful intubation technique: direct laryngoscopy Facilitating devices/methods: anterior pressure/BURP Blade: Mendez Blade size: #3 ETT size (mm): 8.0 Cormack-Lehane Classification: grade I - full view of glottis Placement verified by: chest auscultation and capnometry Measured from: lips ETT to lips (cm): 21Final airway type: endotracheal airway Indications and Patient Condition Indications for airway management: anesthesia Soft Tissue Damage: No Dentition Unchanged: Yes Patient position: neutral us Elicia Rojas MD ANESTHESIA ORDERABLES Final Resu lt * Fine needle aspiration (07/30/2024 9:40 AM EDT) Final Diagnosis A. Lung, Left Upper Lobe Nodule, (ThinPrep, cell block): Non-diagnostic. No lymph node elements identified. B. Lymph Node, Right Paratracheal, (ThinPrep, cell block): Non-diagnostic. No lymph node elements identified. C. Lymph Node, Left Paratracheal, (ThinPrep, cell block): Non-diagnostic. No lymph node elements identified. D. Lymph Node, Subcarinal, (ThinPrep, cell block): Negative for malignant cells. Benign lymph node elements present. 07/31/2024 10:51 AM [facility] Specimen A Adequacy Specimen processed and examined, but unsatisfactory for eval of abnormal epithelial 07/31/2024 10:51 AM [facility] Specimen B Adequacy Specimen processed and examined, but unsatisfactory for eval of abnormal epithelial 07/31/2024 10:51 AM [facility] Specimen C Adequacy Specimen processed and examined, but unsatisfactory for eval of abnormal epithelial 07/31/2024 10:51 AM [facility] Specimen D Adequacy Satisfactory for evaluation 07/31/2024 10:51 AM [facility] Gross Description A. Lung, Left Upper Lobe, Left Upper Lobe Lung Nodule: Received in Cytolyt 30 ml of light pink fluid; 1 ThinPrep, 1 cell block Cell block in formalin @11:30-total formalin fixation time 9.5 hours. B. Lymph Node, Right Paratracheal Lymph Node: Received in Cytolyt 30 ml of pink fluid; 1 ThinPrep, 1 cell block Cell block in formalin @11;30-total formalin fixation time 9.5 hours. C. Lymph Node, Left Paratracheal Lymph Node: Received in Cytolyt 30 ml of light pink fluid; 1 ThinPrep, 1 cell block Cell block in formalin @11:30-total formalin fixation time 9.5 hours. D. Lymph Node, Subcarinal Lymph Node: Received in Cytolyt 30 ml of pink fluid; 1 ThinPrep, 1 cell block Cell block in formalin @11;30-total formalin fixation time 9.5 hours. 07/31/2024 10:51 AM EDT [facility] Disclaimer Unless otherwise specified, all tissue is 10% NB formalin fixed and paraffin embedded. Technical cytopathology services provided by [facility], at [address] [place] [address] (CLIA # [id number]/Julien Milan MD, [employer] Supervisor.) 07/31/2024 10:51 AM EDT [facility] Fine Needle Aspirate Structure of upper lobe of left lung / Unknown 07/30/2024 9:40 AM EDT 07/30/2024 11:19 AM EDT Specimen obtained by fine needle aspiration procedure (specimen) Lymph node specimen / Unknown 07/30/2024 10:17 AM EDT 07/30/2024 11:21 AM EDT Specimen obtained by fine needle aspiration procedure (specimen) Lymph node specimen / Unknown 07/30/2024 10:21 AM EDT 07/30/2024 11:22 AM EDT Specimen obtained by fine needle aspiration procedure (specimen) Lymph node specimen / Unknown 07/30/2024 10:28 AM EDT 07/30/2024 11:23 AM EDT us Shane Loving MD LAB PATHOLOGY ORDERABLES Final R esult [facility] [address] [place] [address], * ECG 12 lead - Procedural (No Charge) (07/24/2024 9:25 AM EDT) Ventricular Rate ECG 64 BPM GEMUSE Atrial Rate 64 BPM GEMUSE P-R Interval 120 ms GEMUSE QRS Duration 82 ms GEMUSE Q-T Interval 388 ms GEMUSE QTc 400 ms GEMUSE P Wave [place] 68 degrees GEMUSE R [place] 51 degrees GEMUSE T [place] 69 degrees GEMUSE ECG Interpretation Normal sinus rhythm Increased R/S ratio in V1, consider early transition or posterior infarct or abnormal lead placement Abnormal ECG When compared with ECG of 17-NOV-2020 13:42, abnormal R wave progression is now seen Confirmed by Veronica AGGARWAL JOHN ([id number]) on 07/25/2024 11:16:39 AM GEMUSE 07/24/2024 9:25 AM EDT 07/25/2024 11:16 AM EDT us Shane Loving MD ECG ORDERABLES Final Result GEMUSE * (ABNORMAL) CBC auto differential (07/24/2024 8:48 AM EDT) WBC 5.8 4.8 - 10.8 K/mcL LAB HEMETOLOGY METHOD 07/24/2024 9:38 AM EDT [facility] RBC 3.90 3.80 - 4.80 M/mcL LAB HEMETOLOGY METHOD 07/24/2024 9:38 AM [facility] Hemoglobin 10.4(L) 11.5 - 16.0 g/dL LAB HEMETOLOGY METHOD 07/24/2024 9:38 AM [facility] Hematocrit 34.4(L) 35.0 - 47.0 % LAB HEMETOLOGY METHOD 07/24/2024 9:38 AM [facility] MCV 88.7 79.0 - 98.0 FL LAB HEMETOLOGY METHOD 07/24/2024 9:38 AM [facility] MCH 26.8(L) 27.0 - 32.0 pcg LAB HEMETOLOGY METHOD 07/24/2024 9:38 AM [facility] MCHC 30.2(L) 32.0 - 37.0 g/dL LAB HEMETOLOGY METHOD 07/24/2024 9:38 AM [facility] RDW 17.6(H) 11.0 - 15.0 % LAB HEMETOLOGY METHOD 07/24/2024 9:38 AM [facility] Platelets 359 130 - 400 K/mcL LAB HEMETOLOGY METHOD 07/24/2024 9:38 AM [facility] MPV 10.3 7.0 - 11.0 FL LAB HEMETOLOGY METHOD 07/24/2024 9:38 AM [facility] NRBC 0.0 <1.0 % LAB HEMETOLOGY METHOD 07/24/2024 9:38 AM [facility] NRBC Absolute 0.00 <0.10 K/mcL LAB HEMETOLOGY METHOD 07/24/2024 9:38 AM [facility] Neutrophils Relative 62.7 % LAB HEMETOLOGY METHOD 07/24/2024 9:38 AM [facility] Lymphocytes Relative 27.8 % LAB HEMETOLOGY METHOD 07/24/2024 9:38 AM [facility] Monocytes Relative 7.5 % LAB HEMETOLOGY METHOD 07/24/2024 9:38 AM [facility] Eosinophils Relative 1.6 % LAB HEMETOLOGY METHOD 07/24/2024 9:38 AM [facility] Basophils Relative 0.2 % LAB HEMETOLOGY METHOD 07/24/2024 9:38 AM [facility] Immature Granulocytes Relative 0.2 % LAB HEMETOLOGY METHOD 07/24/2024 9:38 AM [facility] Neutrophils Absolute 3.62 1.50 - 7.00 K/mcL LAB HEMETOLOGY METHOD 07/24/2024 9:38 AM [facility] Lymphocytes Absolute 1.60 1.00 - 5.00 K/mcL LAB HEMETOLOGY METHOD 07/24/2024 9:38 AM [facility] Monocytes Absolute 0.43 0.20 - 1.00 K/mcL LAB HEMETOLOGY METHOD 07/24/2024 9:38 AM [facility] Eosinophils Absolute 0.09 0.00 - 0.50 K/[facility] LAB HEMETOLOGY METHOD 07/24/2024 9:38 AM EDT [facility] Basophils Absolute 0.01 0.00 - 0.20 K/[facility] LAB HEMETOLOGY METHOD 07/24/2024 9:38 AM EDT [facility] Immature Granulocytes Absolute 0.01 0.00 - 0.03 K/[facility] LAB HEMETOLOGY METHOD 07/24/2024 9:38 AM EDT [facility] Blood Venous blood specimen / Unknown Venipuncture / Unknown 07/24/2024 8:48 AM EDT 07/24/2024 9:34 AM EDT us Shane Loving MD LAB BLOOD ORDERABLES Final Resul t Performing Organization Address [facility]/ZIP Co de Phone Number [facility] [address] [place] [address], [place] [phone] * Activated partial thromboplastin time (07/24/2024 8:48 AM EDT) aPTT 37.8 24.1 - 39.3 sec LAB COAGULATION METHOD 07/24/2024 10:24 AM EDT [facility] Blood Venous blood specimen / Unknown Venipuncture / Unknown 07/24/2024 8:48 AM EDT 07/24/2024 9:33 AM EDT us Shane Loving MD LAB BLOOD ORDERABLES Final Resul t Performing Organization Address City/[facility]/ZIP Co de Phone Number [facility] [address] [place] [address], [place] [phone] * Prothrombin time with INR (07/24/2024 8:48 AM EDT) Protime 10.6 10.6 - 13.9 sec LAB COAGULATION METHOD 07/24/2024 10:24 AM EDT [facility] INR 0.8 LAB COAGULATION METHOD 07/24/2024 10:24 AM EDT [facility] Blood Venous blood specimen / Unknown Venipuncture / Unknown 07/24/2024 8:48 AM EDT 07/24/2024 9:33 AM EDT us Shane Loving MD LAB BLOOD ORDERABLES Final Resul t Performing Organization Address [facility] Co de Phone Number [facility] [address] [place] [address], [place] [phone] * Type and screen (07/24/2024 8:48 AM EDT) Pathologist [facility] O 07/24/2024 10:25 AM EDT [facility] Rh Type Positive 07/24/2024 10:25 AM EDT [facility] Antibody Screen Negative 07/24/2024 10:25 AM EDT [facility] Blood Venous blood specimen / Unknown Venipuncture / Unknown 07/24/2024 8:48 AM EDT 07/24/2024 9:34 AM EDT us Shane Loving MD LAB BLOOD BANK TEST ORDERABLES F inal Result Performing Organization Address [facility] de Phone Number [facility] [address] [place] [address], [place] [phone] * (ABNORMAL) Basic metabolic panel (07/24/2024 8:48 AM EDT) Sodium 143 133 - 145 mmol/L LAB CHEMISTRY METHOD 07/24/2024 10:06 AM EDT [facility] Potassium 3.9 3.5 - 5.5 mmol/L LAB CHEMISTRY METHOD 07/24/2024 10:06 AM EDT [facility] Chloride 107 96 - 110 mmol/L LAB CHEMISTRY METHOD 07/24/2024 10:06 AM [facility] CO2 31 21 - 32 mmol/L LAB CHEMISTRY METHOD 07/24/2024 10:06 AM [facility] Anion Gap 5 3 - 11 LAB CHEMISTRY METHOD 07/24/2024 10:06 AM [facility] Glucose 102(H) 70 - 100 mg/dL LAB CHEMISTRY METHOD 07/24/2024 10:06 AM [facility] BUN 19 5 - 25 mg/dL LAB CHEMISTRY METHOD 07/24/2024 10:06 AM [facility] Creatinine 0.92 0.50 - 1.10 mg/dL LAB CHEMISTRY METHOD 07/24/2024 10:06 AM [facility] eGFR 65 >=60 mL/min/1. 73m2 LAB CHEMISTRY METHOD 07/24/2024 10:06 AM [facility] Comment:Calculation based on the??Chronic Kidney Disease Epidemiology Collaboration (CKD-EPI) equation refit??without adjustment for race. BUN/Creatinine Ratio 20.7 LAB CHEMISTRY METHOD 07/24/2024 10:06 AM [facility] Calcium 9.6 8.5 - 10.5 mg/dL LAB CHEMISTRY METHOD 07/24/2024 10:06 AM [facility] Blood Venous blood specimen / Unknown Venipuncture / Unknown 07/24/2024 8:48 AM EDT 07/24/2024 9:34 AM EDT us Shane Loving MD LAB BLOOD ORDERABLES Final Resul t [facility] [address] [place] [address], * PET CT Skull to Mid Thigh [...] Signed Date: 07/14/2024 05:27 ET Workstation ID: [id number] Transcribed By: Self Edit Transcribed Date: 07/14/2024 [...] Signed Date: 07/14/2024 05:27 ET Workstation ID: [id number] Transcribed By: Self Edit Transcribed Date: 07/14/2024 04:17 ET Raymond Garcia MD IMG NM PROCEDURES Final Re sult from Last 3 Months Insurance MEDICARE MEDICAID - [place] Advance Directives * Full Code - Default (Latest Code Status on File) Date Activated Date Inactivated Comments 07/30/2024 7:45 AM 07/30/2024 2:46 PM This is orde r is used when code status has not been discussed with the patient, or code status is otherwise unknown/unconfirmed To update the patient's code status, place a code status order. Do not modify or discontinue any currently active code status orders. Care Teams [place] Superintendent Relationship Specialty Start Date End Date Lindsay Nelson MD [address] [place] [address] [place] [address] PCP - General Internal Medicine 07/20/24 ISAURA Dill Physician [employer] Operator 06/26/24
== END 2024-10-07 09:30 | disposition home or self-care (01) ==
LOC: HO.HPS 08:58
PROVIDERS: PCP Internal Medicine; Visit Provider Hospitalist
DX: J41.8 Mixed simple and mucopurulent chronic bronchitis (principal); J96.11 Chronic respiratory failure with hypoxia; F17.200 Nicotine dependence, unspecified, uncomplicated; R91.1 Solitary pulmonary nodule
CPT/HCPCS: 99214; G2211

== ENCOUNTER → 2024-10-07 08:57 | Outpatient (BNVA) | payer MEDICARE, MEDICAID, SELFPAY | PROVIDERS: PCP Internal Medicine; Visit Provider Hospitalist | DX: J41.8 Mixed simple and mucopurulent chronic bronchitis (principal); J96.11 Chronic respiratory failure with hypoxia; R91.1 Solitary pulmonary nodule; F17.210 Nicotine dependence, cigarettes, uncomplicated | CPT/HCPCS: 99212 ==

== ENCOUNTER 2024-10-12 14:15 | Outpatient (REF) | payer MEDICARE, MEDICAID, SELFPAY ==
--- NOTE | ~2024-10-12 | US_ITS ---
EXAMINATION: US THYROID HISTORY: Disorder of thyroid TECHNIQUE: Real-time grayscale ultrasound imaging was performed and images were reviewed. COMPARISON: There are no prior studies available for comparison. FINDINGS: SIZE: The right thyroid lobe measures 5.3 x 1.8 x 2.0 cm. The left thyroid lobe measures 5.7 x 1.8 x 2.5 cm. The isthmus measures 8 mm. FLOW: Flow to the gland is normal. ECHOGENICITY: The echotexture of the gland is heterogeneous. NODULES: Scattered nodules are seen in both thyroid lobes as described below: Nodule #: 1 Location: Upper pole of the left thyroid lobe measuring 1.1 x 0.6 x 0.9 cm. Shape: Wider than tall (0 points) Margins: Smooth (0 points) Echotexture: Hypoechoic (2 points) Composition: Solid (2 points) Calcifications: None (0 points) Total points: 4 TIRADS: TR4: Moderately suspicious. Nodule #: 2 Location: Lower pole of the left thyroid lobe measuring 3.0 x 1.9 x 2.3 cm. Shape: Wider than tall (0 points) Margins: Smooth (0 points) Echotexture: Hypoechoic (2 points) Composition: Solid (2 points) Calcifications: None (0 points) Total points: 4 TIRADS: TR4: Moderately suspicious. Nodule #: 3 Location: Lower pole of the right thyroid lobe measuring 6 x 4 x 7 mm. Shape: Wider than tall (0 points) Margins: Smooth (0 points) Echotexture: Hyperechoic (1 point) Composition: Mostly solid (2 points) Calcifications: None (0 points) Total points: 3 TIRADS: TR3: Mildly suspicious. US/US thyroid IMPRESSION: Multiple bilateral thyroid nodules are identified. As per ACR TI-RADS guidelines below, ultrasound-guided fine-needle aspiration of the dominant nodule at the lower pole of the left thyroid lobe (nodule #2 above) is recommended. ACR TI-RADS Guidelines TR1 (0 points): Benign, No follow-up or biopsy required TR2 (2 points): Not Suspicious, No biopsy or follow up indicated TR3 (3 points): Mildly Suspicious, FNA if >= 2.5 cm, Follow if >= 1.5 cm TR4 (4-6 points): Moderately Suspicious, FNA if >= 1.5 cm, Follow if >= 1.0 cm TR5 (>=7 points): Highly Suspicious, FNA if >= 1.0 cm, Follow if >= 0.5 cm Electronically signed by: Aubrey Oleary MD 10/12/2024 03:16 PM EDT
--- OUTSIDE RECORDS SUMMARY | 2024-10-12 16:11 | XMS_ITS | Clinical Summary ---
Author Organization [facility] Address [address] [place] [phone] Phone Care Team Providers Care Hog Sawyer Name Role Phone Lindsay Nelson MD Primary [...] general and how their size, shape, and blade changer time affect her level of suspicion [...] answered. COPD (chronic obstructive pu lmonary disease) ([facility] V24, [facility] V28) 07/20/2024 Encounters Date Type Department Care Team Description 09/22/2024 4:00 PM EDT Consult Pulmonology - [address] [phone] Paulette Berman MD Acute bronchitis due to Haemophilus influenzae (Primary Dx); Pulmonary nodule; SOB (shortness of breath) 09/21/2024 9:30 AM EDT Office Visit Thoracic Surgery - [place] [address] [place] [address] Shane Loving MD Pulmonary nodule (Primary Dx); Chronic obstructive pulmonary disease, unspecified COPD type ([facility] V24, [facility] V28) 09/14/2024 1:39 PM EDT - 09/14/2024 11:59 PM EDT Hospital Encounter [facility] CT Scan [address] [place] [address] Pulmonary nodule Discharge Disposition: Home or Self Care 09/01/2024 Telephone Thoracic Surgery - [place] [address] [place] [phone] [place] 08/13/2024 9:15 AM EDT Office Visit Thoracic Surgery [facility] [address] [facility] [address] [place] [phone] Shane Loving MD Pulmonary nodule (Primary Dx); Chronic obstructive pulmonary disease, unspecified COPD type ([facility] V24, [facility] V28) 07/30/2024 9:00 AM EDT - 07/30/2024 10:30 AM EDT Surgery [facility] Main OR [address] [place] [address] Shane Loving MD Navigational bronchoscopy/EBUS with biopsies [80093 (CPT??) +3 more] 07/30/2024 8:59 AM EDT Anesthesia Event [facility] Main OR [address] [place] [phone] Elicia Rojas MD Pierce, Trudy A, FREDRICK 07/30/2024 7:33 AM EDT - 07/30/2024 12:46 PM EDT Hospital Encounter [facility] Main OR [address] [place] [address] Shane Loving MD Pulmonary nodule Discharge Disposition: Home or Self Care 07/30/2024 7:15 AM EDT - 07/30/2024 11:59 PM EDT Hospital Encounter [facility] Xray [address] [place] [address] Pain Discharge Disposition: Home or Self Care 07/21/2024 Telephone Thoracic Surgery - [address] [place] [address] Shane Loving MD Procedure (PCP , PAT , follow up no auth needed ) 07/20/2024 10:00 AM EDT Consult Thoracic Surgery - [address] [place] [address] Shane Loving MD Pulmonary nodule (Primary Dx); Chronic obstructive pulmonary disease, unspecified COPD type ([facility] V24, [facility] V28); Neoplasm from Last 3 Months Surgical History Surgery Date Site/Laterality Comments APPENDECTOMY PROCEDURE: [place] APPENDECTOMY OTHER SURGICAL HISTORY EYE SURGERY CATARACT EXTRACTION HYSTERECTOMY BRONCHOSCOPY 07/30/202407/30 Navigational bronchoscopy/EBUS with biopsies Medical History Medical History Date Comments Asthma DX:Asthma Osteoporosis DX:Osteoporosis Osteoarthritis DX:Osteoarthriti s Hyperlipidemia DX:Hyperlipidemi a COPD (chronic obstructive pu lmonary disease) ([facility] V24, [facility] V28) Pulmonary nodule Joint pain Social History [...] Description 10/21/2024 10:40 AM EDT Hospital Encounter [facility] OR [address] [place] [phone] Paulette Berman MD [address] [place] [phone] 10/21/2024 10:40 AM EDT - 10/21/2024 1:05 PM EDT Surgery [facility] OR [address] [place] [phone] Paulette Berman MD [address] [place] [phone] ROBOTIC ASSISTED BRONCHOSCOPY W. FNA, TBBX, BRUSH, BAL [00914 (CPT??)] 10/27/2024 8:00 AM EDT Office Visit Pulmonology - [address] [phone] Paulette Berman MD [address] [place] [phone] Scheduled Procedures Name Priority Associated Diagnoses Date/Ti [...] 60-74 years 1-dose series) 2010 COVID-19 Vaccine (2023-2 5 season) 2024 Cholesterol Screening (Lipid Panel) [...] Routine 07/30/2024 9:40 AM EDT Pulmonary nodule NJ BRONCHOSCOPY RIGID/FLEXIBLE W/EBUS >=3 MEDIASTINAL/HILAR LYMPH NODES 07/30/2024 9:01 AM EDT Pulmonary nodule Case Notes C-ARM, endobronchial ultrasound, move to OR15 Special Needs C-arm- endobronchial ultrasound TIME CHANGE VIA PHONE W/JANAE PUTNAM 07/28 [place] BRONCHOSCOPY INCL FLUOROSCOPIC GUID W EBUS DURING PERIPHERAL LESION 07/30/2024 9:01 AM EDT Pulmonary nodule Case Notes C-ARM, endobronchial ultrasound, move to OR15 Special Needs C-arm- endobronchial ultrasound TIME CHANGE VIA PHONE W/JANAE PUTNAM 07/28 [place] BRONCHOSCOPY INCL FLUROSCOPIC GUIDANCE W PLCMNT FIDUCIAL MARKER SGL/MULT 07/30/2024 9:01 AM EDT Pulmonary nodule Case Notes C-ARM, endobronchial ultrasound, move to OR15 Special Needs C-arm- endobronchial ultrasound TIME CHANGE VIA PHONE W/JANAE PUTNAM 07/28 [place] BRONCHOSCOPY RIGID/FLEXIBLE COMPUTER ASSISTED IMAGE GUIDED NAVIGATION [...] Routine 07/24/2024 8:48 AM EDT Pulmonary nodule from Last 3 Months Results * [...] Signed Date: 09/14/2024 16:46 ET Workstation ID: [id number] Transcribed By: Self Edit Transcribed Date: 09/14/2024 [...] Signed Date: 09/14/2024 16:46 ET Workstation ID: [id number] Transcribed By: Self Edit Transcribed Date: 09/14/2024 16:39 ET Shane Loving MD IMG CT PROCEDURES Final [...] Signed Date: 07/30/2024 11:26 ET Workstation ID: [id number] Transcribed By: Self Edit Transcribed Date: 07/30/2024 [...] Signed Date: 07/30/2024 11:26 ET Workstation ID: [id number] Transcribed By: Self Edit Transcribed Date: 07/30/2024 11:24 ET us Shane Loving MD IMG XR PROCEDURES Final Result * (ABNORMAL) Culture bronchial with gram stain (07/30/2024 9:51 AM EDT) Bronchial Culture Haemophilus parainfluenzae(A) 08/02/2024 2:29 PM EDT [facility] Comment: Beta-lactamase negative The organism value for this result has been updated. These results have been appended to the previously preliminary verified report. Beta Lactamase Negative 08/02/2024 2:29 PM EDT [facility] Gram Stain Result No polymorphonuclear leukocytes, No epithelial cells, and No organisms noted 08/02/2024 2:29 PM EDT [facility] Wash Structure of upper lobe of left lung / Unknown 07/30/2024 9:51 AM EDT 07/30/2024 11:05 AM EDT us Shane Loving MD LAB MICROBIOLOGY - GENERAL ORDER FRANKI Final Result [facility] [address] [place] [address], [place] [phone] * Concentration (07/30/2024 9:51 AM EDT) AFB Concentration Performed 2:05 PM EDT [facility] Wash Structure of upper lobe of left lung / Unknown 07/30/2024 9:51 AM EDT 07/30/2024 11:05 AM EDT Narrative [facility] - 09/15/2024 2:05 PM EDT Performed at: ??01 - [facility] [address] ??[id number] Customer Program Manager: Tati Patel MD, Phone: ??[phone] us Shane Loving MD LAB BLOOD ORDERABLES [...] PM EDT Performed at: ??01 - [facility] [address] ??[id number] Customer Program Manager: Tati Patel MD, Phone: ??[phone] us Shane Loving MD LAB MICROBIOLOGY - GENERAL ORDER FRANKI Final Result [facility] * Acid fast bacilli stain (07/30/2024 9:51 AM EDT) AFB Stain Result No Acid fast bacilli seen on direct smear (Fuchsin method, 1000x) No Acid Fast Bacilli seen on direct smear 07/30/2024 2:17 PM EDT [facility] Wash Structure of upper lobe of left lung / Unknown 07/30/2024 9:51 AM EDT 07/30/2024 11:05 AM EDT us Shane Loving MD LAB MICROBIOLOGY - GENERAL ORDER FRANKI Final Result Performing Organization Address [facility] de Phone Number [facility] [address] [place] [address], [place] [phone] * Culture fungal, other (07/30/2024 9:51 AM EDT) Culture, Fungus Negative for Fungus after 4 Weeks 08/31/2024 9:48 AM EDT [facility] Wash Structure of upper lobe of left lung / Unknown 07/30/2024 9:51 AM EDT 07/30/2024 11:05 AM EDT us Shane Loving MD LAB MICROBIOLOGY - GENERAL ORDER FRANKI Final Result Performing Organization Address City/[facility] Co de Phone Number [facility] [address] [place] [address], [place] [phone] * Non-gynecologic cytology (07/30/2024 9:49 AM EDT) Final Diagnosis A. Lung, Left Upper Lobe, bronchial brushing, (ThinPrep, cell block): Negative for malignant cells. B. Lung, Left Upper Lobe, bronchial washing, (ThinPrep, cell block): Negative for malignant cells. 07/31/2024 10:45 AM EDT [facility] Specimen A Adequacy Satisfactory for evaluation 07/31/2024 10:45 AM [facility] Specimen B Adequacy Satisfactory for evaluation 07/31/2024 10:45 AM [facility] Gross Description A. Lung, [...] time 9.5 hours. 07/31/2024 10:45 AM EDT [facility] Disclaimer Unless otherwise specified, all tissue is 10% NB formalin fixed and paraffin embedded. Technical cytopathology services provided by [facility], at [address] [place] [address] ([facility] # [id number]/Evelia Milan MD, Process Safety Engineering Technologist.) 07/31/2024 10:45 AM [facility] Brushing Structure of upper lobe of left lung / Unknown 07/30/2024 9:49 AM EDT 07/30/2024 11:27 AM EDT Specimen obtained by lavage (specimen) Structure of upper lobe of left lung / Unknown 07/30/2024 9:50 AM EDT 07/30/2024 11:28 AM EDT Shane Loving MD LAB CYTOLOGY ORDERABLES Final Re sult [facility] [address] [place] [address], * TH AN ENDOTRACHEAL(NO CHARGE) (07/30/2024 9:48 [...] No Dentition Unchanged: Yes Patient position: neutral Elicia Rojas MD ANESTHESIA ORDERABLES Final Resu [...] lymph node elements present. 07/31/2024 10:51 AM EDT [facility] Specimen A Adequacy Specimen processed and examined, but unsatisfactory for eval of abnormal epithelial 07/31/2024 10:51 AM [facility] Specimen B Adequacy Specimen processed and examined, but unsatisfactory for eval of abnormal epithelial 07/31/2024 10:51 AM [facility] Specimen C Adequacy Specimen processed and examined, but unsatisfactory for eval of abnormal epithelial 07/31/2024 10:51 AM [facility] Specimen D Adequacy Satisfactory for evaluation 07/31/2024 10:51 AM [facility] Gross Description A. Lung, [...] fixation time 9.5 hours. 07/31/2024 10:51 AM [facility] Disclaimer Unless otherwise specified, all tissue is 10% NB formalin fixed and paraffin embedded. Technical cytopathology services provided by [facility], at [address] [place] [address], [place] [address] (CLIA # [id number]/Julien Milan MD, Process Safety Engineering Technologist.) 07/31/2024 10:51 AM [facility] Fine Needle Aspirate Structure of upper [...] MD LAB PATHOLOGY ORDERABLES Final R esult [facility] ([facility]) [facility] [address] [place] [address], [place] [phone] * ECG 12 lead - Procedural (No Charge) (07/24/2024 9:25 AM EDT) Pathologist [facility] Ventricular Rate ECG 64 BPM GEMUSE Atrial Rate 64 BPM GEMUSE P-R Interval 120 ms GEMUSE QRS Duration 82 ms GEMUSE Q-T Interval 388 ms GEMUSE QTc 400 ms GEMUSE P Wave Brave 68 degrees GEMUSE R Brave 51 degrees GEMUSE T Brave 69 degrees GEMUSE ECG Interpretation Normal sinus rhythm Increased R/S ratio in V1, consider early transition or posterior infarct or abnormal lead placement Abnormal ECG When compared with ECG of 17-NOV-2020 13:42, abnormal R wave progression is now seen Confirmed by Veronica AGGARWAL JOHN ([id number]) on 07/25/2024 11:16:39 AM GEMUSE 07/24/2024 9:25 AM EDT 07/25/2024 11:16 AM EDT us Shane Loving MD ECG ORDERABLES Final Result Performing Organization Address City/[facility]/ZIP Co de Phone Number GEMUSE * (ABNORMAL) CBC auto differential (07/24/2024 8:48 AM EDT) Pathologist [facility] WBC 5.8 4.8 - 10.8 K/[facility] HEMETOLOGY METHOD 07/24/2024 9:38 AM [facility] RBC 3.90 3.80 - 4.80 M/[facility] HEMETOLOGY METHOD 07/24/2024 9:38 AM [facility] Hemoglobin 10.4(L) 11.5 - 16.0 g/dL LAB HEMETOLOGY METHOD 07/24/2024 9:38 AM [facility] Hematocrit 34.4(L) 35.0 - 47.0 % LAB HEMETOLOGY METHOD 07/24/2024 9:38 AM [facility] MCV 88.7 79.0 - 98.0 FL LAB HEMETOLOGY METHOD 07/24/2024 9:38 AM [facility] MCH 26.8(L) 27.0 - 32.0 pcg LAB HEMETOLOGY METHOD 07/24/2024 9:38 AM [facility] MCHC 30.2(L) 32.0 - 37.0 g/dL LAB HEMETOLOGY METHOD 07/24/2024 9:38 AM [facility] RDW 17.6(H) 11.0 - 15.0 % LAB HEMETOLOGY METHOD 07/24/2024 9:38 AM [facility] Platelets 359 130 - 400 K/[facility] HEMETOLOGY METHOD 07/24/2024 9:38 AM [facility] MPV 10.3 7.0 - 11.0 FL LAB HEMETOLOGY METHOD 07/24/2024 9:38 AM [facility] NRBC 0.0 <1.0 % LAB HEMETOLOGY METHOD 07/24/2024 9:38 AM [facility] NRBC Absolute 0.00 <0.10 K/[facility] HEMETOLOGY METHOD 07/24/2024 9:38 AM [facility] Neutrophils Relative 62.7 % LAB HEMETOLOGY METHOD 07/24/2024 9:38 AM [facility] Lymphocytes Relative 27.8 % LAB HEMETOLOGY METHOD 07/24/2024 9:38 AM [facility] Monocytes Relative 7.5 % LAB HEMETOLOGY METHOD 07/24/2024 9:38 AM [facility] Eosinophils Relative 1.6 % LAB HEMETOLOGY METHOD 07/24/2024 9:38 AM [facility] Basophils Relative 0.2 % LAB HEMETOLOGY METHOD 07/24/2024 9:38 AM [facility] Immature Granulocytes Relative 0.2 % LAB HEMETOLOGY METHOD 07/24/2024 9:38 AM [facility] Neutrophils Absolute 3.62 1.50 - 7.00 K/mcL LAB HEMETOLOGY METHOD 07/24/2024 9:38 AM [facility] Lymphocytes Absolute 1.60 1.00 - 5.00 K/mcL LAB HEMETOLOGY METHOD 07/24/2024 9:38 AM [facility] Monocytes Absolute 0.43 0.20 - 1.00 K/mcL LAB HEMETOLOGY METHOD 07/24/2024 9:38 AM [facility] Eosinophils Absolute 0.09 0.00 - 0.50 K/mcL LAB HEMETOLOGY METHOD 07/24/2024 9:38 AM [facility] Basophils Absolute 0.01 0.00 - 0.20 K/mcL LAB HEMETOLOGY METHOD 07/24/2024 9:38 AM [facility] Immature Granulocytes Absolute 0.01 0.00 - 0.03 K/mcL LAB HEMETOLOGY METHOD 07/24/2024 9:38 AM [facility] Blood Venous blood specimen / Unknown Venipuncture / Unknown 07/24/2024 8:48 AM EDT 07/24/2024 9:34 AM EDT us Shane Loving MD LAB BLOOD ORDERABLES Final Resul t Performing Organization Address City/[facility]/ZIP Co de Phone Number [facility] [address] [place] [address], [place] [phone] * Activated partial thromboplastin time (07/24/2024 8:48 AM EDT) aPTT 37.8 24.1 - 39.3 sec LAB COAGULATION METHOD 07/24/2024 10:24 AM EDT [facility] Blood Venous blood specimen / Unknown Venipuncture / Unknown 07/24/2024 8:48 AM EDT 07/24/2024 9:33 AM EDT us Shane Loving MD LAB BLOOD ORDERABLES Final Resul t Performing Organization Address [facility] Co de Phone Number [facility] [address] [place] [address], [place] [phone] * Prothrombin time with INR (07/24/2024 8:48 AM EDT) Protime 10.6 10.6 - 13.9 sec LAB COAGULATION METHOD 07/24/2024 10:24 AM EDT [facility] INR 0.8 LAB COAGULATION METHOD 07/24/2024 10:24 AM EDT [facility] Blood Venous blood specimen / Unknown Venipuncture / Unknown 07/24/2024 8:48 AM EDT 07/24/2024 9:33 AM EDT us Shane Loving MD LAB BLOOD ORDERABLES Final Resul t Performing Organization Address City/[facility]/ZIP Co de Phone Number [facility] [address] [place] [address], [place] [phone] * Type and screen (07/24/2024 8:48 AM EDT) Pathologist [facility] ABO Group O 07/24/2024 10:25 AM EDT [facility] Rh Type Positive 07/24/2024 10:25 AM EDT [facility] Antibody Screen Negative 07/24/2024 10:25 AM EDT [facility] Blood Venous blood specimen / Unknown Venipuncture / Unknown 07/24/2024 8:48 AM EDT 07/24/2024 9:34 AM EDT us Shane Loving MD LAB BLOOD BANK TEST ORDERABLES F inal Result [facility] [address] [place] [address], * (ABNORMAL) Basic metabolic panel (07/24/2024 8:48 AM EDT) [facility] Sodium 143 133 - 145 mmol/L LAB CHEMISTRY METHOD 07/24/2024 10:06 AM [facility] Potassium 3.9 3.5 - 5.5 mmol/L LAB CHEMISTRY METHOD 07/24/2024 10:06 AM [facility] Chloride 107 96 - 110 mmol/L LAB CHEMISTRY METHOD 07/24/2024 10:06 AM [facility] CO2 31 21 - 32 mmol/L LAB CHEMISTRY METHOD 07/24/2024 10:06 AM [facility] Anion Gap 5 3 - 11 LAB CHEMISTRY METHOD 07/24/2024 10:06 AM [facility] Glucose 102(H) 70 - 100 mg/dL LAB CHEMISTRY METHOD 07/24/2024 10:06 AM [facility] BUN 19 5 - 25 mg/dL LAB CHEMISTRY METHOD 07/24/2024 10:06 AM EDT [facility] Creatinine 0.92 0.50 - 1.10 mg/dL LAB CHEMISTRY METHOD 07/24/2024 10:06 AM EDT [facility] eGFR 65 >=60 mL/min/1. 73m2 LAB CHEMISTRY METHOD 07/24/2024 10:06 AM EDT [facility] Comment:Calculation based on the??Chronic Kidney Disease Epidemiology Collaboration (CKD-EPI) equation refit??without adjustment for race. BUN/Creatinine Ratio 20.7 LAB CHEMISTRY METHOD 07/24/2024 10:06 AM T [facility] Calcium 9.6 8.5 - 10.5 mg/dL LAB CHEMISTRY METHOD 07/24/2024 10:06 AM T [facility] Blood Venous blood specimen / Unknown Venipuncture / Unknown 07/24/2024 8:48 AM EDT 07/24/2024 9:34 AM EDT us Shane Loving MD LAB BLOOD ORDERABLES Final Resul t [facility] [address] [place] [address], from Last 3 Months Insurance MEDICARE MEDICAID [...] currently active code status orders. Care Teams Hog Sawyer Relationship Specialty Start Date End Date Lindsay Nelson MD [address] [place] [address] [place] [address] PCP - General Internal Medicine 07/20/24 ISAURA Dill Physician Corn Crop Supervisor 06/26/24
== END 2024-10-12 14:16 | disposition home or self-care (01) ==
LOC: HO.US 14:15
PROVIDERS: PCP Internal Medicine; Visit Provider Internal Medicine
DX: E07.9 Disorder of thyroid, unspecified (principal)
CPT/HCPCS: 76536

== ENCOUNTER → 2024-10-12 14:36 | Outpatient (BNV) | payer MEDICARE, MEDICAID, SELFPAY | PROVIDERS: PCP Internal Medicine; Visit Provider Radiology Diagnostic Radiology | DX: E04.2 Nontoxic multinodular goiter (principal) | CPT/HCPCS: 76536 ==

== ENCOUNTER 2024-10-23 06:21 | Outpatient (REF) | payer MEDICARE, MEDICAID, SELFPAY ==
[2024-10-23 07:31] LABS: Estimated Average Glucose 126 mg/dL
[2024-10-23 07:45] LABS: Alanine Aminotransferase 12 U/L (0-31); Alkaline Phosphatase 68 U/L (39-117); Anion Gap 11 (12-20); Aspartate Amino Transferase 16 U/L (5-31); Bilirubin Total 0.2 mg/dL (0.0-1.0); Blood Urea Nitrogen 20 mg/dL (9-16); Calcium 9.5 mg/dL (8.4-10.2); Carbon Dioxide 32 mmol/L (22-29); Chloride 104 mmol/L (96-108); Cholesterol 213 mg/dL (<200); Estimated Glomerular Filt Rate 51; Glucose Random 93 mg/dL (60-115); HDL Cholesterol 62 mg/dL (>40); LDL Cholesterol Calculated 131 mg/dL (<100); Potassium 3.8 mmol/L (3.3-5.1); Sodium 143 mmol/L (135-145); Total Protein 6.9 g/dL (6.5-8.0); Triglycerides 104 mg/dL (<150)
== END 2024-10-23 06:22 | disposition home or self-care (01) ==
LOC: HO.LAB 06:21
PROVIDERS: PCP Internal Medicine; Visit Provider Internal Medicine
DX: E11.9 Type 2 diabetes mellitus without complications (principal); F32.2 Major depressive disorder, single episode, severe without psychotic features; I10 Essential (primary) hypertension; R09.02 Hypoxemia
CPT/HCPCS: 36415; 80053; 80061; 83036

== ENCOUNTER 2024-11-23 10:36 | Outpatient (REF) | payer MEDICARE, MEDICAID, SELFPAY ==
--- NOTE | ~2024-11-23 | MM_ITS ---
EXAMINATION: MM DIAGNOSTIC DIGITAL MAMMOGRAPHY, RIGHT CLINICAL INFORMATION: 6 month follow-up for a few punctate calcifications in the right breast. COMPARISON: Mammography: Priors on PACS. TECHNIQUE: Digital mammography is performed in craniocaudal and mediolateral oblique views along with computer-aided detection (CAD). FINDINGS: There are scattered areas of fibroglandular density (ACR BI-RADS breast composition Category b). 2 calcifications which appear of developing probable dystrophic are not significantly changed from prior magnification views 6 months ago. No suspicious masses or other abnormal findings. Results are provided to the patient at time of visit by the technologist. MM/MM diagnostic mammo unilat RT IMPRESSION: 2 probable developing dystrophic calcifications in the upper inner right breast not significantly changed from prior magnification views 6 months ago. Recommend 6 month follow-up for further evaluation of stability when the patient will be due for bilateral mammography. ASSESSMENT: BI-RADS BI-RADS 3 - Probably benign finding(s) - 6 month follow-up suggested RECOMMENDATION: 6 Month F/U This patient's information was entered into a reminder system with a target due date for their next mammogram. Electronically signed by: Josefina Meléndez DO 11/23/2024 11:38 AM EDT
--- OUTSIDE RECORDS SUMMARY | 2024-11-23 11:38 | XMS_ITS ---
Author Name [facility] Organization Unknown Results Test Name/Text Value Interpretation Date Range Source Ref Lab Test Results See Scanned Result 11/12/2024 [facility] N Ref Lab Test Results See Scanned Result 11/12/2024 [facility] N Service Cmnt-Imp Please see [facility] t cytology specimen ([id number]) for more information. Immunohistochemical stains for TTF-1, Napsin-A, and p40 are performed with adequate controls. The tumor is negative for TTF-1 and Napsin-A (weak, patchy), and negative for p40, supporting the above diagnosis. Gonzalez slides have been reviewed at the intradepartmental conference at [place], [place] on 10/22/24. Findings were reported to Dr. Paulette Berman on 10/23/2024 via [employer]. 11/10/2024 [facility] Citation Ref Lab Test The technical components [place] [address] CLIA # [id number] 10/23/2024 [facility] Service Cmnt-Imp [facility] ([id number]) for more information. Findings were reported to Dr. Paulette Berman on 10/23/2024 via [employer]. 10/23/2024 [facility] Clinical Information IN CYTO 10/23/2024 [facility] History of Medication Use Medication Directions Dispensed Refills Start Date End Date Stat us ipratropium-albuter oL (DUONEB) 0.5-2.5 mg/3 mL nebulizer solution 3 mL 3 mL, nebulization, Once as needed, wheezing, Starting on Sat10/21/24 at 1234, For 1 dose, Recovery (only) 10/21/2024 5 completed acetaminophen (TYLENOL) tablet 650 mg 650 mg, oral, Once as needed, mild pain, pain (1-3), Starting on Sat10/21/24 at 1234, For 1 dose, Recovery (only), pain (1-3) 10/21/2024 active dexAMETHasone (DECADRON) injection 4 mg 4 mg, intravenous, Once as needed, nausea and vomitting, Starting on Sat10/21/24 at 1234, For 1 dose, Recovery (only), Administer 2nd unless given in OR 10/21/2024 active HYDROmorphone (DILAUDID) injection 0.2 mg 0.2 mg, intravenous, Every 15 min PRN, moderate pain, severe pain, Starting on Sat10/21/24 at 1234, For 4 doses, Recovery (only), DO NOT EXCEED 2MG 10/21/2024 active HYDROmorphone (DILAUDID) injection 0.5 mg 0.5 mg, intravenous, Every 15 min PRN, severe pain, Starting on Sat10/21/24 at 1234, For 4 doses, Recovery (only), For pain (7-10). 10/21/2024 active meperidine (PF) (DEMEROL) 25 mg/mL injection 12.5 mg 12.5 mg, intravenous, Every 30 min PRN, shivering, Starting on Sat10/21/24 at 1234, For 2 doses, Recovery (only), Infuse over 5 minutes. 10/21/2024 active ondansetron (PF) (ZOFRAN) injection 4 mg 4 mg, intravenous, Once as needed, nausea, vomiting, Starting on Sat10/21/24 at 1234, For 1 dose, Recovery (only), Infuse over 2 minutes. Administer 1st unless given in OR then give dexamethasone 10/21/2024 active orphenadrine (NORFLEX) injection 30 mg 30 mg, intravenous, Once as needed, muscle spasms, Starting on Sat10/21/24 at 1234, For 1 dose, Recovery (only) 10/21/2024 active oxyCODONE (ROXICODONE) immediate release tablet 5 mg 5 mg, oral, Every 4 hours PRN, moderate pain, severe pain, for pain 4-6, Starting on Sat10/21/24 at 1234, For 2 doses, Recovery (only) 10/21/2024 active sodium chloride 0.9 % flush 10 mL [Order 1 Start] Name: Insert peripheral IV Signed Summary: STAT, Once, On Sat10/21/24 at 0949, For 1 occurrence, Preprocedure [Order 1 End] [Order 2 Start] Name: Maintain IV access Signed Summary: Until discontinued, Starting on Sat10/21/24 at 0949, Until Specified, Preprocedure [Order 2 End] [Order 10/21/2024 active metFORMIN XR (GLUCOPHAGE-XR) 500 mg 24 hr tablet Take 1 tablet (500 mg total) by mouth 2 (two) times a day. 07/22/2024 aborted albuterol HFA (PROAIR HFA ; PROVENTIL HFA ; VENTOLIN HFA) 90 mcg/actuation inhaler TAKE 2 PUFFS EVERY 6 HOURS NEEDED FOR SHORTNESS OF BREATH OR WHEEZING FOR 30 DAYS 07/16/2024 active budesonide-formoter oL (SYMBICORT) 160-4.5 mcg/actuation inhaler 2 puffs 2 (two) times a day. 07/16/2024 active ketorolac (ACULAR) 0.5 % ophthalmic solution Administer 1 drop into both eyes 4 (four) times a day. 06/25/2024 active albuterol 2.5 mg /3 mL (0.083 %) nebulizer solution USE WITH NEBULIZER INHALE 1 VIA VIA NEBULIZER TWICE A DAY 06/08/2024 active atorvastatin (LIPITOR) 10 mg tablet Take 1 tablet (10 mg total) by mouth 1 (one) time each day. 04/23/2024 aborted sertraline (ZOLOFT) 50 mg tablet Take 1 tablet (50 mg total) by mouth 1 (one) time each day. 04/23/2024 5 aborted acetaminophen (TYLENOL 8 HOUR) 650 mg 8 hr tablet TOME 1 TABLETA POR V A ORAL EDGAR VECES AL D A CUANDO SEA NECESARIO PARA EL DOLOR 04/23/2024 active albuterol 0.63 mg/3 mL nebulizer solution TAKE 3 ML EVERY 4 TO 6 HOURS FOR 7 DAYS FOR SHORTNESS OF BREATH OR WHEEZING 03/07/2024 active ProAir RespiClick 90 mcg/actuation aerosol powdr breath activated TOME DOS INHALACIONES POR V A ORAL CADA CUATRO HORAS NEEDED FOR SHORTNESS OF BREATH active Problems Problem Status Onset Date Problem Type Date of Resolution Source COPD (chronic obstructive pulmonary disease) ([facility] V24, [facility] V28) active 2024-07-20 ProblemAct [facility] Anemia active 2024-07-30 ProblemAct [facility] Pain active EncounterDiagnosisAct [facility] Pulmonary nodule active 2024-07-20 ProblemAct C [facility] Anemia active 2024-07-30 ProblemAct [facility] COPD (chronic obstructive pulmonary disease) ([facility] V24, [facility] V28) active 2024-07-20 ProblemAct [facility] Pulmonary nodule active 2024-07-20 ProblemAct C T_THS[facility]AN Encounters Encounter Type Encounter Reason Primary Diagnosis Location Date Ambulatory Pain, unspecified Pain, unspecified [facility] 10/21/2024 Ambulatory Solitary pulmonary nodule Solitary pulmonary nodule [facility] 10/21/2024 Care Team Organization Name Specialty Phone Email Start Date End Da te [facility] 10[place]21/2024 [facility] 10/21/2024
--- OUTSIDE RECORDS SUMMARY | 2024-11-23 11:38 | XMS_ITS ---
Author Organization [facility] Address [address] [place] [id number] Phone Care Team Providers Care Treating Inspector Name Role Phone Lindsay Nelson MD Primary Care Provider [phone] Active Problems Problem Noted Date Diagnosed Date Primary lung adenocarcinoma, left (CMS/[facility] V24, CMS/[facility] V28) 11/19/2024 Anemia 07/30/2024 Pulmonary nodule 07/20/2024 Assessment & [...] general and how their size, shape, and change management facilitator time affect her level of suspicion for [...] answered. COPD (chronic obstructive pu lmonary disease) (CMS/[facility] V24, CMS/[facility] V28) 07/20/2024 Carpal tunnel syndrome, left 10/10/2020 Closed Colles' fracture of left radius with kalie nion 10/10/2020 Current Oncology Plans No current plan information found. Past Plans No past plan information found. Radiation Treatments * No radiation treatments are documented for this patient in [facility]. Treatments may have been administered in another system. Lifetime Dose Tracking * Chemical Lifetime Dose Automatic Entry Manual Entr y Fluoro Time 2.57 minutes 2.57 minutes 0 minutes Air Kerma 111.7 mGy 111.7 mGy 0 mGy
== END 2024-11-23 10:37 | disposition home or self-care (01) ==
LOC: HO.MAMMO 10:36
PROVIDERS: PCP Internal Medicine; Visit Provider Internal Medicine
DX: R92.1 Mammographic calcification found on diagnostic imaging of breast (principal)
CPT/HCPCS: 77062; 77065

== ENCOUNTER → 2024-11-23 11:00 | Outpatient (BNV) | payer MEDICARE, MEDICAID, SELFPAY | PROVIDERS: PCP Internal Medicine; Visit Provider Internal Medicine | DX: R92.1 Mammographic calcification found on diagnostic imaging of breast (principal) | CPT/HCPCS: 77065 ==

== ENCOUNTER 2025-01-20 13:32 | Outpatient (REF) | payer MEDICARE, MEDICAID, SELFPAY ==
[2025-01-20 16:00] LABS: Free T4 (Free Thyroxine) 1.06 ng/dL (0.71-1.85); Thyroid Stimulating Hormone 1.28 uIU/mL (0.32-4.0)
== END 2025-01-20 13:33 | disposition home or self-care (01) ==
LOC: HO.LAB 13:32
PROVIDERS: PCP Internal Medicine; Visit Provider Student in an Organized Health Care Education/Training Program
DX: E04.2 Nontoxic multinodular goiter (principal)
CPT/HCPCS: 36415; 84439; 84443; 99202

== ENCOUNTER 2025-01-20 13:32 | Outpatient (AMB) | payer MEDICARE, MEDICAID, SELFPAY ==
[2025-01-20 13:35] VITALS: BP 146/62; PULSE 74; O2SAT 94; BMI 29.1
--- NOTE | 2025-01-20 13:35 | MHC.OFFVIS ---
Vital Signs 01/20/25 13:35 Height 5 ft 4 in Weight 169 lb 8.568 oz BMI 29.1 BP 146/62 H Blood Pressure Location Lt brachial Position Sitting Pulse 74 Pulse Source Pulse Oximeter Pulse Oximetry (%) 94 Oxygen Delivery Method Nasal Cannula Intake Visit Reasons: Multinodualr goiter Intake Note: New patient present today for Multinodualr goiter. Stock Speculator Required: Yes Stock Speculator Language: Senior Mobile Solutions Architect Services: Stock Speculator Offered & Declined Accompanied by: Sister Allergies No Known Allergies Allergy (Verified 01/20/25 13:41) Medication List - Last Reconciled 01/20/25 by Sue Navarro MD albuterol sulfate 2.5 mg (3 mL) inhalation Q6H PRN 30 days albuterol sulfate 90 mcg/actuation 2 inhalations inhalation Q6H PRN 30 days budesonide-formoterol 160-4.5 mcg/actuation (Symbicort) 2 puffs inhalation BID 30 days elemdnozih-xexwcxun-tztwipxsvh 160-9-4.8 mcg/actuation (Breztri Aerosphere) 2 inhalations inhalation BID qsibbqsaben-cnocttbob-qwmocnpo 200-62.5-25 mcg (Trelegy Ellipta) 1 inh inhalation DAILY 30 days miscellaneous medical supply Pulse oximetry as directed every 2 to 3 hours PRN; 30 days nicotine (polacrilex) (Nicorette) 2 mg buccal Q2H 30 days HPI Comments Details: 74-year-old female coming in today for initial evaluation of nontoxic multinodular goiter. Here with sister Mayra. On 3 L o2. She was participating in the lung cancer screening program and CT scan June 2024 showed a concerning nodule in the left upper lobe of the lung for which she had PET scan done in July 2024 which showed a FDG avid left 15 mm thyroid nodule. As far as the lung lesion is concerned, Status post navigation bronchoscopy and EBUS on 07/30/[address] Espinosa which was negative for malignancy, however there was concern for a false negative so she had follow up CT scan in 09/14/2024 which again showed suspicious nodule in the left upper lobe. Status post flexible in robotic bronchoscopy 10/21/2024 which showed adenocarcinoma. Last assessment and plan per intervention about [place] [facility] [place] and PFTs, s/p 5 cycles of radiation finished early January 2025. Treatment happening at [facility]. Ultrasound thyroid 10/12/2024, I reviewed the images myself which showed a left superior 1.1 cm solid hypoechoic TR 4 nodule, a left inferior 3 cm solid hypoechoic TR 4 nodule, this meets criteria for FNA, a right lower pole 0.7 cm solid hypoechoic TR 3 nodule. Patient currently denies heat or cold intolerance, diarrhea or constipation, hair loss, , anxiety, mood changes, low energy, changes in appearance of eyes or vision changes, increased diaphoresis or dry skin. ? Gained 15 lbs since 03/29. Complains of chronic intermittent palpitations and tremors. Patient denies any difficulty swallowing, pain on swallowing or voice changes. Denies having ever used lithium, amiodarone or biotin supplements. Patient denies any family history of thyroid cancer or thyroid disease. Normal TSH from April 2024. Unfortunately she continues to smoke. 1-2 cigarettes a day. Physical exam General: sitting comfortably in no acute distress on O2 via nasal cannula HEENT: normocephalic/atraumatic, Neck: supple, Cardiac: normal heart sounds Pulm: normal breath sounds B/L, no added breath sounds Abd: not distended, no tenderness Laboratory Tests 04/21/24 06:48 TSH 2.89 EXAMINATION: US THYROID 10/12/24 HISTORY: Disorder of thyroid TECHNIQUE: Real-time grayscale ultrasound imaging was performed and images were reviewed. COMPARISON: There are no prior studies available for comparison. FINDINGS: SIZE: The right thyroid lobe measures 5.3 x 1.8 x 2.0 cm. The left thyroid lobe measures 5.7 x 1.8 x 2.5 cm. The isthmus measures 8 mm. FLOW: Flow to the gland is normal. ECHOGENICITY: The echotexture of the gland is heterogeneous. NODULES: Scattered nodules are seen in both thyroid lobes as described below: Nodule #: 1 Location: Upper pole of the left thyroid lobe measuring 1.1 x 0.6 x 0.9 cm. Shape: Wider than tall (0 points) Margins: Smooth (0 points) Echotexture: Hypoechoic (2 points) Composition: Solid (2 points) Calcifications: None (0 points) Total points: 4 TIRADS: TR4: Moderately suspicious. Nodule #: 2 Location: Lower pole of the left thyroid lobe measuring 3.0 x 1.9 x 2.3 cm. Shape: Wider than tall (0 points) Margins: Smooth (0 points) Echotexture: Hypoechoic (2 points) Composition: Solid (2 points) Calcifications: None (0 points) Total points: 4 TIRADS: TR4: Moderately suspicious. Nodule #: 3 Location: Lower pole of the right thyroid lobe measuring 6 x 4 x 7 mm. Shape: Wider than tall (0 points) Margins: Smooth (0 points) Echotexture: Hyperechoic (1 point) Composition: Mostly solid (2 points) Calcifications: None (0 points) Total points: 3 TIRADS: TR3: Mildly suspicious. US/US thyroid IMPRESSION: Multiple bilateral thyroid nodules are identified. As per ACR TI-RADS guidelines below, ultrasound-guided fine-needle aspiration of the dominant nodule at the lower pole of the left thyroid lobe (nodule #2 above) is recommended. [facility] Medical History (Updated 01/20/25 @ 13:43 by Sue Navarro MD) Multinodular goiter (nontoxic) O2 dependent Hyperlipidemia Impaired fasting blood sugar (~2023) Osteopenia (~2011) History of hyperplastic polyp of colon (~2008) Surgical History (Updated 07/13/24 @ 10:42 by Praveen Bradley MD) Nicotine dependence, cigarettes, uncomplicated Chronic hypoxemic respiratory failure COPD (chronic obstructive pulmonary disease) History of appendectomy History of right salpingo-oophorectomy History of colonoscopy Social History Household Members: Family Housing: Apartment Do you presently have visiting nurse or other home services: No Unable to assess alcohol history related to: Unknown Patient Tobacco Use Status: Current everyday Tobacco user Tobacco use type: Cigarette Cigarettes Per Day: 3 Years Smoked: (onset 12yo, 1-2ppd x 62yrs, now 3cig/day - 90pyh) Second Hand Smoke Exposure: No service: No Assessment & Plan Assessment & Plan (1) Multinodular goiter (nontoxic): Code(s): E04.2 - Nontoxic multinodular goiter Category: Medical Plan: 74-year-old female with adenocarcinoma of the left lung status post 5 cycles of radiation in January 2025, with no family history of thyroid cancer, who currently remains an active smoker, coming in today for initial evaluation of nontoxic multinodular goiter. She was participating in the lung cancer screening program and CT scan June 2024 showed a concerning nodule in the left upper lobe of the lung for which she had PET scan done in July 2024 which showed a FDG avid left 15 mm thyroid nodule. Ultrasound thyroid 10/12/2024, I reviewed the images myself which showed a left superior 1.1 cm solid hypoechoic TR 4 nodule, a left inferior 3 cm solid hypoechoic TR 4 nodule, this meets criteria for FNA, a right lower pole 0.7 cm solid hypoechoic TR 3 nodule. I explained that it is common to have thyroid nodules. About 95% of the time these nodules are benign. However if the nodule is > 1 cm in size or suspicious on ultrasound then a fine need aspiration biopsy is recommended. We discussed that a FNAB involves 4-5 passes with a small gauge needle and material obtained is sent off for cytology.If the cytopathology is benign then the nodule will be followed annually with repeat ultrasounds. However if it is suspicious or malignant, we will need to discuss further management. Indeterminate cytology can be further investigated with repeat FNA, genetic testing or empiric lobectomy. Malignant cytology is managed with either lobectomy or total thyroidectomy. We discussed briefly that thyroid cancer is, in most patients, an indolent disease that does not affect mortality. Especially given she had focal FDG activity at the site of the nodule, would recommend biopsy to rule out malignancy. We will arrange for FNA of the left inferior 3 cm thyroid nodule at next available opening and patient will follow up with me in clinic thereafter for results and further decision making. Plan: -ordered TSH and free T4 to be done now -scheduled for FNA of the left inferior 3 cm thyroid nodule and follow up 2 weeks after to discuss results Plan I spent 45 minutes in reviewing the record, seeing the patient and documenting in the medical record. Orders: Orders US biopsy thyroid Today E04.2 - Nontoxic multinodular goiter Thyroid Stimulating Hormone Today E04.9 - Nontoxic goiter, unspecified Free T4 (Free Thyroxine) Today E04.9 - Nontoxic goiter, unspecified Coding Level of Care Code New Pt Level 4 (42610) Diagnoses Multinodular goiter (nontoxic) E04.2 Time Spent (min) 45
== END 2025-01-20 14:18 | disposition home or self-care (01) ==
LOC: HO.ENCR 13:32
PROVIDERS: PCP Internal Medicine; Visit Provider Student in an Organized Health Care Education/Training Program
DX: E04.2 Nontoxic multinodular goiter (principal)
CPT/HCPCS: 99204

== ENCOUNTER 2025-02-26 14:39 | Outpatient (AMB) | payer MEDICARE, MEDICAID, SELFPAY ==
--- OUTSIDE RECORDS SUMMARY | 2025-02-23 13:57 | XMS_ITS | Encounter Summary ---
Author Organization [facility] Address [address] [place] [address] Care Team Providers Care Drip Molder Name Role Phone Lindsay Nelson MD Primary Care Provider [phone] Reason for Referral * Imaging (Routine) - Authorized Specialty Diagnoses / Procedures Referred By Contac t Referred To Contact Radiology Diagnoses Primary lung adenocarcinoma, left (CMS/HCC V24, CMS/HCC V28) Procedures CT Chest wo Contrast Pamella Gonzales NP [address] [place] [address] Phone: tel: fax: [facility] CT Scan [address] [place] [address] Phone: tel: Referral ID Status Reason Start Date Expiration Date V isits Requested Visits Authorized [id number] Authorized 02/23/2025 02/23/2026 1 1 Reason for Visit * Reason Comments Follow-up Encounter Details Date Type Department Care Team (Latest Contact Info) Description 02/23/2025 1:57 PM EDT Hospital Encounter [facility] Radiation Oncology [address] [place] [address] Pamella Gonzales NP [address] [place] [address] Primary lung adenocarcinoma, left (CMS/HCC V24, CMS/HCC V28) (Primary Dx) Social History Tobacco Use Types Packs/Day Years Used Date Smoking Tobacco: Every Day Cigarettes 1 61 Started: 1962 Smokeless Tobacco: Never Comments:Still smoking 0-3 c igs per day Alcohol Use Standard Drinks/Week Comments Never 0 (1 standard drink = 0.6 oz pur e alcohol) Interpersonal Safety Answer Date Record ed Physical Abuse Unrecognized value 10/21/2024 Verbal Abuse Unrecognized value 10/21/2024 Comments No Sex and Gender Information Value Date Recorded Sex Assigned at Female 07/24/2024 8:58 AM EDT Legal Sex Female 9:05 AM EST Gender Identity Female 07/24/2024 8:58 AM EDT Sexual Orientation Straight 07/24/2024 8: 58 AM EDT Occupation Industry Job Start Date Job End Date Retired Not on file Not on file Not on file documented as of this encounter Last Filed Vital Signs Vital Sign Reading Time Taken Comments Blood Pressure 147/66 02/23/2025 2:15 PM EDT Pulse 68 02/23/2025 2:15 PM EDT Temperature 36.1 C (97 F) 02/23/2025 2:15 PM EDT Respiratory Rate 20 02/23/2025 2:15 PM EDT Oxygen Saturation 99% 02/23/2025 2:15 PM EDT Inhaled Oxygen Concentration - - Weight 77.1 kg (170 lb) 02/23/2025 2:15 PM EDT Height 160 cm (5' 3 ) 02/23/2025 2:15 PM EDT Body Mass Index 30.11 02/23/2025 2:15 PM EDT documented in this encounter Progress Notes * Pamella Gonzales NP - 02/23/2025 2:30 PM EDT [address] [phone] RADIATION ONCOLOGY FOLLOW-UP Staff Physician: Pamella Gonzales NP Requesting Physician: No ref. provider found Date of Service: 02/23/2025 Accompanied by: Meredith Diagnosis: 1. Primary lung adenocarcinoma, left (CMS/HCC V24, CMS/HCC V28) Stage: Cancer Staging No matching staging information was found for the patient. Prior treatment: Radiation Therapy: Lung Treatment Period Technique Fraction Dose Fractions Total Dose Course 1 01/05/2025-01/15/2025 (days elapsed: 10) ALEXANDRE 01/05/2025-01/15/2025 SBRT VMAT 1,000 / 1,000 cGy 5 / 5 5,000 / 5,000 cGy HPI: Natalia Spears returns for follow-up evaluation after SBRT to the [facility]. Overall feeling well. She feels very short of breath when she exerts herself which has been ongoing. Nausea has improved. She doesnot have a cough. She denies hemoptysis. She is using 3L of supplemental oxygen. Fatigue is still si gnificant. Will see Dr. Garcia on Saturday. Still smoking about 3 cigarettes a day. HPI ROS: Review of Systems Constitutional: Positive for fatigue. Negative for chills and fever. Respiratory: Positive for shortness of breath. Negative for cough and hemoptysis. Gastrointestinal: Negative for nausea. Medications: Current Medications[1] Imported vital signs, weight Visit Vitals Temp 36.1 ??C (97 ??F) (Temporal) Wt 77.1 kg (170 lb) BMI 30.11 kg/m?? OB Status Postmenopausal Smoking Status Every Day BSA 1.8 m?? No data recorded Physical Exam: Physical Exam Constitutional: General: She is not in acute distress. HENT: Head: Normocephalic. Cardiovascular: Rate and Rhythm: Normal rate. Pulmonary: Effort: Pulmonary effort is normal. No respiratory distress. Comments: Lung sounds clear throughout. On 3L of supplemental oxygen. Neurological: Mental Status: She is alert and oriented to person, place, and time. Mental status is at baseline. Gait: Gait normal. Psychiatric: Mood and Affect: Mood normal. Behavior: Behavior normal. Thought Content: Thought content normal. Judgment: Judgment normal. Impression: Overall doing well after radiation therapy. Will follow-up with Dr. Garcia this Saturday the and Dr. Jaime 04/06/2025 Reviewed interval screening after radiation therapy. Continue medications for respiratory status per Dr. Garcia. Reviewed signs and symptoms to report. Smoking cessation advised. Plan: CT Chest in May with a follow-up after. Electronically signed by Pamella Gonzales NP [1] Current Outpatient Medications: acetaminophen (TYLENOL 8 HOUR) 650 mg 8 hr tablet, TOME 1 TABLETA POR V A ORAL EDGAR VECES AL D A CUANDO SEA NECESARIO PARA EL DOLOR, Disp: , Rfl: albuterol 0.63 mg/3 mL nebulizer solution, TAKE 3 ML EVERY 4 TO 6 HOURS FOR 7 DAYS FOR SHORTNESS OFBREATH OR WHEEZING, Disp: , Rfl: albuterol 2.5 mg /3 mL (0.083 %) nebulizer solution, USE WITH NEBULIZER INHALE 1 VIA VIA NEBULIZER TWICE A DAY, Disp: , Rfl: albuterol HFA (PROAIR HFA ; PROVENTIL HFA ; VENTOLIN HFA) 90 mcg/actuation inhaler, TAKE 2 PUFFS EVERY 6 HOURS NEEDED FOR SHORTNESS OF BREATH OR WHEEZING FOR 30 DAYS, Disp: , Rfl: budesonide-formoteroL (SYMBICORT) 160-4.5 mcg/actuation inhaler, 2 puffs 2 (two) times a day., Disp: , Rfl: ketorolac (ACULAR) 0.5 % ophthalmic solution, Administer 1 drop into both eyes 4 (four) times a day., Disp: , Rfl: ProAir RespiClick 90 mcg/actuation aerosol powdr breath activated, TOME DOS INHALACIONES POR V A ORAL CADA CUATRO HORAS NEEDED FOR SHORTNESS OF BREATH, Disp: , Rfl: documented in this encounter Plan of Treatment Upcoming Encounters Date Type Department Care Team (Late st Contact Info) Description 04/06/2025 11:30 AM EST Office Visit [facility] Hematology Oncology [address] [place] [phone] Aamir Jaime MD [address] [place] [address] 05/28/2025 9:30 AM EST Appointment [facility] Radiation Oncology [address] [place] [phone] Pamella Gonzales NP [address] [place] [address] Scheduled Orders Name Type Priority Associated Diagnoses Orde r Schedule CT Chest wo Contrast Imaging Routine Primary lung adenocarcinoma, left (CMS/HCC V24, CMS/HCC V28) Expected: 05/17/2025, Expires: 02/23/2026 documented as of this encounter Visit Diagnoses Diagnosis Primary lung adenocarcinoma, left ([facility] V24, [facility] V28)- Primary documented in this encounter Care Teams Drip Molder Relationship Specialty Start Date End Date Lindsay Nelson MD [address] [place] [address] [place] [address] PCP - General Internal Medicine 07/20/24 ISAURA Dill Physician Supervisor Cd Area 06/26/24 documented as of this encounter
[2025-02-26 14:41] VITALS: BP 130/50; PULSE 70; O2SAT 96; BMI 29.3
--- NOTE | 2025-02-26 14:41 | A.OFFVIS_ITS ---
Vital Signs 02/26/25 14:41 Height 5 ft 4 in Weight 170 lb 13.732 oz BMI 29.3 BP 130/50 L Blood Pressure Location Lt brachial Position Sitting Pulse 70 Pulse Source Pulse Oximeter Pulse Oximetry (%) 96 Oxygen Delivery Method Nasal Cannula Oxygen Flow Rate 3 Intake Visit Reasons: COPD Field Insurance Sales Manager Required: No Field Insurance Sales Manager Services: Field Insurance Sales Manager Offered & Declined Field Insurance Sales Manager Name: MD speaks guinean Accompanied by: Self / Same As Patient Allergies No Known Allergies Allergy (Verified 02/26/25 14:45) HPI Comments Details: The patient is a 74 year woman with known history tobacco dependency and COPD. The patient has been struggling now for more than a year with worsening shortness of breath. She does have an oximeter in the house and sometimes her oxygen drops to the 70s. She has been trying to get oxygen but is been hard for her to do so. The patient has been on Trelegy inhaler. She also has a nebulizer. Although is very old more than 5 years that she brought from [place]. She has not been able to get any supplies for it. Is no longer working appropriately were not providing enough air pressure. At this point the nebulizer is broken beyond repair will request a replacement. The patient did go for walking oximetry in the office. She did desaturate down to about 86% with activity. We did place her on a portable oxygen concentrator at 3 L pulsing we are able to maintain a pulse ox of 93% with activity. Therefore, she qualifies for a POC with activity in this provide her with better portability outside of the home. Patient understands that she needs to quit smoking. She is still smoking about 4 cigarettes a day. She is willing to try the Nicorette gum. She understands that she should not be smoking especially with the oxygen home. In addition to that the patient is interested in participating in the lung cancer screening program. She did have an x-ray back in March demonstrating some evidence of peribronchial cuffing in bronchitis he can also have possibly have some bronchiectasis. The patient will come back in a couple months with PFTs. If she has any issues prior to that she will call for an earlier assessment. Operative should be setting up her oxygen getting her nebulizer. 07/24/2024 the patient is here for pulmonary follow-up visit. Overall she is doing okay. She continues on the Trelegy inhaler. She continues use her oxygen supplementation with good effect. She has a POC now. In the meantime she is participating in the lung cancer screening program. She had an concerning nodule in the left upper lobe. She underwent a PET scan demonstrating avid nodule concerning for cancer. Therefore she was referred to thoracic surgery and also underwent PFTs. Her PFTs demonstrate moderate to severe COPD. Her DLCO was 40%. I did explain to her that she does have emphysema in the upper lung zones. The patient did undergo a the initial evaluation thoracic surgery and has a plan bronchoscopy for next week. I did encourage her to keep that appointment and then hopefully will get a diagnosis and ultimately surgical resection would be important if this is a malignant process for curative intent. 10/07/2024 the patient is here for pulmonary follow-up visit. Overall she is doing okay. Unfortunately she continues to smoke cigarettes. She is using her oxygen with good effect. She did follow-up with thoracic surgery and is planned to undergo a repeat bronchoscopy likely robotic bronchoscopy at [facility] and likely will have a biopsy. Based on the biopsy then further intervention will be discussed. For now she needs to work on the smoking. I did offer her Chantix. She is going to try to quit cold turkey. She continues her respiratory therapy as prescribed. Therefore will continue with current regimen continue the oxygen will follow-up with the biopsy results from interventional pulmonary. 02/26/2025 the patient is here for pulmonary follow-up visit. The patient overall has been doing okay. She did undergo her robotic bronchoscopy and was diagnosed with lung cancer. She was deemed not a surgical candidate and the patient did start SBRT therapy. The patient tolerated it well. She is following closely with Interventional Pulmonary and thoracic surgery at [facility]. She will likely have serial CAT scans at this time for any progression of disease or any recurrence. The patient needs to quit smoking. She is down to about 2 cigarettes a day. She will try the Nicotrol nasal spray and she can also try Wellbutrin. I will send a script to the pharmacy. In the meantime she does complaint of dyspnea on exertion [id number] severity. She is using her rescue inhaler often. She is supposed to be on Trelegy but for some reason she is not I will send to the pharmacy at this time. If she can not get it she is to call me so I can make sure to send her something else. Will follow-up sometime in 6 months if she has any issues prior to this she can always call for an earlier assessment. [facility] Medical History (Updated 01/20/25 @ 13:43 by Sue Navarro MD) Multinodular goiter (nontoxic) O2 dependent Hyperlipidemia Impaired fasting blood sugar (~2023) Osteopenia (~2011) History of hyperplastic polyp of colon (~2008) Surgical History Nicotine dependence, cigarettes, uncomplicated Chronic hypoxemic respiratory failure COPD (chronic obstructive pulmonary disease) History of appendectomy History of right salpingo-oophorectomy History of colonoscopy Social History Household Members: Family Housing: Apartment Do you presently have visiting nurse or other home services: No Patient Tobacco Use Status: Current everyday Tobacco user Tobacco use type: Cigarette Cigarettes Per Day: 3 Years Smoked: (onset 12yo, 1-2ppd x 62yrs, now 3cig/day - 90pyh) Second Hand Smoke Exposure: No service: No Review of Systems Const Denies fever(s) Eyes Reports no additional complaints ENT Reports nasal congestion Card Denies chest pain and Reports dyspnea on exertion Resp Reports chest congestion, Reports cough, Reports dyspnea on exertion and Reports wheezing GI Reports no additional complaints Musc Reports abnormal gait and Reports myalgias Skin/Breast Denies rash Neuro Reports abnormal gait Tomás/Lymph Reports no additional complaints Aller/Immun Reports wheezing Physical Exam Vital Signs: Last Vital Signs Pulse 70 02/26/25 14:41 BP 130/50 L 02/26/25 14:41 Pulse Ox 96 02/26/25 14:41 Oxygen Delivery Method Nasal Cannula 02/26/25 14:41 Oxygen Flow Rate 3 02/26/25 14:41 BMI result Body Mass Index 29.3 Const General: comfortable HEENT Head: Yes normocephalic Neck Neck: Yes supple Chest Chest palpation & inspection: normal inspection of the chest Resp Effort & Inspection: normal respiratory effort Auscultation: diminished lung sounds Cardio Heart sounds: S1 normal heart sound present and S2 normal heart sound present GI Palpation (GI): Soft to palpation Skin General skin exam: no rashes or lesions noted Extrem General: No cyanosis Assessment & Plan Assessment & Plan (1) COPD (chronic obstructive pulmonary disease): Code(s): J44.9 - Chronic obstructive pulmonary disease, unspecified Category: Surgical Qualifiers: COPD type: chronic bronchitis Chronic bronchitis type: mixed simple and mucopurulent Qualified Code(s): J41.8 - Mixed simple and mucopurulent chronic bronchitis (2) Chronic hypoxemic respiratory failure: Code(s): J96.11 - Chronic respiratory failure with hypoxia Category: Surgical (3) Smoker: Code(s): F17.200 - Nicotine dependence, unspecified, uncomplicated Category: Social Hx (4) Left upper lobe pulmonary nodule: Comment: (Spiculated ALEXANDRE nodule 1.8 x 1.0 x 1.0 cm - noted on 06/26/24 LDCT) Code(s): R91.1 - Solitary pulmonary nodule Category: Surgical Plan continue Trelegy 200 daily MITA as needed duoneb BID F/U with Thoracic surgery, s/p SBRT tobacco cessation: needs to quit. Will start Wellbutrin and nicotrol ns Continue oxygen supplementatio: POC 3l/pulse with activity, 2l/min while sleeping. F/U 4-6 months Medications: New nicotine (Nicotrol NS) administer into each nostril 1 spray intranasal Q2H PRN 40 mL 3RF nicotine cravings 30 days bupropion HCl 150 mg (2 x 75 mg) PO BID 120 tabs 6RF 30 days aioerqmyurb-ogzschziz-tbqdipfz 200-62.5-25 mcg (Trelegy Ellipta) 1 inh inhalation DAILY 60 ea 12RF 30 days Coding Level of Care Code Est Pt Level 4 (45786) Complex EM visit Add On G2211 Diagnoses Mixed simple and mucopurulent chronic bronchitis J41.8 COPD type: chronic bronchitis Chronic bronchitis type: mixed simple and mucopurulent Chronic hypoxemic respiratory failure J96.11 Smoker F17.200 Left upper lobe pulmonary nodule R91.1 Time Spent (min) 17
--- OUTSIDE RECORDS SUMMARY | 2025-02-26 16:25 | XMS_ITS | Encounter Summary ---
Author Organization [facility] Address [address] [place] [address] Care Team Providers Care Training And Development Professional Name Role Phone Lindsay Nelson MD Primary Care Provider [phone] Encounter Details Date Type Department Care Team (Late Contact Info) Description 02/03/2025 Results Follow-Up Pulmonology - [address] [phone] Paulette Berman MD [address] [place] [phone] Social History Tobacco Use Types Packs/Day Years [...] as of this encounter Plan of Treatment Upcoming Encounters Date Type Department Care Team (Late Contact Info) Description 04/06/2025 11:30 AM EST Office Visit [facility] Hematology Oncology [address] [place] [phone] Aamir Jaime MD [address] [place] [address] 05/28/2025 9:30 AM EST Appointment [facility] Radiation Oncology [address] [place] [phone] Pamella Gonzales NP [address] [place] [address] documented as of this encounter Visit Diagnoses Not on filedocumented in this encounter Care Teams Training And Development Professional Relationship Specialty Start Date End Date Lindsay Nelson MD [address] [place] [address] [place] [address] PCP - General Internal Medicine 07/20/24 ISAURA Dill Physician Outdoor Advertising Leasing Agent 06/26/24 documented as of this encounter
--- OUTSIDE RECORDS SUMMARY | 2025-02-26 16:26 | XMS_ITS | Clinical Summary ---
Author Organization [facility] Address [address] [place] [phone] Phone Care Team Providers Care It Applications Manager Name Role Phone Lindsay Nelson MD Primary Care Provider [phone] Allergies No known active allergies Medications acetaminophen [...] HORAS NEEDED FOR SHORTNESS OF BREATH Active budesonide-form oteroL (SYMBICORT) 160-4.5 mcg/actuation inhaler 2 puffs 2 (two) times a day. 5 Active ketorolac (ACULAR) 0.5 % ophthalmic solution Administer 1 drop into both eyes 4 (four) times a day. 5 Active Active Problems Problem Noted Date Diagnosed Date Primary lung adenocarcinoma, left (CMS/HCC V24, CMS/HCC V28) 11/19/2024 Anemia 07/30/2024 Pulmonary nodule 07/20/2024 [...] general and how their size, shape, and foreign exchange dealer time affect her level of suspicion for [...] answered. COPD (chronic obstructive pu lmonary disease) (CMS/HCC V24, CMS/HCC V28) 07/20/2024 Carpal tunnel syndrome, left 10/10/2020 Closed Colles' fracture of left radius with kalie nion 10/10/2020 Encounters Date Type Department Care Team Description 02/23/2025 1:57 PM EDT Hospital Encounter [facility] Radiation Oncology [address] [place] [phone] Pamella Gonzales NP Primary lung adenocarcinoma, left (CMS/HCC V24, CMS/HCC V28) (Primary Dx) 02/03/2025 Results Follow-Up Pulmonology - [address] [phone] Paulette Berman MD 01/29/2025 9:51 AM EDT - 01/29/2025 11:59 PM EDT Hospital Encounter [facility] Ultrasound [address] [place] [phone] Thyroid nodule Discharge Disposition: Home or Self Care 01/15/2025 11:05 AM EDT - 01/15/2025 11:59 PM EDT Hospital Encounter [facility] Radiation Oncology [address] [place] [phone] Ирина Patterson MD Primary lung adenocarcinoma, left (CMS/HCC V24, CMS/HCC V28) (Primary Dx) Discharge Disposition: Home or Self Care 01/15/2025 11:00 AM EDT - 01/15/2025 11:59 PM EDT Hospital Encounter [facility] Radiation Oncology [address] [place] [phone] Ирина Patterson MD Discharge Disposition: Home or Self Care 01/14/2025 [facility] [address] [phone] Yanna Rowley [place] 01/13/2025 11:00 AM EDT - 01/13/2025 11:59 PM EDT Hospital Encounter [facility] Radiation Oncology [address] [place] [phone] Ирина Patterson MD Discharge Disposition: Home or Self Care 01/12/2025 11:30 AM EDT Office Visit [facility] Hematology Oncology [address] [place] [phone] Aamir Jaime MD Primary lung adenocarcinoma, left (CMS/HCC V24, CMS/HCC V28) (Primary Dx) 01/11/2025 10:56 AM EDT - 01/11/2025 11:59 PM EDT Hospital Encounter [facility] Radiation Oncology [address] [place] [phone] Ирина Patterson MD Discharge Disposition: Home or Self Care 01/07/2025 2:03 PM EDT - 01/07/2025 11:59 PM EDT Hospital Encounter [facility] Radiation Oncology [address] [place] [phone] Ирина Patterson MD Discharge Disposition: Home or Self Care 01/05/2025 2:06 PM EDT - 01/05/2025 11:59 PM EDT Hospital Encounter [facility] Radiation Oncology [address] [place] [phone] Ирина Patterson MD Discharge Disposition: Home or Self Care 12/23/2024 10:09 AM EDT - 12/23/2024 11:59 PM EDT Hospital Encounter [facility] Radiation Oncology [address] [place] [phone] Discharge Disposition: Home or Self Care 12/16/2024 11:00 AM EDT - 12/16/2024 11:59 PM EDT Hospital Encounter [facility] Radiation Oncology [address] [place] [phone] Sergey Russell MD Primary lung adenocarcinoma, left (CMS/HCC V24, CMS/HCC V28) Discharge Disposition: Home or Self Care 12/16/2024 9:51 AM EDT - 12/16/2024 11:59 PM EDT Hospital Encounter [facility] Radiation Oncology [address] [place] [phone] Primary lung adenocarcinoma, left (CMS/HCC V24, CMS/HCC V28) (Primary Dx) Discharge Disposition: Home or Self Care 11/30/2024 7:08 AM EDT - 11/30/2024 11:59 PM EDT Hospital Encounter [facility] Pulmonary [address] [place] [phone] Pulmonary nodule; Primary lung adenocarcinoma, left (CMS/HCC V24, CMS/HCC V28) Discharge Disposition: Home or Self Care 11/26/2024 8:48 AM EDT - 11/26/2024 11:59 PM EDT Hospital Encounter [facility] PET Scan [address] [place] [phone] Primary lung adenocarcinoma, left (CMS/HCC V24, CMS/HCC V28); Malignant neoplasm of overlapping sites of left bronchus and lung (CMS/HCC V24, CMS/HCC V28) Discharge Disposition: Home or Self Care from Last 3 Months Surgical History Surgery Date Site/Laterality Comments APPENDECTOMY PROCEDURE: MS APPENDECTOMY OTHER SURGICAL HISTORY EYE SURGERY CATARACT EXTRACTION HYSTERECTOMY BRONCHOSCOPY 07/30/202407/30 Navigational bronchoscopy/EBUS with biopsies Medical History Medical History Date Comments Asthma DX:Asthma Osteoporosis DX:Osteoporosis Osteoarthritis DX:Osteoarthriti s Hyperlipidemia DX:Hyperlipidemi a COPD (chronic obstructive pu lmonary disease) ([facility] [place], [facility] V28) Pulmonary nodule Joint pain 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 n Diabetes mellitus ([facility] [place]24, [facility] V28) Family History Medical History Relation Name Comments Esophageal cancer Mother Bone cancer Other 1 Mat aunt Uterine cancer Other 2 Mat aunt Relation Name Status Comments Mother Other 1 Mat aunt Alive Other 2 Mat aunt Alive Social History Tobacco Use Types Packs/Day Years Used Date Smoking Tobacco: Every Day Cigarettes 1 61 Started: 1962 Smokeless Tobacco: Never Tobacco Cessation:Ready to Q uit: Not Asked; Counseling Given: Not Answered Comments:Still smoking 0-3 cigs per day Alcohol Use Standard Drinks/Week Comments [...] file Not on file Not on file Obstetrics History Last Filed Vital Signs Vital [...] Mass Index 30.11 02/23/2025 2:15 PM EDT Plan of Treatment Upcoming Encounters Date Type Department Care Team (Late st Contact Info) Description 04/06/2025 11:30 AM EST Office Visit [facility] Hematology Oncology [address] [place] [phone] Aamir Jaime MD [address] [place] [address] 05/28/2025 9:[address] [facility] Radiation Oncology [address] [place] [phone] Pamella Gonzales NP [address] [place] [address] Health Maintenance Due Date Last Done Comments Breast Cancer Screening 1950 Colorectal Cancer Screening: Colonoscopy 1950 COVID-19 Vaccine (#1) 1955 DTaP,Tdap,and Td Vaccines (1 - Tdap) 1969 Zoster Vaccines (1 of 2) 1969 RSV Immunization Adult Patie nts (1 - Risk 50-74 years 1-dose series) 2000 Depression Screening 05/06/2024 Cholesterol Screening (Lipid Panel) 07/09/2024 Hepatitis C Screening 07/09/2024 Lung Cancer Screening (Low D ose CT) 07/09/2024 Medicare Annual Wellness Visit 07/09/2024 Osteoporosis Screening (Bone Density Screening) 07/09/2024 Social Influencers of Health Screening 07/09/2024 Influenza Vaccine (#1) 2025 03/17/2024 Falls Risk Assessment 10/21/2025 10/21/2024 Pneumococcal Vaccine: 50+ Years Completed HIB Vaccines [...] Procedure Name Priority Date/Time Associated Diagnosis Comments US BX NDL THYROID PERC Routine 11:38 AM EDT Thyroid nodule FINE NEEDLE ASPIRATION Routine 11:07 AM EDT Thyroid nodule EXTERNAL ULTRASOUND REPORT Routine 01/21/2025 10:40 AM EDT RAD ONC MSQ TREATMENT SUMMARY Routine 01/15/2025 11:08 AM EDT RAD ONC MSQ TREATMENT SUMMARY Routine 01/13/2025 11:20 AM EDT RAD ONC MSQ TREATMENT SUMMARY Routine 01/11/2025 11:26 AM EDT RAD ONC MSQ TREATMENT SUMMARY Routine 01/07/2025 2:31 PM EDT HC SPIROMETRY BRONCHODILATION RESPONSIVENESS PRE/POST BRONCHODILATOR ADMINISTRATION Routine 11/30/2024 8:20 AM EDT Pulmonary nodule Primary lung adenocarcinoma, left (CMS/HCC V24, CMS/HCC V28) PET CT SKULL TO MID THIGH SUBSEQUENT Routine 11/26/2024 10:43 AM EDT Primary lung adenocarcinoma, left (CMS/HCC V24, CMS/HCC V28) Malignant neoplasm of overlapping sites of left bronchus and lung (CMS/HCC V24, CMS/HCC V28) from Last 3 Months Results * US Bx Ndl Thyroid Perc (01/29/2025 11:38 AM EDT) Anatomical Region Laterality Modality Head and Neck Ultrasound 01/29/2025 5:39 PM EDT Narrative 01/29/2025 5:40 PM EDT INDICATION: Thyroid nodule. Technique: Written informed consent was obtained. Patient was laid supine on the ultrasound stretcher and multiple images were obtained of the thyroid gland. Prior imaging was reviewed. The appropriate area of the skin was draped and prepped in the usual sterile fashion. 2% buffered lidocaine was used as a local anesthetic. Under real-time ultrasound guidance a 22-gauge needle was advanced into the nodule in the lower left lobe. A total of 3 passes were obtained with samples sent to pathology for evaluation. Preliminary results demonstrate adequate sampling. Final pathologic results are pending. The patient tolerated the procedure well and left the department in stable condition without immediate complications. FINDINGS: Approximately 3 cm left lower pole nodule with both isoechoic and hypoechoic components localized for biopsy. This nodule similar to the prior outside diagnostic thyroid ultrasound study from October 12, 2024. CONCLUSION: Ultrasound-guided fine needle aspiration biopsy of dominant left lower pole thyroid nodule. -------- FINAL REPORT -------- Dictated By: Zhang Hatfield Dictated Date: 01/29/2025 17:39 ET Assigned Physician: Zhang Hatfield Reviewed and Electronically Signed By: Zhang Hatfield Signed Date: 01/29/2025 17:40 ET Workstation ID: [id number] Transcribed By: Self Edit Transcribed Date: 01/29/2025 17:39 ET Procedure Note Zhang Hatfield MD - 01/29/2025 INDICATION: Thyroid nodule. Technique: Written informed consent was obtained. Patient was laid supineon the ultrasound stretcher and multiple images were obtained of thethyroid gland. Prior imaging was reviewed. The appropriate area of the skin was draped and prepped in the usualsterile fashion. 2% buffered lidocaine was used as a local anesthetic.Under real-time ultrasound guidance a 22-gauge needle was advanced intothe nodule in the lower left lobe. A total of 3 passes were obtained withsamples sent to pathology for evaluation. Preliminary results demonstrateadequate sampling. Final pathologic results are pending. The patienttolerated the procedure well and left the department in stable conditionwithout immediate complications. FINDINGS: Approximately 3 cm left lower pole nodule with both isoechoicand hypoechoic components localized for biopsy. This nodule similar to theprior outside diagnostic thyroid ultrasound study from October 12, 2024. CONCLUSION: Ultrasound-guided fine needle aspiration biopsy of dominant left lowerpole thyroid nodule. -------- FINAL REPORT -------- Dictated By: Zhang Hatfield Dictated Date: 01/29/2025 17:39 ET Assigned Physician: Zhang Hatfield Reviewed and Electronically Signed By: Zhang Hatfield Signed Date: 01/29/2025 17:40 ET Workstation ID: [id number] Transcribed By: Self Edit Transcribed Date: 01/29/2025 17:39 ET us Paulette Berman MD IMG US PROCEDURES Final Re sult * Fine needle aspiration (01/29/2025 11:07 AM EDT) Final Diagnosis A. Thyroid, left, fine needle aspiration, (ThinPrep, direct smears): Benign (Ellerbe Category II). Consistent with follicular nodular disease 02/01/2025 1:[address] [facility] at 1349 EDT Specimen A Adequacy Satisfactory for evaluation 02/01/2025 1:[address] [facility] Gross Description A. Thyroid, left throid nodule fna: Received in Cytolyt is 30 ml of pink fluid. One ThinPrep is made. Also received are three air dried direct smears, and three alcohol fixed smears. rp 02/01/2025 1:[address] [facility] Intraoperative Consultation A. Thyroid, left throid nodule fna: FNA - ADEQUATE JS 02/01/2025 1:[address] [facility] Disclaimer Unless otherwise specified, all tissue is 10% NB formalin fixed and paraffin embedded. Technical cytopathology services provided by [facility], at [address] [place] [id number] (CLIA # [id number]/Abhishek Milan MD, Model Set Artist.) 02/01/2025 1:[address] [facility] Fine Needle Aspirate Thyroid structure / Unknown 01/29/2025 11:07 AM EDT 01/29/2025 11:32 AM EDT us Zhang Hatfield MD LAB PATHOLOGY ORDERABLES Final Result [facility] [address] [place] [address], [place] [phone] * External Ultrasound Report (01/21/2025 10:40 AM EDT) Anatomical Region Laterality Modality Ultrasound us Historical Provider IMG US PROCEDURES Final R esult * Rad Onc Msq Treatment Summary (01/15/2025 11:08 AM EDT) Pathologist [facility] MOSAI Q RADIATION ONCOLOGY Course Number 1 MOSAIQ RADIATION ONCOLOGY Prescribed Fractional Dose 1,000 cGray MOSAIQ RADIATION ONCOLOGY Prescribed Total Dose 5,000 cGray MOSAIQ RADIATION ONCOLOGY Actual Fractions Delivered 5 MOSAIQ RADIATION ONCOLOGY Actual Session Delivered Dose 1,000 cGray MOSAIQ RADIATION ONCOLOGY Actual Total Dose 5,000 cGray MOSAIQ RADIATION ONCOLOGY Prescribed Technique SBRT VMAT MOS[facility]Q RADIATION ONCOLOGY Elapsed Days 10 MOS[facility]Q RADIATION ONCOLOGY Start Date 01/05/2025 MOSAIQ RADIATION ONCOLOGY Last Date 01/15/2025 [facility] RADIATION ONCOLOGY Prescribed Number of Fractions 5 MOSAIQ RADIATION ONCOLOGY 01/15/2025 11:0 8 AM EDT Physician Radiation Oncology RADIATION ONCOLO GY ORDERABLES Final Result MOSAI[facility] RADIATION ONCOLOGY * Rad Onc Msq Treatment Summary (01/13/2025 11:20 AM EDT) Pathologist [facility] MOSAI Q RADIATION ONCOLOGY Course Number 1 MOSAIQ RADIATION ONCOLOGY Prescribed Fractional Dose 1,000 cGray MOSAIQ RADIATION ONCOLOGY Prescribed Total Dose 5,000 cGray MOSAIQ RADIATION ONCOLOGY Actual Fractions Delivered 4 MOSAIQ RADIATION ONCOLOGY Actual Session Delivered Dose 1,000 cGray MOSAIQ RADIATION ONCOLOGY Actual Total Dose 4,000 cGray MOSAIQ RADIATION ONCOLOGY Prescribed Technique SBRT VMAT [facility] RADIATION ONCOLOGY Elapsed Days 8 MOSAIQ RADIATION ONCOLOGY Start Date 01/05/2025 MOSAIQ RADIATION ONCOLOGY Last Date 01/13/2025 MOSAIQ RADIATION ONCOLOGY Prescribed Number of Fractions 5 MOSAIQ RADIATION ONCOLOGY 01/13/2025 11:2 0 AM EDT Physician Radiation Oncology RADIATION ONCJOSELIN GY ORDERABLES Final Result [facility] RADIATION ONCOLOGY * Rad Onc Msq Treatment Summary (01/11/2025 11:26 AM EDT) Treatment Site [facility] MOSAI Q RADIATION ONCOLOGY Course Number 1 MOSAIQ RADIATION ONCOLOGY Prescribed Fractional Dose 1,000 cGray MOSAIQ RADIATION ONCOLOGY Prescribed Total Dose 5,000 cGray MOSAIQ RADIATION ONCOLOGY Actual Fractions Delivered 3 MOSAIQ RADIATION ONCOLOGY Actual Session Delivered Dose 1,000 cGray MOSAIQ RADIATION ONCOLOGY Actual Total Dose 3,000 cGray MOSAIQ RADIATION ONCOLOGY Prescribed Technique SBRT VMAT MOS[facility]Q RADIATION ONCOLOGY Elapsed Days 6 MOSAIQ RADIATION ONCOLOGY Start Date 01/05/2025 MOSAIQ RADIATION ONCOLOGY Last Date 01/11/2025 MOSAIQ RADIATION ONCOLOGY Prescribed Number of Fractions 5 MOSAIQ RADIATION ONCOLOGY 01/11/2025 11:2 6 AM EDT Physician Radiation Oncology RADIATION ONCJOSELIN GY ORDERABLES Final Result MOSAIQ RADIATION ONCOLOGY * Rad Onc Msq Treatment Summary (01/07/2025 2:31 PM EDT) Treatment Site [facility] MOSAI Q RADIATION ONCOLOGY Course Number 1 MOSAIQ RADIATION ONCOLOGY Prescribed Fractional Dose 1,000 cGray MOSAIQ RADIATION ONCOLOGY Prescribed Total Dose 5,000 cGray MOSAIQ RADIATION ONCOLOGY Actual Fractions Delivered 2 MOSAIQ RADIATION ONCOLOGY Actual Session Delivered Dose 1,000 cGray MOSAIQ RADIATION ONCOLOGY Actual Total Dose 2,000 cGray MOSAIQ RADIATION ONCOLOGY Prescribed Technique SBRT VMAT MOSAIQ RADIATION ONCOLOGY Elapsed Days 2 MOSAIQ RADIATION ONCOLOGY Start Date 01/05/2025 MOSAIQ RADIATION ONCOLOGY Last Date 01/07/2025 MOSAIQ RADIATION ONCOLOGY Prescribed Number of Fractions 5 MOSAIQ RADIATION ONCOLOGY 01/07/2025 2:31 PM EDT Physician Radiation Oncology RADIATION ONCOLO GY ORDERABLES Final Result [facility] RADIATION ONCOLOGY * Pulmonary function testing: Carbon Monoxide Diffusing Capacity, Nitrogen Wash Out, Spirometry with Bronchodilator (11/30/2024 8:20 AM EDT) Narrative Earnest Kemp MD - 11/30/2024 10:45 AM EDT Table formatting from the original result was not included. Images from the original result were not included. [facility] [address] [place] [id number] Pulmonary Functions Report Date of service: 11/30/24 Patient Name: Kimberly Spears Date of : Age: 74 y.o. Gender: female Ordering Provider: Paulette Berman MD Diagnosis listed on Order: Pulmonary nodule, Primary lung adenocarcinoma, left ([facility] V24, [facility] V28) Reason for Exam: Order Questions Answers Reason for Exam: copd Which PFTs would you like to perform? Carbon Monoxide Diffusing Capacity,Nitrogen Wash Out,Spirometry with Bronchodilator Pulmonary function test interpretation. Spirometry reveals FEV1 of 0.72 which is 38% of the predicted value, FVC is 1.39 which is 54.5% of the predicted value, FEV1 to FVC ratio 66% of the predicted value, there is no bronchodilator response. Flow-volume loop is consistent with obstructive pattern. Static lung volumes: Total lung capacity is moderately reduced. Diffusion lung capacity is severely reduced and remains severely reduced after correction for alveolar volume. This study is consistent with severe obstructive lung disease without bronchodilator response along with concomitant moderate restrictive lung disease for which clinical correlation is advised. Electronically Signed Earnest Kemp MD Paulette Berman MD PFT ORDERABLES Final Resu lt * PET CT Skull to Mid Thigh Subsequent (11/26/2024 10:43 AM EDT) Anatomical Region Laterality Modality Body Radiographic Malina ging 12/07/2024 4:57 AM EDT Impressions 12/07/2024 5:30 AM EDT 1. Interval increase in FDG activity within left upper lobe pulmonary nodule in keeping with biopsy-proven lung malignancy 2. No FDG avid lymphadenopathy or osseous lesions 3. Nonspecific new mild FDG activity involving the left adrenal gland Please note: The CT was acquired at a low radiation dose settings. The images are of nondiagnostic quality and used solely for purposes of attenuation correction and slice localization for the PET scan. If a diagnostic CT study is desired it must be ordered separately. -------- FINAL REPORT -------- Dictated By: Lyla Jackson Dictated Date: 12/07/2024 04:57 ET Assigned Physician: Lyla Jackson Reviewed and Electronically Signed By: Lyla Jackson Signed Date: 12/07/2024 05:30 ET Workstation ID: [id number] Transcribed By: Self Edit Transcribed Date: 12/07/2024 04:57 ET Narrative 12/07/2024 5:30 AM EDT INDICATION: Left upper lobe prior biopsy demonstrating adenocarcinoma. Pretreatment planning. TECHNIQUE: FDG PET-CT imaging was performed from [...] not a true diagnostic CT examination. DLP: 583 mGy-cm Radiopharmaceutical: 10.3 mCi of F-18 FDG IV. Blood glucose: 93 mg/dl. COMPARISON: Prior PET/CT July [address] September 2024 FINDINGS: HEAD AND NECK: Persistent asymmetric activity within low-attenuation lesion in the left thyroid lobe SUV max 3.5 (correlation with outside thyroid ultrasound from October 2024 is suggested). THORAX: Left upper lobe nodule SUV max 6.8 (previously 3.6). Other smaller pulmonary nodules not demonstrating significant FDG activity due to size. No significant FDG avid thoracic or axillary lymphadenopathy. For example, right paratracheal lymph node SUV max 1.9 (mediastinal blood pool SUV Max 3.2). ABDOMEN/PELVIS: Nonspecific mild FDG activity involving the left adrenal gland SUV max 2.2 (previously 1.2 on 07/2024; contralateral right SUV max 1.1). Nonspecific bowel activity. Left adnexal lesion without significant FDG activity. MUSCULOSKELETAL: No abnormal FDG activity. Bilateral common hamstring origin tendinosis with associated FDG activity. Procedure Note Lyla Jackson MD - 12/07/2024 INDICATION: Left upper lobe prior biopsy demonstrating adenocarcinoma.Pretreatment planning. TECHNIQUE: FDG PET-CT imaging was performed from the skull bases throughthe thighs in a single acquisition with data set reconstructed in axial,coronal, and sagittal planes at the computer workstation with fused datafrom both the PET imaging study and attenuation correction CT. The CTportion of the examination was done strictly for attenuation correctionand is not a true diagnostic CT examination. DLP: 583 mGy-cm Radiopharmaceutical: 10.3 mCi of F-18 FDG IV. Blood glucose: 93 mg/dl. COMPARISON: Prior PET/CT July [address] September 2024 FINDINGS: HEAD AND NECK: Persistent asymmetric activity within low-attenuationlesion in the left thyroid lobe SUV max 3.5 (correlation with outsidethyroid ultrasound from October 2024 is suggested). THORAX: Left upper lobe nodule SUV max 6.8 (previously 3.6). Othersmaller pulmonary nodules not demonstrating significant FDG activity dueto size. No significant FDG avid thoracic or axillary lymphadenopathy. Forexample, right paratracheal lymph node SUV max 1.9 (mediastinal blood poolSUV Max 3.2). ABDOMEN/PELVIS: Nonspecific mild FDG activity involving the left adrenalgland SUV max 2.2 (previously 1.2 on 07/2024; contralateral right SUV max1.1). Nonspecific bowel activity. Left adnexal lesion without significant FDGactivity. MUSCULOSKELETAL: No abnormal FDG activity. Bilateral common hamstring origin tendinosis with associated FDGactivity. IMPRESSION: 1. Interval increase in FDG activity within left upper lobe pulmonarynodule in keeping with biopsy-proven lung malignancy 2. No FDG avid lymphadenopathy or osseous lesions 3. Nonspecific new mild FDG activity involving the left adrenal gland Please note: The CT was acquired at a low radiation dose settings. The images are ofnondiagnostic quality and used solely for purposes of attenuationcorrection and slice localization for the PET scan. If a diagnostic CTstudy is desired it must be ordered separately. -------- FINAL REPORT -------- Dictated By: Lyla Jackson Dictated Date: 12/07/2024 04:57 ET Assigned Physician: Llya Jackson Reviewed and Electronically Signed By: Lyla Jackson Signed Date: 12/07/2024 05:30 ET Workstation ID: [id number] Transcribed By: Self Edit Transcribed Date: 12/07/2024 04:57 ET Ирина Patterson MD IMG NM PROCEDURES Final Result from Last 3 Months Insurance MEDICARE MEDICAID - [place] Advance Directives * Full Code - Default (Latest Code Status on File) Date Activated Date Inactivated Comments 10/21/2024 9:48 AM 10/21/2024 4:28 PM This is orde r is used when code status has not been discussed with the patient, or code status is otherwise unknown/unconfirmed To update the patient's code status, place a code status order. Do not modify or discontinue any currently active code status orders. * Full Code - Default Date Activated Date Inactivated Comments 07/30/2024 7:45 AM 07/30/2024 2:46 PM This is orde r is used when code status has not been discussed with the patient, or code status is otherwise unknown/unconfirmed To update the patient's code status, place a code status order. Do not modify or discontinue any currently active code status orders. Care Teams It Applications Manager Relationship Specialty Start Date End Date Lindsay Nelson MD [address] [place] [address] [place] [address] PCP - General Internal Medicine 07/20/24 ISAURA Dill Physician Supervisor Mechanic [employer]il[employer]aking 06/26/24
--- OUTSIDE RECORDS SUMMARY | 2025-02-26 16:26 | XMS_ITS ---
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 COPD (chronic obstructive pu lmonary disease) (CMS/[facility] V24, CMS/HCC V28) 07/20/2024 Carpal tunnel syndrome, left 10/10/2020 Closed Colles' fracture of left radius with kalie nion 10/10/2020 Current Treatment and Therapy Plans No current plan information found. Past Treatment and Therapy Plans No past plan information found. Current Radiation Episodes * Radiation Therapy: LungOverview* First Treatment Date Latest Treatment Date Treatment Site Technique Goal Episode Provider 01/05/2025 01/15/2025 Lung Curative Ирина Patterson MD * Linked Problems Treatment Courses* Course 1 01/05/2025 - 01/15/2025 Treatment Sites Treatment Period Fraction Dose Fractions Total Dose ALEXANDRE 01/05/2025 - 01/15/2025 1,000 / 1,000 cGy 5 / 5 5,000 / 5,000 cGy Lifetime Dose Tracking * Chemical Lifetime Dose Automatic Entry Manual Entr y Fluoro Time 2.57 minutes 2.57 minutes 0 minutes Air Kerma 111.7 mGy 111.7 mGy 0 mGy
== END 2025-02-26 15:17 | disposition home or self-care (01) ==
LOC: HO.HPS 14:40
PROVIDERS: PCP Internal Medicine; Visit Provider Hospitalist
DX: J41.8 Mixed simple and mucopurulent chronic bronchitis (principal); J96.11 Chronic respiratory failure with hypoxia; F17.200 Nicotine dependence, unspecified, uncomplicated; R91.1 Solitary pulmonary nodule
CPT/HCPCS: 99214; G2211

== ENCOUNTER → 2025-02-26 14:39 | Outpatient (BNVA) | payer MEDICARE, MEDICAID, SELFPAY | PROVIDERS: PCP Internal Medicine; Visit Provider Hospitalist | DX: J41.8 Mixed simple and mucopurulent chronic bronchitis (principal); J96.11 Chronic respiratory failure with hypoxia; Z72.0 Tobacco use; R91.1 Solitary pulmonary nodule; Z99.81 Dependence on supplemental oxygen | CPT/HCPCS: 99212 ==

== ENCOUNTER 2025-04-23 10:27 | Outpatient (REF) | payer MEDICARE, MEDICAID, SELFPAY ==
[2025-04-23 10:41] LABS: MANUAL DIFF FLAG NO
[2025-04-23 10:54] LABS: Hematocrit 34.3 % (37.0-47.0); Hemoglobin 10.0 g/dl (12.0-16.0); Imm Gran Abs Auto 0.01 X10*3/uL (0.00-0.03); Imm Gran Pct Auto 0.2 % (0.0-0.4); Lymphocytes Absolute Auto 1.1 X10*3/uL (1.2-4.9); Mean Corpuscular HGB Conc 29.2 g/dl (31.0-35.0); Mean Corpuscular Hemoglobin 26.5 pg (27.0-33.0); Mean Corpuscular Volume 90.7 fL (80.0-98.0); NRBC Abs Auto 0.000 X10*3/uL (0.0-0.012); NRBC Pct Auto 0.0 /100WBC (0.0-0.2); Platelet Count 259 X10*3/uL (160-400); Red Blood Count 3.78 X10*6/uL (4.20-5.50); White Blood Count 5.0 X10*3/uL (4.8-10.8)
[2025-04-23 11:36] LABS: Alanine Aminotransferase 15 U/L (0-31); Albumin Level 4.4 g/dL (3.5-5.0); Alkaline Phosphatase 67 U/L (39-117); Anion Gap 12 (12-20); Aspartate Amino Transferase 20 U/L (5-31); Blood Urea Nitrogen 17 mg/dL (9-16); Calcium 9.9 mg/dL (8.4-10.2); Carbon Dioxide 33 mmol/L (22-29); Chloride 104 mmol/L (96-108); Cholesterol 226 mg/dL (<200); Estimated Glomerular Filt Rate > 60; HDL Cholesterol 64 mg/dL (>40); Potassium 4.6 mmol/L (3.3-5.1); Sodium 144 mmol/L (135-145); Total Protein 7.6 g/dL (6.5-8.0); Triglycerides 96 mg/dL (<150)
--- OUTSIDE RECORDS SUMMARY | 2025-04-23 12:05 | XMS_ITS ---
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 COPD (chronic obstructive pulmonary disease) Carpal tunnel syndrome, left 10/10/2020 Closed Colles' [...]
--- OUTSIDE RECORDS SUMMARY | 2025-04-23 12:05 | XMS_ITS | Clinical Summary ---
Author Organization [facility] Address [address] [place] [phone] Phone Care Team Providers Care Clinical Pharmacist Name Role Phone Lindsay Nelson MD Primary Care Provider [phone] Allergies No known active allergies Medications acetaminophen [...] general and how their size, shape, and supervisor policy change clerks time affect her level of suspicion for [...] Encounters Date Type Department Care Team Description 04/06/2025 11:30 AM EST Office Visit [facility] Hematology Oncology [address] [place] [phone] Aamir Jaime MD Primary lung adenocarcinoma, left (CMS/HCC V24, CMS/HCC V28) (Primary Dx) 02/23/2025 1:57 PM EDT - 02/23/2025 11:59 PM EDT Hospital Encounter [facility] Radiation Oncology [address] [place] [phone] Pamella Gonzales NP Primary lung adenocarcinoma, left (CMS/HCC V24, CMS/HCC V28) (Primary Dx) Discharge Disposition: Home or Self Care 02/03/2025 Results Follow-Up Pulmonology - [address] [phone] Paulette Berman MD 01/29/2025 9:51 AM EDT - 01/29/2025 11:59 PM EDT Hospital Encounter [facility] Ultrasound [address] [place] [phone] Thyroid nodule Discharge Disposition: Home or Self Care from Last 3 Months Surgical History Surgery Date Site/Laterality Comments APPENDECTOMY PROCEDURE: ME APPENDECTOMY OTHER SURGICAL HISTORY EYE SURGERY CATARACT EXTRACTION HYSTERECTOMY BRONCHOSCOPY 07/30/202407/30 Navigational bronchoscopy/EBUS with biopsies Medical History Medical History Date Comments Asthma DX:Asthma Osteoporosis DX:Osteoporosis Osteoarthritis DX:Osteoarthriti s Hyperlipidemia DX:Hyperlipidemi a COPD (chronic obstructive pu lmonary disease) ([facility], [facility] V28) Pulmonary nodule Joint pain 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 n Diabetes mellitus ([facility] V24, [facility] V28) Family History Medical History Relation Name [...] file Not on file Not on file Last Filed Vital Signs Vital Sign Reading Time Taken Comments Blood Pressure 156/42 04/06/2025 11:32 AM EST Pulse 83 04/06/2025 11:32 AM EST Temperature 36.7 C (98 F) 04/06/2025 11:32 AM EST Respiratory Rate 20 02/23/2025 2:15 PM EDT Oxygen Saturation 94% 04/06/2025 11: 32 AM EST 3L nasal cannula Inhaled Oxygen Concentration - - Weight 76.7 kg (169 lb) 04/06/2025 11:3 2 AM EST Height 160 cm (5' 3 ) 02/23/2025 2:15 PM EDT Body Mass Index 29.94 02/23/2025 2:15 PM EDT Plan of Treatment Upcoming Encounters Date Type Department Care Team (Late st Contact Info) Description 05/17/2025 8:15 AM EST Appointment [facility] CT Scan [address] [place] [phone] 05/28/2025 9:30 AM EST Appointment [facility] Radiation Oncology [address] [place] [phone] Pamella Gonzales NP [address] [place] [address] 06/21/2025 11:30 AM EST Office Visit [facility] Hematology Oncology [address] [place] [phone] Aamir Jaime MD [address] [place] [address] Health Maintenance Due Date Last Done Comments Colorectal Cancer Screening: Colonoscopy 1950 COVID-19 Vaccine (#1) 1955 DTaP,Tdap,and Td Vaccines (1 - Tdap) 1969 Zoster Vaccines (1 of 2) 1969 Depression Screening 05/06/2024 Cholesterol Screening (Lipid Panel) 07/09/2024 Hepatitis C Screening 07/09/2024 Lung Cancer Screening (Low D ose CT) 07/09/2024 Medicare Annual Wellness Visit 07/09/2024 Osteoporosis Screening (Bone Density Screening) 07/09/2024 Social Influencers of Health Screening 07/09/2024 Influenza Vaccine (#1) 2025 03/17/2024 RSV Immunization Adult Patie nts (1 - 1-dose 75+ series) 2025 Falls Risk Assessment 10/21/2025 10/21/2024 Pneumococcal Vaccine: [...] Comments US BX NDL THYROID PERC Routine 01/29/2025 11:38 AM EDT Thyroid nodule FINE NEEDLE ASPIRATION Routine 01/29/2025 11:07 AM EDT Thyroid nodule from Last 3 Months Results * US [...] Signed Date: 01/29/2025 17:40 ET Workstation ID: [id number] Transcribed By: Self Edit Transcribed Date: 01/29/2025 [...] Signed Date: 01/29/2025 17:40 ET Workstation ID: [id number] Transcribed By: Self Edit Transcribed Date: 01/29/2025 17:39 ET us Paulette Berman MD IMG US PROCEDURES Final Re sult * Fine needle aspiration (01/29/2025 11:07 AM EDT) Final Diagnosis A. Thyroid, left, fine needle aspiration, (ThinPrep, direct smears): Benign ([place] Category II). Consistent with follicular nodular disease 02/01/2025 1:50 PM EDT [facility] at 1349 EDT Specimen A Adequacy Satisfactory for evaluation 02/01/2025 1:50 PM EDT [facility] Gross Description A. Thyroid, left throid nodule fna: Received in Cytolyt is 30 ml of pink fluid. One ThinPrep is made. Also received are three air dried direct smears, and three alcohol fixed smears. rp 02/01/2025 1:50 PM EDT [facility] Intraoperative Consultation A. Thyroid, left throid nodule fna: FNA - ADEQUATE JS 02/01/2025 1:50 PM EDT [facility] Disclaimer Unless otherwise specified, all tissue is 10% NB formalin fixed and paraffin embedded. Technical cytopathology services provided by [facility], at [address] [place] [address] (CLIA # [id number]/Abhishek Milan MD, Typewriter Repairer.) 02/01/2025 1:50 PM EDT [facility] Fine Needle Aspirate Thyroid structure / Unknown 01/29/2025 11:07 AM EDT 01/29/2025 11:32 AM EDT us Zhang Hatfield MD LAB PATHOLOGY ORDERABLES Final Result [facility]) [facility] [address] [place] [address], [place] [phone] from Last 3 Months Insurance MEDICARE [place]ICA[place] - [place] Advance Directives * Full Code - Default [...] currently active code status orders. Care Teams Clinical Pharmacist Relationship Specialty Start Date End Date Lindsay Nelson MD [address] [place] [address] [place] [address] PCP - General Internal Medicine 07/20/24 ISAURA Dill Physician Marketing Rotation Associate 06/26/24
[2025-04-23 12:27] LABS: Microalbum/Creatinine Ratio Ur 530.9 ug/mg cr (<30)
== END 2025-04-23 10:28 | disposition home or self-care (01) ==
LOC: HO.LAB 10:27
PROVIDERS: PCP Internal Medicine; Visit Provider Internal Medicine
DX: C34.90 Malignant neoplasm of unspecified part of unspecified bronchus or lung (principal); E11.9 Type 2 diabetes mellitus without complications; E78.00 Pure hypercholesterolemia, unspecified; I73.00 Raynaud's syndrome without gangrene; Z72.0 Tobacco use
CPT/HCPCS: 36415; 80053; 80061; 82043; 82570; 83036; 85025